=== PATIENT | male | born 1940 | race Caucasian/White ===

== ENCOUNTER → 2016-07-05 | Outpatient (CLI) | payer OTHER ==
[~2016-07-05] MED LIST: ACET500T57 PO; MULT-506 PO; PRD/1 PO; ZNTT/150 PO
--- NOTE | 2016-07-05 12:57 | DIAGNOSTIC IMAGING REPORT ---
RIGHT LOWER EXTREMITY VENOUS DOPPLER HISTORY: Right calf pain and swelling. COMPARISON STUDY: None. FINDINGS: There is normal compressibility, flow, and augmentation within the right lower extremity deep venous system. There is a 3.1 x 2.3 x 1.8 cm popliteal cyst. IMPRESSION: No DVT within the right lower extremity. Popliteal cyst. Electronically signed by: Ab Morrison M.D. 07/05/2016 12:55 PM Dictated Date/Time: 07/05/2016 12:55 PM
== END | disposition home or self-care (01) ==
LOC: C.ULTRBC 12:13
PROVIDERS: ATTEND Orthopaedic Surgery
DX: M79.661 Pain in right lower leg (principal); R22.41 Localized swelling, mass and lump, right lower limb

== ENCOUNTER → 2016-08-04 | Outpatient (CLI) | payer OTHER ==
--- NOTE | 2016-08-04 11:43 | DIAGNOSTIC IMAGING REPORT ---
ULTRASOUND RIGHT LOWER EXTREMITY VENOUS CLINICAL HISTORY: Right leg pain and swelling. COMPARISON STUDY: Right lower extremity venous ultrasound dated 07/05/2016. TECHNIQUE: Real-time, grayscale, and color Doppler sonography of the deep veins of the right lower extremity was performed from the inguinal crease to the calf. Compression and augmentation were utilized. FINDINGS: There is no sonographic evidence of deep venous thrombosis identified in the right lower extremity. The common femoral, superficial femoral, and popliteal veins are patent and normally compressible. The greater saphenous vein and the profunda femoris vein at the junction with the common femoral vein are clear. The visualized calf veins are patent. A small popliteal cyst 3.8 x 1.2 x 2.9 cm. Soft tissue edema is present in the right leg. IMPRESSION: 1. There is no sonographic evidence of deep venous thrombosis identified in the right lower extremity. 2. Small popliteal cyst. Electronically signed by: Chepe Acevedo M.D. 08/04/2016 11:41 AM Dictated Date/Time: 08/04/2016 11:40 AM
== END | disposition home or self-care (01) ==
LOC: C.ULTRBC 11:11
PROVIDERS: ATTEND Nurse Practitioner Adult Health
DX: R60.0 Localized edema (principal); M71.21 Synovial cyst of popliteal space [Baker], right knee

== ENCOUNTER → 2016-10-07 | Outpatient (CLI) | payer OTHER ==
[2016-10-07 16:54] LABS: SYNOVIAL FLUID APPEARANCE CLOUDY; SYNOVIAL FLUID COLOR AMBER; SYNOVIAL FLUID MONONUC RELAT 68.6 %; SYNOVIAL FLUID POLYNUC RELAT 31.4 %
[2016-10-11 04:37] LABS: LYME DNA PCR CSF OR SYNOVIAL Not detected (Not Detected); LYME DNA SOURCE Synovial Fluid
== END | disposition home or self-care (01) ==
LOC: C.LABBC 14:24
PROVIDERS: ATTEND Orthopaedic Surgery
DX: M25.461 Effusion, right knee (principal)

== ENCOUNTER → 2016-10-31 | Outpatient (CLI) | payer OTHER ==
[2016-10-31 11:43] LABS: BASO % 0.2 %; BASO ABS # 0.01 K/uL (0-0.2); COMPLETE YES; EOS % 4.7 %; HEMATOCRIT 37.2 % (42-52); IG% 0.7 %; LYMPH % 15.2 %; LYMPH ABS # 0.65 K/uL (1.2-3.4); MEAN CELL VOLUME 87.9 fL (80-100); MEAN CORPUSCULAR HEMOGLOBIN 29.6 pg (25-34); MEAN CORPUSCULAR HGB CONC 33.6 g/dl (32-36); MEAN PLATELET VOLUME 9.4 fL (7.4-10.4); MONO % 8.2 %; PLATELET COUNT 185 K/uL (130-400); RED BLOOD COUNT 4.23 M/uL (4.7-6.1); WHITE BLOOD COUNT 4.27 K/uL (4.8-10.8)
[2016-10-31 12:10] LABS: BLOOD UREA NITROGEN 23 mg/dl (7-18); BUN/CREATININE RATIO 23.5 (10-20); C-REACTIVE PROTEIN < 0.29 mg/dl (0-0.29); CARBON DIOXIDE 29 mmol/L (21-32); CHLORIDE 106 mmol/L (98-107); CREATININE 0.96 mg/dl (0.60-1.40); GLUCOSE 93 mg/dl (70-99); SODIUM 141 mmol/L (136-145)
[2016-10-31 12:11] LABS: PHOSPHORUS 3.4 mg/dl (2.5-4.9)
[2016-10-31 13:19] LABS: CALCIUM 9.4 mg/dl (8.5-10.1)
== END | disposition home or self-care (01) ==
LOC: C.LAB 11:01
PROVIDERS: ATTEND Nurse Practitioner Family
DX: M06.9 Rheumatoid arthritis, unspecified (principal); M25.561 Pain in right knee

== ENCOUNTER → 2017-04-10 | Outpatient (CLI) | payer OTHER ==
[2017-04-10 10:17] LABS: BLOOD UREA NITROGEN 23 mg/dl (7-18); BUN/CREATININE RATIO 21.8 (10-20); CALCIUM 8.9 mg/dl (8.5-10.1); CARBON DIOXIDE 29 mmol/L (21-32); CHLORIDE 106 mmol/L (98-107); CHOLESTEROL 176 mg/dl (0-200); CREATININE 1.05 mg/dl (0.60-1.40); GLUCOSE 90 mg/dl (70-99); POTASSIUM 4.6 mmol/L (3.5-5.1); SODIUM 139 mmol/L (136-145)
[2017-04-10 10:21] LABS: CHOLESTEROL/HDL RATIO 4.1; HDL CHOLESTEROL 43 mg/dl; LDL CHOLESTEROL CALCULATED 120 mg/dl; TRIGLYCERIDES 65 mg/dl (0-150); VERY LOW DENSITY LIPOPROT CALC 13 mg/dl
== END | disposition home or self-care (01) ==
LOC: C.LAB 09:00
PROVIDERS: ATTEND Nurse Practitioner Family
DX: Z13.220 Encounter for screening for lipoid disorders (principal)

== ENCOUNTER → 2018-01-15 | Outpatient (CLI) | payer OTHER ==
[~2018-01-15] MED LIST changes: -ACET500T57 PO; +ACET500T58 PO; +RANI150T85 PO; -ZNTT/150 PO
[2018-01-15 11:28] LABS: BLOOD UREA NITROGEN 29 mg/dl (7-18); CALCIUM 8.9 mg/dl (8.5-10.1); CARBON DIOXIDE 28 mmol/L (21-32); CREATININE 0.92 mg/dl (0.60-1.40); GLUCOSE 87 mg/dl (70-99); POTASSIUM 4.4 mmol/L (3.5-5.1); SODIUM 141 mmol/L (136-145)
== END | disposition home or self-care (01) ==
LOC: C.LABBC 09:02
PROVIDERS: ATTEND Family Medicine Adult Medicine
DX: M06.9 Rheumatoid arthritis, unspecified (principal)

== ENCOUNTER 2018-07-20 10:12 | Inpatient (IN) ==
--- NOTE | 2018-06-20 10:41 | PAT Medication Instructions ---
Medication Instructions Date of Service June 20, 2018 Home Medications amoxicillin-pot clavulanate 1 tab PO Q12H ibuprofen 600 mg PO TID PRN omeprazole magnesium [Prilosec OTC] 20 mg PO QAM Continue as directed amoxicillin-pot clavulanate 1 tab PO Q12H ASK your surgeon for instructions ibuprofen 600 mg PO TID PRN Take morning of surgery With a small sip of water, OTHERWISE NOTHING TO EAT OR DRINK AFTER MIDNIGHT: omeprazole magnesium [Prilosec OTC] 20 mg PO QAM Other Notes If you have any questions please call us at [phone] or [phone] or [phone] or [phone]
--- NOTE | 2018-06-20 11:02 | Anesthesiology Consultation ---
Date of Service June 20, 2018 Assessment & Plan (1) Encounter for pre-operative examination: Chart Review Chart Review: Acceptable Risk for Surgery and Patient seen in Pre Admission Testing Teaching & Discussion Instructed NPO after midnight before surgery, except medications with 15 cc of water. Medication instructions provided according to the PAT guidelines. History Surgery Operation Date: 07/20/18 07:00 Proposed Procedures p Left Total Knee Arthroplasty - Hai Landeros, Height/Weight Height: 5 ft 7 in Weight: 68.8 kg Allergies Allergy/AdvReac Type Severity Reaction Status Date / Time No Known Allergies Allergy Verified 06/15/18 10:53 Medications Home Medications Medication Instructions Recorded Confirmed Last Taken amoxicillin-pot clavulanate 1 tab PO Q12H 06/15/18 06/15/18 Unknown ibuprofen 600 mg PO TID PRN 06/15/18 06/15/18 Unknown omeprazole magnesium [Prilosec OTC] 20 mg PO QAM 06/15/18 06/15/18 Unknown Past Medical History Medical History GERD (gastroesophageal reflux disease) Lyme disease 3-4 YRS AGO TREATED AT [facility]-RESIDUAL JOINT DISCOMFORT PER PT Osteoarthritis Salivary gland adenitis currently being treated for with Augmentin Past Family History Family History Father Family hx of colon cancer Past Surgical History Surgical History History of appendectomy History of colonoscopy History of esophagogastroduodenoscopy (EGD) History of herniorrhaphy Past Anesthesia History No Hx of Anesthesia Complications and No Family Hx of Anesthesia Complications History of PONV No Motion Sickness Screening History of Motion Sickness: No Social History Smoking Status: Never smoker Do You Dip or Chew Tobacco: No Alcohol type: beer alcohol intake frequency: a few times a week Hx Substance Use: No Exercise / Class Metabolic Activity II 4-5 Yardwork/Stairs/Walk up hill (limited by knee pain but does stairs daily without SOB or CP) Review of Systems Pt denies any recent chest pain, shortness of breath, palpitations, fever or URI. Recent cough, mild, no fever. Physical Exam Vital Signs BP: 163/79 (pt and family recently discussed this with PCP, no meds advised at this time) P: 68 bpm SPO2: 98% RA T: 97.8 F R: 18 ENMT Mouth: + dentures (lower partial); no chipped teeth and no loose teeth Thyromental Distance: < 3.5 Finger Breadths (3) Mallampati Class: II Neck normal visual inspection; neck extension not limited Respiratory normal respiratory effort Auscultation: + diminished lung sounds (in bases); no crackles, no rhonchi and no wheezes Cardiovascular Rate/Rhythm: regular rate and regular rhythm Heart Sounds: no murmur Vessels: no carotid bruit Extremities: no edema Testing Electrocardiogram Date: 06/20/18 Findings: + NSR @ (70) Chest X-Ray Date: 06/20/18 Findings: + NAD Cardiomegaly and emphysema. Laboratory Results 06/20/18 Unknown 06/20/18 11:20 Blood Type A Positive 06/20/18 Unknown Antibody Screen NEGATIVE 06/20/18 Unknown PT 10.7 Seconds (9.0-12.0) 06/20/18 Unknown INR 1.1 (0.9-1.1) 06/20/18 Unknown APTT 30.0 Seconds (21.0-31.0) 06/20/18 Unknown
--- NOTE | 2018-06-20 11:49 | XRay Report ---
TWO VIEW CHEST CLINICAL HISTORY: Preoperative examination. FINDINGS: PA and lateral chest radiographs are compared to study dated 02/19/2010. The heart is enlarge d and there is atherosclerotic calcification of the thoracic aorta. The pulmonary vasculature is nonc ongested. Emphysema and chronic interstitial thickening are similar to previous. No airspace consolid ation or pleural effusion is identified. There is mild bibasilar scarring/atelectasis. There is no pn eumothorax. The skeletal structures are osteopenic. The bony thorax appears intact. Degenerative duffy ge is seen throughout the thoracic spine. IMPRESSION: Cardiomegaly and emphysema with no active disease in the chest. Electronically signed by: Chepe Acevedo M.D. 06/20/2018 11:48 AM
[2018-06-20 13:17] LABS: Basophils # (auto) 0.01 K/uL (0-0.2); Basophils % (auto) 0.2 %; Eosinophils % (auto) 4.5 %; Hematocrit (blood only) 35.7 % (42-52); Immature Granulocytes % (auto) 2.3 %; Lymphocytes # (auto) 0.53 K/uL (1.2-3.4); Mean Corpuscular Hgb Conc 33.6 g/dL (32-36); Mean Corpuscular Volume 88.6 fL (80-100); Mean Platelet Volume 10.2 fL (7.4-10.4); Monocytes % (auto) 11.4 %; Neutrophils # (auto) 3.06 K/uL (1.4-6.5); Neutrophils % (auto) 69.6 %; Platelet Count 189 K/uL (130-400); RDW Coefficient of Variation 14.3 % (11.5-14.5); RDW Standard Deviation 46.8 fL (36.4-46.3); Red Blood Count 4.03 M/uL (4.7-6.1)
[2018-06-20 13:29] LABS: INR 1.1 (0.9-1.1); Partial Thromboplastin Ratio 1.2; Prothrombin Time 10.7 Seconds (9.0-12.0)
[2018-06-20 13:37] LABS: BUN Creatinine Ratio 29.6 (10-20); Calcium 8.7 mg/dl (8.5-10.1); Creatinine Clr Calc Pharmacy 61.5 ml/min; Est GFR (African American) 92.6; Est GFR (Non-African American) 79.9; Potassium 4.3 mmol/L (3.5-5.1)
--- NOTE | 2018-07-19 06:32 | History & Physical Report ---
Date of Service July 19, 2018 Assessment & Plan (1) Osteoarthritis of left knee: We will proceed with a left total knee arthroplasty. Postoperatively he will be placed on aspirin for DVT prophylaxis. He will be kept overnight in the hospital for postoperative medical management. He plans to use energy physical therapy upon discharge. Present on Admission?: Yes History of Present Illness Chief Complaint: Primary osteoarthritis of the left knee Primary Care Provider: Maria D Jimenez MD Tremaine is a pleasant 77-year-old male who is been having a long history of chronic bilateral knee pain. X-rays and clinical examination have been diagnostic for primary osteoarthritis of both knees. His left knee is hurting him more than his right. After failing extensive conservative treatment including years of cortisone injections, he has elected to proceed with a left total knee arthroplasty. Allergies Allergy/AdvReac Type Severity Reaction Status Date / Time No Known Allergies Allergy Verified 06/15/18 10:53 Home Medications Home Medications Medication Instructions Recorded Confirmed Type amoxicillin-pot clavulanate 1 tab PO Q12H 06/15/18 06/15/18 History ibuprofen 600 mg PO TID PRN 06/15/18 06/15/18 History omeprazole magnesium [Prilosec OTC] 20 mg PO QAM 06/15/18 06/15/18 History Past Med/Surg History Medical History GERD (gastroesophageal reflux disease) Lyme disease 3-4 YRS AGO TREATED AT [facility]-RESIDUAL JOINT DISCOMFORT PER PT Osteoarthritis Salivary gland adenitis currently being treated for with Augmentin Surgical History History of appendectomy History of colonoscopy History of esophagogastroduodenoscopy (EGD) History of herniorrhaphy Family History Father Family hx of colon cancer Social History Current Living Situation: Spouse Other Information That Helps Us Care for You: No Feels Safe at Home: Yes Safety Concerns: Feels Safe At This Time Smoking Status: Never smoker Do You Dip or Chew Tobacco: No Hx Substance Use: No Beliefs That Will Affect Care: None Preferred Language: Azeri Communication Ability: Effective Log Driver Required: No
[~2018-07-20 10:12] MED LIST changes: -ACET500T58 PO; +ACETAMINOPHEN 500 MG TAB PO SCH; +BUPIVACAINE 0.5 % 5 MG/1 ML PF 10ML VIAL ONE; +CEFAZOLIN 2000MG 2,000 MG/15 ML SYR IV SCH; +FAMOTIDINE 20 MG TAB PO SCH; +GABAPENTIN 300 MG PO SCH; +LR 15ML/HR IV SCH; +LR 60ML/HR IV SCH; -MULT-506 PO; -PRD/1 PO; -RANI150T85 PO; +ROPIVACAINE 0.5% 5 MG/ML 30 ML VIAL ONE; +ROPIVACAINE 0.5% HCL/PF 150 MG, BUPIVACAINE 0.5% MPF 30 ML, EPINEPHrine 30MG/30ML (OR U... INFIL SCH; +TRANEXAMIC ACID 1,000 MG **IV Intra-op IV SCH; +TRANEXAMIC ACID 1,000 MG **IV Pre-op IV SCH
--- NOTE | 2018-07-20 10:20 | History & Physical Bridge Note ---
Date of Service July 20, 2018 History & Physical Bridge Note I have examined the patient, reviewed the History & Physical and in the interval since the performance of the History & Physical I have noted the following changes of clinical significance: no changes noted
[2018-07-20] MEDS: LR 500ML BOLUS, THEN 15ML/HR IV SCH ×6 (10:39→19:13)
[2018-07-20] MEDS ORDERED: ORTHO JOINT ANESTHETIC ONE (10:40)
[2018-07-20] MEDS ORDERED: POVIDONE-IODINE OP SOLN 30 ML BTL ONE (10:40)
[2018-07-20] MEDS ORDERED: BACITRACIN INJ 50,000 UNIT VIAL ONE (10:40)
[2018-07-20] MEDS ORDERED: PROPOFOL IV EMULSION 10 MG/ML 20 ML VIAL IV ONE (10:42)
[2018-07-20] MEDS ORDERED: LIDOCAINE HCL 2% 2 ML VIAL/AMP(20MG/ML) INFIL ONE (10:42)
[2018-07-20] MEDS ORDERED: fentaNYL citrate 100 MCG/2 ML VIAL ONE (10:42)
[2018-07-20] MEDS ORDERED: ONDANSETRON INJ 2 MG/ML 2 ML VIAL ONE (10:43)
[2018-07-20] MEDS ORDERED: DEXAMETHASONE SOD INJ 4 MG/ML VIAL ONE (10:43)
[2018-07-20] MEDS ORDERED: ATROPINE SULFATE 0.1 MG/ML 10ML SYR IV PRN (11:19)
[2018-07-20] MEDS ORDERED: ePHEDrine sulfate 50 MG/ML AMP IV PRN (11:19)
[2018-07-20] MEDS ORDERED: MIDAZOLAM HCL 1 MG/ML 2ML VIAL ONE (11:24)
--- NOTE | 2018-07-20 13:25 | Operative Report ---
Post Operative Report Pre & Post Diagnosis Operation Date: 07/20/18 12:30 Pre-Op Diagnosis: Left Knee Degenerative Joint Disease Post-Op Diagnosis: Left Knee Degenerative Joint Disease Procedure Operation Date: 07/20/18 12:30 Actual Procedures p Left Total Knee Arthroplasty(Left) - Hai Landeros DO Surgeon Hai Landeros DO Valuation Consultant Hai Cervantes PAC Estimated Blood Loss 50 Findings Consistent with Post-Op Diagnosis Specimens Left femoral and tibial bone Complications none Disposition Disposition: Recovery Room Indications Tremaine is a pleasant 77-year-old male who presented my office with chronic increasing left knee pain. X-rays and clinical examination were diagnostic for primary osteoarthritis of the left knee. After failing extensive conservative treatment, he elected to proceed with a left total knee arthroplasty. Description of Procedure Implants used: I used a [employer]omet Vanguard total knee arthroplasty system with a size 75 femur, 75 tibia, 34 patella, and a size 10 PS polyethylene bearing. All components were cemented in place with Palacos G cement. The patient arrived [facility] for the above procedure. There were seen in the preoperative holding area and the operative extremity was identified and signed. There were given a preoperative antibiotic, a spinal anesthetic and an adductor nerve block. There were taken back to the operating room and laid on the table in supine position. There were given basic sedation. The operative knee was then prepped and draped in sterile fashion. A timeout was done, and the patient and the operative extremity was properly identified. A midline incision was made directly over the patella. Dissection was taken down to the extensor mechanism. A subvastus arthrotomy was used. The medial retinaculum was released and the fat pad was mostly left intact. The knee was flexed and the ACL, PCL, and meniscus were removed. A drill was sent down the center of the femoral canal followed by an intramedullary junie. Off that junie a distal femoral cutting block was placed. 9 mm was resected off the distal femur at 5� of valgus. A posterior referencing AP sizing guide was then placed on the distal femur. The femur measured to be a size 75. 2 drill holes were placed in 3� of external rotation. A 4-in-1 cutting block was then impacted into place. Anterior posterior and chamfer cuts were then made. The posterior stabilizing box guide was then impacted into place and the box was resected for the posterior stabilizing component. The proximal tibia was then exposed. A drill was sent down the center of the tibial canal followed by an intramedullary junie. Off that junie a proximal tibial resection guide was placed. The proximal tibia was then resected. The tibia measured to be a size 75. The tibial plate was then placed in the appropriate rotation and the tibia was punched. The posterior aspect of the knee was then opened up and any additional meniscus fragments and osteophytes were removed. Trial components were then placed. I used a size 10 PS polyethylene insert. The knee was brought through a full range of motion and felt to be stable. The patella was then everted and 8 mm was resected off the posterior aspect of the patella. The patella measured to be a size 34. 3 peg holes were then drilled. A trial patella was placed. The knee was once again brought through a full range of motion and felt to be stable. Trial components were then removed. The surrounding soft tissues were injected with 100 cc of an orthopedic pain control cocktail. All components were then cemented into place with Palacos G cement. The final polyethylene insert was then snapped into place and the anterior bar was locked. Once cement was dry the tourniquet was deflated. Hemostasis was obtained. A dilute betadyne lavage was then done for 3 minutes. The joint was then irrigated with normal saline solution. The subvastus arthrotomy was then closed with #1 Vicryl suture. The skin was closed with 2-0 Vicryl, 3-0V lock suture, and noemí. A soft compressive dressing was placed. The patient was then transferred to a hospital bed and taken to the postanesthesia care unit in stable condition. They tolerated the procedure well. I attest to the content of the Intraoperative Record and any orders documented therein. Any exceptions are noted below.
--- NOTE | 2018-07-20 14:19 | XRay Report ---
XR knee LT 2V routine CLINICAL HISTORY: Surgical Post Op COMPARISON: 09/14/2012 DISCUSSION: There are postsurgical changes of a total left knee arthroplasty and patellar resurfacing . The femoral and tibial components appear well seated. Overlying skin noemí are evident. There is air within the soft tissues consistent with recent surgery. IMPRESSION: Postsurgical changes of a total left knee arthroplasty. Electronically signed by: Ean Alvarez M.D. 07/20/2018 2:18 PM
--- NOTE | 2018-07-20 14:57 | Anesthesiology Progress Note ---
Date of Service July 20, 2018 Anesthesia Post Procedure Vital Signs Vital Signs: Temp Pulse Pulse Resp BP Pulse Ox 07/20/18 14:35 63 14 147/79 H 100 07/20/18 14:25 63 18 149/76 H 100 07/20/18 14:15 67 15 145/83 H 100 07/20/18 14:05 62 15 153/88 H 100 07/20/18 13:57 36.4 C L 69 21 143/79 H 100 07/20/18 10:47 36.5 C 75 20 157/83 H 99 Pain Intensity Left Knee: Pain Intensity: 8 Notes Mental Status: alert / awake / arousable and participated in evaluation Patient Amnestic to Procedure: Yes Nausea / Vomiting: adequately controlled Pain: adequately controlled Airway Patency, RR, SpO2: stable & adequate BP & HR: stable & adequate Hydration State: stable & adequate Neuraxial Anesthesia: was administered and sensory block is resolving Anesthetic Complications: no major complications apparent
[2018-07-20] MEDS ORDERED: MAGNESIUM HYDROXIDE SUSP 30 ML UDC PO PRN (15:23)
[2018-07-20] MEDS ORDERED: HYDROmorphone INJ 0.5 MG/0.5 ML SYR IV PRN (15:23)
[2018-07-20] MEDS ORDERED: NALOXONE HCL 0.4 MG/1 ML VIAL/CARP IV PRN (15:23)
[2018-07-20] MEDS ORDERED: BISACODYL 10 MG SUPP PR PRN (15:23)
[2018-07-20] MEDS ORDERED: ONDANSETRON INJ 2 MG/ML 2 ML VIAL IV PRN (15:23)
[2018-07-20] MEDS ORDERED: OXYCODONE HCL IR 5 MG TAB (IMMEDIATE RELEASE) PO PRN (15:23)
[2018-07-20] MEDS ORDERED: METOCLOPRAMIDE HCL INJ 5 MG/ML 2 ML VIAL IV PRN (15:23)
[2018-07-20] MEDS ORDERED: PNEUMOCOCCAL ADMINISTRATION CHARGE ONE (16:15)
[2018-07-20] MEDS ORDERED: PNEUMOCOCCAL POLYSACCHARIDES 25 MCG/0.5 ML VIAL/SYR IM ONE (16:15)
[2018-07-20] MEDS: SODIUM CHLORIDE 0.9% 1000ML 1,000 ML IV SCH (17:43)
[2018-07-20] MEDS: KETOROLAC TROMETHAMINE 15 MG/ML VIAL IV SCH ×2 (17:47→22:00)
[2018-07-20] MEDS: CEFAZOLIN 1000MG 1,000 MG/7.5 ML SYR IV SCH (20:30)
[2018-07-20] MEDS: DOCUSATE SODIUM 100 MG CAP PO SCH (20:30)
[2018-07-20] MEDS: ASPIRIN 81 MG ECTAB PO SCH (20:30)
[2018-07-20] MEDS ORDERED: SENNA 8.6 MG TAB PO SCH (21:00)
[2018-07-20] MEDS: ACETAMINOPHEN 500 MG TAB PO SCH (22:00)
[2018-07-21] MEDS: CEFAZOLIN 1000MG 1,000 MG/7.5 ML SYR IV SCH (04:04)
[2018-07-21] MEDS: SODIUM CHLORIDE 0.9% 1000ML 1,000 ML IV SCH (04:40)
[2018-07-21 05:55] LABS: Hematocrit (blood only) 29.1 % (42-52); Hemoglobin 9.8 g/dL (14.0-18.0); Mean Corpuscular Hgb Conc 33.7 g/dL (32-36); Mean Corpuscular Volume 86.6 fL (80-100); Mean Platelet Volume 9.7 fL (7.4-10.4); Platelet Count 125 K/uL (130-400); RDW Coefficient of Variation 14.3 % (11.5-14.5); RDW Standard Deviation 45.7 fL (36.4-46.3); Red Blood Count 3.36 M/uL (4.7-6.1); White Blood Count 6.83 K/uL (4.8-10.8)
[2018-07-21] MEDS: ACETAMINOPHEN 500 MG TAB PO SCH (06:07)
[2018-07-21] MEDS: KETOROLAC TROMETHAMINE 15 MG/ML VIAL IV SCH ×2 (06:07→09:16)
[2018-07-21 06:22] LABS: BUN Creatinine Ratio 29.1 (10-20); Creatinine Clr Calc Pharmacy 62.2 ml/min; Est GFR (African American) 93.8; Est GFR (Non-African American) 80.9
--- NOTE | 2018-07-21 07:07 | Orthopedic Progress Note ---
Date of Service July 21, 2018 Assessment & Plan (1) Osteoarthritis of left knee: Overall he is doing very well. Is not having much pain in the left knee. I think the block is still working a little bit. He will be seen by physical therapy today for ambulation. If he does well today then he can be discharged home with home physical therapy. He is on aspirin for DVT prophylaxis and oxycodone for pain control. He will follow-up with orthopedics in 2 weeks. Present on Admission?: Yes Subjective Bob was seen and examined at bedside this morning. Overall is doing very well. Is not having much pain in the left knee. He is been up and ambulating to the bathroom. He has no complaints. Physical Exam 2 Vital Signs (Past 24 Hours): Last Vital Signs Temp 36.4 C L 07/21/18 03:12 Pulse 75 07/21/18 03:12 Resp 16 07/21/18 03:12 BP 165/83 H 07/21/18 03:12 Pulse Ox 99 07/21/18 03:12 Musculoskeletal: Physical examination of the left knee, the dressing is clean and dry. His legs in full extension. He still some numbness of his lower extremity. He is unable to do dorsiflexion of his ankle at this point but appears the block is still working. Results & Data Laboratory Results H & H 06/20/18 07/21/18 Range/Units Unknown 05:32 Hgb 12.0 L 9.8 L (14.0-18.0) g/dL Hct 35.7 L 29.1 L (42-52) % Coagulation 06/20/18 Range/Units Unknown INR 1.1 (0.9-1.1) Diagnostic Findings Postoperative x-rays of the left knee show the prosthesis to be in anatomic alignment without any evidence of fracture, dislocation, or loosening.
--- NOTE | 2018-07-21 07:09 | Discharge Summary ---
Date of Service July 21, 2018 Admission HPI Per Admitting Provider Tremaine is a pleasant 77-year-old male who is been having a long history of chronic bilateral knee pain. X-rays and clinical examination have been diagnostic for primary osteoarthritis of both knees. His left knee is hurting him more than his right. After failing extensive conservative treatment including years of cortisone injections, he has elected to proceed with a left total knee arthroplasty. Specialty Data Orthopedic H & H 06/20/18 07/21/18 Range/Units Unknown 05:32 Hgb 12.0 L 9.8 L (14.0-18.0) g/dL Hct 35.7 L 29.1 L (42-52) % Coagulation 06/20/18 Range/Units Unknown INR 1.1 (0.9-1.1) Discharge Data Consultations 07/20/18 15:23 Consult Case Management - Discharge Planning Routine Procedures Performed Operation Date: 07/20/18 12:30 Actual Procedures p Left Total Knee Arthroplasty(Left) - Hai Landeros DO Hospital Course (1) Osteoarthritis of left knee: On July 20, 2018 Bob arrived at [facility] and underwent a left total knee arthroplasty without complication. He had a spinal anesthetic and a left adductor nerve block. Postoperatively he was started on aspirin for DVT prophylaxis and discharged to general orthopedic floors. His hospital course was uneventful. On postop day #1 his H&H was stable and his pain was well controlled. He was able to ambulate well with physical therapy. He was discharged to home with home physical therapy. He will follow-up with orthopedics in 2 weeks. Discharge Instructions Home Medications Medication Instructions Recorded Confirmed amoxicillin-pot clavulanate 1 tab PO Q12H 06/15/18 07/20/18 ibuprofen 600 mg PO TID PRN 06/15/18 07/20/18 omeprazole magnesium [Prilosec OTC] 20 mg PO QAM 06/15/18 07/20/18 Previous Rx's Medication Instructions Recorded aspirin [Ecotrin Low Strength] 81 mg PO BID #84 tab 07/21/18 oxycodone 5 - 10 mg PO Q4H PRN #40 tab 07/21/18
[2018-07-21] MEDS ORDERED: PANTOprazole 40 MG TAB PO SCH (09:00)
[2018-07-21] MEDS ORDERED: MULTIVITAMIN TAB PO SCH (09:00)
[2018-07-21] MEDS: DOCUSATE SODIUM 100 MG CAP PO SCH (09:08)
[2018-07-21] MEDS: ASPIRIN 81 MG ECTAB PO SCH (09:09)
== END 2018-07-21 11:50 | disposition home or self-care (01) | DRG 470 ==
LOC: ASU 10:12 → 3E 13:28

== ENCOUNTER 2019-09-25 15:42 | Inpatient (IN) ==
[2019-09-25] MEDS ORDERED: ASPIRIN CHEW 324 MG PO STA (15:50)
[2019-09-25 16:24] LABS: Eosinophils # (auto) 0.14 K/uL (0-0.5); Eosinophils % (auto) 3.7 %; Hematocrit (blood only) 31.4 % (42-52); Hemoglobin 10.6 g/dL (14.0-18.0); Immature Granulocytes # (auto) 0.02 K/uL (0.00-0.02); Immature Granulocytes % (auto) 0.5 %; Lymphocytes # (auto) 0.77 K/uL (1.2-3.4); Lymphocytes % (auto) 20.4 %; Mean Corpuscular Hemoglobin 29.5 pg (25-34); Mean Corpuscular Hgb Conc 33.8 g/dL (32-36); Mean Corpuscular Volume 87.5 fL (80-100); Mean Platelet Volume 10.4 fL (7.4-10.4); Monocytes # (auto) 0.42 K/uL (0.11-0.59); Monocytes % (auto) 11.1 %; Neutrophils # (auto) 2.42 K/uL (1.4-6.5); Neutrophils % (auto) 64.3 %; Platelet Count 167 K/uL (130-400); RDW Coefficient of Variation 15.3 % (11.5-14.5); RDW Standard Deviation 49.6 fL (36.4-46.3); Red Blood Count 3.59 M/uL (4.7-6.1); White Blood Count 3.77 K/uL (4.8-10.8)
--- NOTE | 2019-09-25 16:29 | XRay Report ---
SINGLE VIEW CHEST CLINICAL HISTORY: Atypical chest pain. Dyspnea. FINDINGS: An AP, portable, upright chest radiograph is compared to study dated 06/20/2018. The examinat ion is degraded by portable technique and patient rotation. The heart is mildly enlarged noting athe rosclerotic calcification of the thoracic aorta. The pulmonary vasculature is noncongested. Chronic i nterstitial thickening is similar to previous. There is mild bibasilar scarring/atelectasis. No airsp maria teresa consolidation or large pleural effusion is identified. No pneumothorax is seen. The skeletal stru ctures are osteopenic. The bony thorax is grossly intact. Degenerative change is noted in the shoulde rs. IMPRESSION: Cardiomegaly with no active disease in the chest. ACT 112: Negative or not required by law. Electronically signed by: Chepe Acevedo M.D. 09/25/2019 4:27 PM
[2019-09-25 16:31] LABS: Albumin Level 3.3 gm/dl (3.4-5.0); BUN Creatinine Ratio 24.4 (10-20); Calcium 8.7 mg/dl (8.5-10.1); Creatinine Clr Calc Pharmacy 50.6 ml/min; Est GFR (African American) 75.1; Est GFR (Non-African American) 64.8
[2019-09-25 16:42] LABS: Partial Thromboplastin Ratio 1.1; Partial Thromboplastin Time 29.9 Seconds (21.0-31.0); Prothrombin Time 10.8 Seconds (9.0-12.0)
[2019-09-25 16:46] LABS: Albumin Globulin Ratio 0.8 (0.9-2); Bilirubin,Total 0.2 mg/dl (0.2-1); Globulin 4.1 gm/dl (2.5-4.0); Total Protein 7.4 gm/dl (6.4-8.2); Troponin I 0.629 ng/ml (0-0.045)
[2019-09-25] MEDS ORDERED: HEPARIN SOD (PORCINE) 1000 UNIT/ML 10 ML VIAL ONE (16:57)
[2019-09-25] MEDS ORDERED: HEPARIN SODIUM/DEXTROSE 25,000 UNITS/500 ML BAG IV SCH (17:00)
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
[2019-09-25] MEDS ORDERED: MoRPHine SULFATE 2 MG/ML CARP IV PRN (19:28)
[2019-09-25] MEDS ORDERED: ONDANSETRON INJ 2 MG/ML 2 ML VIAL IV PRN (19:28)
[2019-09-25] MEDS ORDERED: ACETAMINOPHEN 325 MG TAB PO PRN (19:28)
[2019-09-25] MEDS: METOPROLOL TARTRATE 25 MG TAB PO SCH (21:27)
[2019-09-25 23:18] LABS: Partial Thromboplastin Ratio > 5.0
[2019-09-25 23:43] LABS: Partial Thromboplastin Time > 139.0 Seconds (21.0-31.0)
[2019-09-26 01:50] LABS: Partial Thromboplastin Ratio 3.6
[2019-09-26 02:07] LABS: Partial Thromboplastin Time 101.1 Seconds (21.0-31.0)
[2019-09-26 02:58] LABS: Hematocrit (blood only) 31.2 % (42-52); Hemoglobin 10.6 g/dL (14.0-18.0); Mean Corpuscular Hemoglobin 29.8 pg (25-34); Mean Corpuscular Volume 87.6 fL (80-100); Mean Platelet Volume 10.2 fL (7.4-10.4); Platelet Count 156 K/uL (130-400); RDW Coefficient of Variation 15.3 % (11.5-14.5); RDW Standard Deviation 49.2 fL (36.4-46.3); Red Blood Count 3.56 M/uL (4.7-6.1)
[2019-09-26 03:18] LABS: Partial Thromboplastin Ratio 3.9
[2019-09-26 03:19] LABS: Albumin Level 3.2 gm/dl (3.4-5.0); BUN Creatinine Ratio 23.3 (10-20); Calcium 8.6 mg/dl (8.5-10.1); Creatinine Clr Calc Pharmacy 55.3 ml/min; Est GFR (African American) 83.5; Magnesium 1.9 mg/dl (1.8-2.4); Potassium 3.8 mmol/L (3.5-5.1)
[2019-09-26 03:21] LABS: Partial Thromboplastin Time 107.6 Seconds (21.0-31.0)
[2019-09-26 03:22] LABS: Albumin Globulin Ratio 0.9 (0.9-2); Bilirubin,Total 0.3 mg/dl (0.2-1); Ferritin 102.3 ng/ml (8-388); Globulin 3.6 gm/dl (2.5-4.0); Total Protein 6.8 gm/dl (6.4-8.2); Troponin I 1.08 ng/ml (0-0.045)
[2019-09-26 04:23] LABS: Partial Thromboplastin Ratio 3.5
[2019-09-26 04:32] LABS: Partial Thromboplastin Time 96.4 Seconds (21.0-31.0)
[2019-09-26 05:44] LABS: Estimated Average Glucose 120 mg/dl; Hemoglobin A1C 5.8 % (4.5-5.6)
[2019-09-26] MEDS: lisinopriL 10 MG TAB PO SCH (08:21)
[2019-09-26] MEDS: ASPIRIN 81 MG ECTAB PO SCH (08:21)
[2019-09-26] MEDS: ATORVASTATIN 40 MG TAB PO SCH (08:21)
[2019-09-26] MEDS: METOPROLOL TARTRATE 25 MG TAB PO SCH ×2 (08:21→21:11)
[2019-09-26] MEDS: PANTOprazole 40 MG TAB PO SCH (08:22)
[2019-09-26] MEDS: CYANOCOBALAMIN 1000 MCG/ML VIAL IM SCH (08:22)
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
[2019-09-26] MEDS ORDERED: SODIUM CHLORIDE 0.9% 1000ML 1,000 ML IV SCH ×2 (09:30→12:15)
[2019-09-26] MEDS ORDERED: HEPARIN (PORCINE) 1000 UNIT/ML 10 ML (CATH LAB USE ONLY) ONE (10:01)
[2019-09-26] MEDS ORDERED: NiCARDipine HCL INJ 2.5 MG/ML 10 ML AMP ONE (10:01)
[2019-09-26] MEDS ORDERED: fentaNYL citrate 100 MCG/2 ML VIAL ONE (10:01)
[2019-09-26] MEDS ORDERED: NITROGLYCERIN/D5W 100MCG/ML 20ML SYR ONE (10:02)
[2019-09-26] MEDS ORDERED: MIDAZOLAM HCL 1 MG/ML 2ML VIAL ONE ×2 (10:02→11:07)
--- NOTE | 2019-09-26 10:19 | XCELERA ---
[id number] [id number]
[2019-09-26] MEDS ORDERED: ATROPINE SULFATE 0.1 MG/ML 10ML SYR IV ONE (10:43)
--- NOTE | 2019-09-26 10:50 | Electrocardiogram Report ---
Test Reason : Blood Pressure : / mmHG Vent. Rate : 086 BPM Atrial Rate : 086 BPM P-R Int : 158 ms QRS Dur : 088 ms QT Int : 374 ms P-R-T Axes : 057 -23 058 degrees QTc Int : 447 ms Normal sinus rhythm Normal ECG When compared with ECG of 20-JUN-2018 11:15, No significant change was found Confirmed by Kevin Arzola ([id number]) on 09/26/2019 10:49:50 AM Referred By: Confirmed By:Kevin Arzola
[2019-09-26] MEDS ORDERED: CLOPIDOGREL BISULFATE 300 MG TAB ONE (11:37)
[2019-09-26] MEDS ORDERED: TICAGRELOR 90 MG TAB PO ONE (11:40)
--- NOTE | 2019-09-26 11:58 | Post Anesthesia Assessment ---
Date of Service September 26, 2019 Post Sedation Assessment Vital Signs Temp Pulse Pulse Resp BP BP Pulse Ox 09/26/19 08:02 61 09/26/19 07:13 97.9 F 72 17 144/81 H 97 09/26/19 04:22 98.1 F 63 18 154/74 H 99 09/25/19 23:24 98.1 F 61 18 128/76 97 09/25/19 21:06 67 09/25/19 20:35 97.9 F 16 164/83 H 97 09/25/19 18:30 69 16 148/87 H 97 09/25/19 18:00 67 17 153/77 H 98 09/25/19 17:30 66 16 140/78 97 09/25/19 17:00 69 16 139/76 97 09/25/19 16:30 70 18 135/78 97 09/25/19 16:04 81 20 144/79 H 97 09/25/19 15:44 98.1 F 91 H 18 155/79 H 96 Recovery Score Activity: Moves 4 extremities Respiration: Deep Breath/Cough Circulation: +/-20% PreAnes Value Consciousness: Fully Awake Oxygen Saturation: O2 needed for >90% Discharge Sedation Level of Care: Fast Track Phase II Post Sedation Plan On clinical assessment, the patient appears to have tolerated the sedation without complications. Patient is recovering as anticipated. Patient will continue to be monitored by nursing and may be discharged when sedation discharge criteria are met per below protocol. Upon Completions of procedure up to 15 minutes continue every 5 minute vital signs and the P.A.R. score; then discharge to a Phase I or Fast Track to Phase II per the following guidelines: * Discharge Patient to appropriate Phase II area if PAR is 8 or greater or return to pre- procedure baseline. The post - procedure orders will be as directed. * If PAR score is less than 8 or not return to pre-procedure baseline then patient will follow Phase I monitoring till PAR is reached for Phase II. The Phase I may be done in procedure room or may call to secure a Phase I area. * If naloxone or flumazenil are used for reversal, hold in Phase I for continued monitoring from when last reversal dose was given for a minimum of 60 minutes or longer pending the nurse and/or physician discretion of patient condition before discharge to Phase II. Please call the Sedation Physician to re-evaluate and complete post-note for discharge to Phase II area. Do NOT discharge from procedure sedation or Phase 1 until post- sedation evaluation note is complete by procedure /sedation MD Sedation Discharge Instructions to be given to the patient at discharge to home.
--- NOTE | 2019-09-26 11:58 | Pre Anesthesia Assessment ---
Date of Service September 26, 2019 Pre Sedation Assessment Vital Signs Temp Pulse Pulse Resp BP BP Pulse Ox 09/26/19 08:02 61 09/26/19 07:13 97.9 F 72 17 144/81 H 97 09/26/19 04:22 98.1 F 63 18 154/74 H 99 09/25/19 23:24 98.1 F 61 18 128/76 97 09/25/19 21:06 67 09/25/19 20:35 97.9 F 16 164/83 H 97 09/25/19 18:30 69 16 148/87 H 97 09/25/19 18:00 67 17 153/77 H 98 09/25/19 17:30 66 16 140/78 97 09/25/19 17:00 69 16 139/76 97 09/25/19 16:30 70 18 135/78 97 09/25/19 16:04 81 20 144/79 H 97 09/25/19 15:44 98.1 F 91 H 18 155/79 H 96 Cardiovascular RRR, no murmur, no edema Respiratory normal respiratory effort, lungs clear to auscultation Pre-Sedation Airway Assessment Smoking Status: Never smoker Hx Sleep Apnea: No Hx Difficult Intubation: No Short, Thick Neck: No Thyromental Distance: > or= 3.5 Finger Breadths Oral Cavity: + WNL Mallampati Class: III ASA: ASA3 Procedure Planning Contraindications for Sedation: none Current Medications Reviewed: Yes Notes The planned sedation has been discussed with the patient. Informed Consent was obtained. I have identified the patient, determined the appropriateness of sedation and have assessed the patient immediately prior to the procedure. All medicine(s) and interventions are by my order.
[2019-09-26] MEDS ORDERED: ONDANSETRON INJ 2 MG/ML 2 ML VIAL IV PRN (12:01)
--- NOTE | 2019-09-26 12:01 | Post Operative Brief Note ---
Cardiology Brief Post Op Date of Surgery September 26, 2019 Pre & Post Diagnosis Operation Date: 09/26/19 10:30 <No data on this case meets the specified criteria> Procedure -- Armature Tester Santi Nguyen MD Devil Tender Román Estimated Blood Loss 15 Findings See Below Multivessel coronary artery disease - 95+% distal LAD (acute culprit). - 90% mid circumflex - Sequential 70-80% mid to distal LAD stenosis Successful PCI of distal RCA with single SUSANA (3.5 x 18 Karan). Successful PCI of mid circumflex with single SUSANA (2.75 x 18 [place], post-dilated with 3.0 NC) Plan for staged PCI of mid/distal LAD lesions likely tomorrow. Anesthesia Type RN Sedation Complications none Disposition Disposition: PCU
--- NOTE | 2019-09-26 12:12 | Hospitalist Progress Note ---
Date of Service September 26, 2019 Assessment & Plan (1) NSTEMI (non-ST elevated myocardial infarction): -patient presented with unstable angina and NSTEMI with positive troponin =0.629/1.01/1.08, EKG was reviewed without any ST or T wave changes/signs of ischemia -Was placed on heparin drip, aspirin, metoprolol, statin -Now status post cardiac catheterization on 09/25 with severe multivessel disease found: - 95+% acute distal RCA (likely culprit). 90+% mid circumflex 80 to 90% sequential lesions in mid and distal LAD Normal intracardiac filling pressure Successful PCI of distal RCA with single drug-eluting stent (3.5 x 18 mm Karan). Successful PCI of mid circumflex with single drug-eluting stent (2.75 x 18 mm Karan). -Loaded with ticagrelor 180 mg in cath -Continue dual-antiplatelet therapy for at least 1 year w/ ASA, Brilinta -Continue statin which was started here, and ASCVD risk factor modification-LDL 90, HDL 44 -Plan for staged PCI of mid, distal LAD during hospitalization, likely tomorrow pending stable renal function. -Echo with preserved EF, mild base to mid inferior, inferoseptal hypokinesis -Continue BP control with lisinopril -Started on metoprolol tartrate 25 BID -HgbA1C 5.8%-prediabetes -Appreciate Cardiology management -dc heparin gtt (2) Labile hypertension: -Continue lisinopril 10 mg daily, metoprolol 25 mg p.o. twice daily -Can likely titrate up on metoprolol dose tomorrow (3) B12 deficiency: -Patient has seen PCP about this in the past, and instructed to take supplementation however he has not started to do so yet. Likely contributing to anemia. B12 level very low -Started B12 1000 mcg IM daily x3 days while here -Check peripheral smear as also has leukopenia Iron studies within normal limits (4) Anemia: -Hemoglobin of 10.6 as above -Appears his baseline has been between 11 and 12 in the past year, likely worse as patient is not taking B12 supplementation, no signs of bleeding. This possibly adding to some demand ischemia and playing a role in ACS as above. (5) Sjogrens syndrome: -History of such (6) Rheumatoid arthritis: -Noted, stable, not on long-term steroids or immune modulating agents (7) Rosacea: -Noted, stable (8) DVT prophylaxis: -Heparin drip now off SCDs ASA/Brilinta CODE STATUS: Full Code Disposition: continued stay for 2 more days for repeat cath tomorrow Admission and Anticipated Discharge Date Admission Date: September 25, 2019 Anticipated date of discharge: 09/28/19 Subjective Patient just returned from cardiac catheterization when I saw him today. He reported feeling well. No further chest pain. No further shortness of breath. He denied nausea or abdominal pain, no lightheadedness. Telemetry with normal sinus rhythm with rates in the 50s to 60s Review of Systems Review of Systems: All systems reviewed & are unremarkable except as noted in HPI & below Physical Exam Constitutional: WD/WN, vitals as above Eyes: PERRL, conjunctivae normal, anicteric sclerae ENMT: external ear and nose normal, oropharynx normal Neck: trachea midline, no thyromegaly Respiratory: normal respiratory effort, lungs clear to auscultation Cardiovascular: RRR, no murmur, no edema Right wrist with TR band in place, no hematoma Chest (Breasts): Chest: normal inspection of chest Gastrointestinal (Abdomen): normal bowel sounds, soft, nontender, no hepatosplenomegaly Musculoskeletal: Extremities: extremities normal to inspection; no cyanosis and no clubbing Skin: no rashes, warm and dry Neurologic: moves all extremities and awake; no focal motor deficits Psychiatric: A+Ox3, euthymic affect Lymphatic: no lymphedema Results & Data Results & Data ([facility]) Vital Signs (Past 12 Hours) Vital Signs Temp Pulse Pulse Resp BP Pulse Ox 09/26/19 08:02 61 09/26/19 07:13 36.6 C 72 17 144/81 H 97 09/26/19 04:22 36.7 C 63 18 154/74 H 99 Laboratory Results 09/26/19 09/26/19 09/26/19 Range/Units 11:07 03:48 02:29 WBC (4.8-10.8) K/uL RBC (4.7-6.1) M/uL Hgb (14.0-18.0) g/dL Hct (42-52) % MCV (80-100) fL MCH (25-34) pg MCHC (32-36) g/dL RDW Std Deviation (36.4-46.3) fL RDW Coeff of Mireya (11.5-14.5) % Plt Count (130-400) K/uL MPV (7.4-10.4) fL Absolute Nucleated RBC (0-0) K/uL Nucleated RBC % (auto) % Peripher Smr Path Cons APTT 96.4 H* 107.6 H* (21.0-31.0) Seconds PTT Ratio 3.5 3.9 Activ Coag Time Kaolin 268 H (94-140) SECONDS Sodium (136-145) mmol/L Potassium (3.5-5.1) mmol/L Chloride (98-107) mmol/L Carbon Dioxide (21-32) mmol/L Anion Gap (3-11) BUN (7-18) mg/dl Creatinine (0.6-1.4) mg/dl Est Cr Clr Drug Dosing ml/min Est GFR ( Amer) Est GFR (Non-Af Amer) BUN/Creatinine Ratio (10-20) Glucose (70-99) mg/dl Estimat Average Glucose mg/dl Hemoglobin A1c (4.5-5.6) % Calcium (8.5-10.1) mg/dl Magnesium (1.8-2.4) mg/dl Iron (35-175) mcg/dl TIBC (250-450) mcg/dl Transferrin (200-360) mg/dl Transferrin % Sat (20-50) % Ferritin (8-388) ng/ml Total Bilirubin (0.2-1) mg/dl AST (15-37) U/L ALT (12-78) U/L Alkaline Phosphatase (45-117) U/L Troponin I (0-0.045) ng/ml Total Protein (6.4-8.2) gm/dl Albumin (3.4-5.0) gm/dl Globulin (2.5-4.0) gm/dl Albumin/Globulin Ratio (0.9-2) Triglycerides (0-150) mg/dl Cholesterol (0-200) mg/dl LDL Cholesterol, Calc mg/dl VLDL Cholesterol, Calc mg/dl HDL Cholesterol mg/dl Cholesterol/HDL Ratio Folate (>5.38) ng/ml 09/26/19 09/26/19 09/26/19 Range/Units 02:29 02:29 02:29 WBC 3.00 L (4.8-10.8) K/uL RBC 3.56 L (4.7-6.1) M/uL Hgb 10.6 L (14.0-18.0) g/dL Hct 31.2 L (42-52) % MCV 87.6 (80-100) fL MCH 29.8 (25-34) pg MCHC 34.0 (32-36) g/dL RDW Std Deviation 49.2 H (36.4-46.3) fL RDW Coeff of Mireya 15.3 H (11.5-14.5) % Plt Count 156 (130-400) K/uL MPV 10.2 (7.4-10.4) fL Absolute Nucleated RBC 0.00 (0-0) K/uL Nucleated RBC % (auto) 0.0 % Peripher Smr Path Cons APTT (21.0-31.0) Seconds PTT Ratio Activ Coag Time Kaolin (94-140) SECONDS Sodium (136-145) mmol/L Potassium (3.5-5.1) mmol/L Chloride (98-107) mmol/L Carbon Dioxide (21-32) mmol/L Anion Gap (3-11) BUN (7-18) mg/dl Creatinine (0.6-1.4) mg/dl Est Cr Clr Drug Dosing ml/min Est GFR ( Amer) Est GFR (Non-Af Amer) BUN/Creatinine Ratio (10-20) Glucose (70-99) mg/dl Estimat Average Glucose 120 mg/dl Hemoglobin A1c 5.8 H (4.5-5.6) % Calcium (8.5-10.1) mg/dl Magnesium (1.8-2.4) mg/dl Iron (35-175) mcg/dl TIBC (250-450) mcg/dl Transferrin (200-360) mg/dl Transferrin % Sat (20-50) % Ferritin (8-388) ng/ml Total Bilirubin (0.2-1) mg/dl AST (15-37) U/L ALT (12-78) U/L Alkaline Phosphatase (45-117) U/L Troponin I (0-0.045) ng/ml Total Protein (6.4-8.2) gm/dl Albumin (3.4-5.0) gm/dl Globulin (2.5-4.0) gm/dl Albumin/Globulin Ratio (0.9-2) Triglycerides (0-150) mg/dl Cholesterol (0-200) mg/dl LDL Cholesterol, Calc mg/dl VLDL Cholesterol, Calc mg/dl HDL Cholesterol mg/dl Cholesterol/HDL Ratio Folate 14.48 (>5.38) ng/ml 09/26/19 09/26/19 09/25/19 Range/Units 02:29 01:20 22:47 WBC (4.8-10.8) K/uL RBC (4.7-6.1) M/uL Hgb (14.0-18.0) g/dL Hct (42-52) % MCV (80-100) fL MCH (25-34) pg MCHC (32-36) g/dL RDW Std Deviation (36.4-46.3) fL RDW Coeff of Mireya (11.5-14.5) % Plt Count (130-400) K/uL MPV (7.4-10.4) fL Absolute Nucleated RBC (0-0) K/uL Nucleated RBC % (auto) % Peripher Smr Path Cons APTT 101.1 H* > 139.0 H* (21.0-31.0) Seconds PTT Ratio 3.6 > 5.0 Activ Coag Time Kaolin (94-140) SECONDS Sodium 140 (136-145) mmol/L Potassium 3.8 (3.5-5.1) mmol/L Chloride 113 H (98-107) mmol/L Carbon Dioxide 23 (21-32) mmol/L Anion Gap 4.0 (3-11) BUN 23 H (7-18) mg/dl Creatinine 0.98 (0.6-1.4) mg/dl Est Cr Clr Drug Dosing 55.3 ml/min Est GFR ( Amer) 83.5 Est GFR (Non-Af Amer) 72.0 BUN/Creatinine Ratio 23.3 H (10-20) Glucose 93 (70-99) mg/dl Estimat Average Glucose mg/dl Hemoglobin A1c (4.5-5.6) % Calcium 8.6 (8.5-10.1) mg/dl Magnesium 1.9 (1.8-2.4) mg/dl Iron 58 (35-175) mcg/dl TIBC 236 L (250-450) mcg/dl Transferrin 185 L (200-360) mg/dl Transferrin % Sat 22 (20-50) % Ferritin 102.3 (8-388) ng/ml Total Bilirubin 0.3 (0.2-1) mg/dl AST 31 (15-37) U/L ALT 25 (12-78) U/L Alkaline Phosphatase 112 (45-117) U/L Troponin I 1.080 H* (0-0.045) ng/ml Total Protein 6.8 (6.4-8.2) gm/dl Albumin 3.2 L (3.4-5.0) gm/dl Globulin 3.6 (2.5-4.0) gm/dl Albumin/Globulin Ratio 0.9 (0.9-2) Triglycerides 50 (0-150) mg/dl Cholesterol 144 (0-200) mg/dl LDL Cholesterol, Calc 90 mg/dl VLDL Cholesterol, Calc 10 mg/dl HDL Cholesterol 44 mg/dl Cholesterol/HDL Ratio 3 Folate (>5.38) ng/ml 09/25/19 Range/Units 22:47 WBC (4.8-10.8) K/uL RBC (4.7-6.1) M/uL Hgb (14.0-18.0) g/dL Hct (42-52) % MCV (80-100) fL MCH (25-34) pg MCHC (32-36) g/dL RDW Std Deviation (36.4-46.3) fL RDW Coeff of Mireya (11.5-14.5) % Plt Count (130-400) K/uL MPV (7.4-10.4) fL Absolute Nucleated RBC (0-0) K/uL Nucleated RBC % (auto) % Peripher Smr Path Cons APTT (21.0-31.0) Seconds PTT Ratio Activ Coag Time Kaolin (94-140) SECONDS Sodium (136-145) mmol/L Potassium (3.5-5.1) mmol/L Chloride (98-107) mmol/L Carbon Dioxide (21-32) mmol/L Anion Gap (3-11) BUN (7-18) mg/dl Creatinine (0.6-1.4) mg/dl Est Cr Clr Drug Dosing ml/min Est GFR ( Amer) Est GFR (Non-Af Amer) BUN/Creatinine Ratio (10-20) Glucose (70-99) mg/dl Estimat Average Glucose mg/dl Hemoglobin A1c (4.5-5.6) % Calcium (8.5-10.1) mg/dl Magnesium (1.8-2.4) mg/dl Iron (35-175) mcg/dl TIBC (250-450) mcg/dl Transferrin (200-360) mg/dl Transferrin % Sat (20-50) % Ferritin (8-388) ng/ml Total Bilirubin (0.2-1) mg/dl AST (15-37) U/L ALT (12-78) U/L Alkaline Phosphatase (45-117) U/L Troponin I 1.010 H* (0-0.045) ng/ml Total Protein (6.4-8.2) gm/dl Albumin (3.4-5.0) gm/dl Globulin (2.5-4.0) gm/dl Albumin/Globulin Ratio (0.9-2) Triglycerides (0-150) mg/dl Cholesterol (0-200) mg/dl LDL Cholesterol, Calc mg/dl VLDL Cholesterol, Calc mg/dl HDL Cholesterol mg/dl Cholesterol/HDL Ratio Folate (>5.38) ng/ml PG Care Time/CCT Total # of Minutes Spent Total Time Spent with Patient: Total time spent is greater than 50% in coordination of care (as documented) at patient's floor/unit and/or counseling patient: Coding Level of Care Code 27796 Subseq Hosp Care Lvl 3 Diagnoses NSTEMI (non-ST elevated myocardial infarction) I21.4 Labile hypertension R09.89 B12 deficiency E53.8 Anemia D64.9 Sjogrens syndrome M35.00 Rheumatoid arthritis M06.9 Rosacea L71.9 DVT prophylaxis Z29.9
--- NOTE | 2019-09-26 15:20 | Cardiac Catheterization ---
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 Cardiac Status Clinical evaluation leading to the procedure CAD Presenation: Non STEMI Anginal Classification: CCS IV Heart Failure: No Cardiogenic Shock within 24 Hours: No Cardiac Arrest within 24 Hours: No Imaging Studies Past 6 Months: Yes Stress Studies Past 6 Months: No Diagnostic Physicians Name: Santi Nguyen MD Status: Elective Closure Device Percutaneous Entry Location: Radial Closure Device: Radial Band Recommendations: PCI without planned CABG PCI Indication: PCI for high risk Non-MAIKEL Lesion Segment Name: distal RCA Culprit Artery: Yes Stenosis Prior to Rx (%): 99 Chronic Total Occlusion: No IVUS: No Pre-Procedure LINA Flow: 3 Previously Treated Lesion: No Lesion Complexity: Non-High/Non-C Lesion Length (mm): 15 Thrombus Present: Yes Bifurcation Lesion: No Guidewire Across Lesion: Stenosis Post-Procedure (%): 0 Post-Procedure LINA Flow: 3 Devices(s) Deployed: Yes Yes Lesion #2 Segment Name: mid circumflex Culprit Artery: Yes Stenosis Prior to Rx (%): 90 Chronic Total Occlusion: No IVUS: No FFR: No Pre-Procedure LINA Flow: 3 Previously Treated Lesion: No Lesion Complexity: Non-High/Non-C Lesion Length (mm): 15 Thrombus Present: Yes Bifurcation Lesion: Yes Guidewire Across Lesion: Yes Stenosis Post-Procedure (%): 0 Post-Procedure LINA Flow: 3 Devices(s) Deployed: Yes Intraprocedure Events Significant Disection: No Perforation: No Cardiac Cath Procedure Full Procedure Date September 26, 2019 Pre-Procedure Diagnosis Pre-Procedure Diagnosis: Non STEMI AUC Score AUC Score: 8 Post-Procedure Diagnosis Post-Procedure Diagnosis: Severe CAD and Successful PCI Procedure(s) Performed Procedure(s) Performed: Coronary Angiography, Left Heart Cath and Drug Eluting Stent Observer Gravity Prospecting Santi Nguyen MD Canvas Baster(s) Jesus Estimated Blood Loss Estimated Blood Loss: 10 Medication(s) Medication(s): Heparin, Lidocaine 1%, Nicardipine, Nitroglycerin and Versed Medication(s): Ticagrelor Summary of Findings Indication: NSTEMI Access: 6 Fr slender right radial artery Catheters: [place], JR4 guide, EBU 3.5 guide Findings: LM -large caliber, 20% distal disease LAD -medium caliber vessel, proximal luminal irregularities, sequential mid segment lesions up to 80 to 90%, small distal LAD with 80% disease Circumflex -large caliber, proximal luminal irregularities, 90+% mid stenosis after takeoff of medium caliber OM 2. Distal circumflex/left PLB with luminal irregularities RCA -dominant, large caliber, proximal/mid luminal irregularities, 95+% acute distal LAD stenosis. Right PDA with luminal irregularities LVEDP -13 -- PCI of RCA-- Antithrombotic therapy: Heparin, ticagrelor Procedure: RCA cannulated with JR4 guide Manager Drug Safety 50 wire passed across lesion into distal vessel Distal RCA lesion predilated with 2.5 compliant balloon Dilated lesion stented with 3.5 x 18 mm will drug-eluting Stent post-dilated with 3.5 noncompliant balloon IC vasodilators administered for spasm Post procedure LINA 3 flow, stent well expanded with minimal residual stenosis and no apparent cardiac complications. PCI of mid circumflex Left main cannulated with EBU 3.5 guide Manager Drug Safety 50 wire passed across lesion into distal vessel Mid circumflex predilated with 2.5 compliant balloon Dilated mid circumflex stented with 2.75 x 18 mm Will drug-eluting stent Stent postdilated with 3.0 noncompliant balloon IC vasodilators administered for spasm Post procedure LINA 3 flow, stent well expanded with minimal residual stenosis and no apparent cardiac complications. Arterial Closure: TR band Summary: 1. Severe multivessel coronary artery disease - 95+% acute distal RCA (likely culprit). 90+% mid circumflex 80 to 90% sequential lesions in mid and distal LAD 2. Normal intracardiac filling pressure 3. Successful PCI of distal RCA with single drug-eluting stent (3.5 x 18 mm Will). 4. Successful PCI of mid circumflex with single drug-eluting stent (2.75 x 18 mm Will). Recommendations: To PCU for continued monitoring Loaded with ticagrelor 180 mg in cath Continue dual-antiplatelet therapy for at least 1 year Continue statin, and ASCVD risk factor modification Plan for staged PCI of mid, distal LAD during hospitalization, likely tomorrow pending stable renal function. Hemodynamics Rest Ao:: 121/63/88 Final Ao: 128/65/94 LV: 138/13 Recommendations Recommendations: PCI without planned CABG Specimens Specimens: None Radiation Exposure (mGy) 2672 Contrast (mls) 200 Fluids (cc crystalloids) Fluids (cc crystalloids): 200 Drains Drains: none Anesthesia moderate Procedural Complication(s) None Disposition PCU I attest to the content of the Intraoperative Record and any orders documented therein. Any exceptions are noted below. [facility] Card Cath Procedure Codes Cardiac Catheterization Procedure 1: Cardiovascular Cath Procedures: 97038 Coronaries and LHC (+/-LV) Moderate Sedation Procedure 1: Sedation/Anesthesia: 18443 Mod Sedation by the same physician;Init15 Min Child Age 5 & Up Procedure 2: Sedation/Anesthesia: 73789 Mod Sedation by the same physician; Ea [id number] Minutes Stenting Procedure 1: Cardiovascular Stent Procedures: 60382 Ea addl branch of a major coronary artery PG Care Time/CCT Total # of Minutes Spent Total Time Spent with Patient: Total time spent is greater than 50% in coordination of care (as documented) at patient's floor/unit and/or counseling patient:
[2019-09-26] MEDS: TICAGRELOR 90 MG TAB PO SCH (21:12)
[2019-09-27 06:59] LABS: Hematocrit (blood only) 30.4 % (42-52); Hemoglobin 10.3 g/dL (14.0-18.0); Mean Corpuscular Hemoglobin 30.1 pg (25-34); Mean Corpuscular Hgb Conc 33.9 g/dL (32-36); Mean Corpuscular Volume 88.9 fL (80-100); Platelet Count 152 K/uL (130-400); RDW Coefficient of Variation 15.4 % (11.5-14.5); Red Blood Count 3.42 M/uL (4.7-6.1); White Blood Count 4.79 K/uL (4.8-10.8)
[2019-09-27 07:39] LABS: BUN Creatinine Ratio 18.7 (10-20); Calcium 8.5 mg/dl (8.5-10.1); Creatinine Clr Calc Pharmacy 53.5 ml/min; Est GFR (African American) 80.5; Est GFR (Non-African American) 69.4; Magnesium 1.9 mg/dl (1.8-2.4); Potassium 3.8 mmol/L (3.5-5.1)
[2019-09-27] MEDS: lisinopriL 10 MG TAB PO SCH (08:21)
[2019-09-27] MEDS: PANTOprazole 40 MG TAB PO SCH (08:21)
[2019-09-27] MEDS: ASPIRIN 81 MG ECTAB PO SCH (08:21)
[2019-09-27] MEDS: METOPROLOL TARTRATE 25 MG TAB PO SCH (08:22)
[2019-09-27] MEDS: TICAGRELOR 90 MG TAB PO SCH ×2 (08:22→20:17)
[2019-09-27] MEDS: ATORVASTATIN 40 MG TAB PO SCH (08:22)
[2019-09-27] MEDS: CYANOCOBALAMIN 1000 MCG/ML VIAL IM SCH (08:22)
[2019-09-27] MEDS ORDERED: METOPROLOL TARTRATE 25 MG TAB PO STA (10:17)
--- NOTE | 2019-09-27 10:18 | Hospitalist Progress Note ---
Date of Service September 27, 2019 Assessment & Plan (1) NSTEMI (non-ST elevated myocardial infarction): -patient presented with unstable angina and NSTEMI with positive troponin =0.629/1.01/1.08, EKG was reviewed without any ST or T wave changes/signs of ischemia -Was placed on heparin drip, aspirin, metoprolol, statin -Now status post cardiac catheterization on 09/25 with severe multivessel disease found: - 95+% acute distal RCA (likely culprit). 90+% mid circumflex 80 to 90% sequential lesions in mid and distal LAD Normal intracardiac filling pressure Successful PCI of distal RCA with single drug-eluting stent (3.5 x 18 mm Merna). Successful PCI of mid circumflex with single drug-eluting stent (2.75 x 18 mm Karan). -Loaded with ticagrelor 180 mg in cath -Continue dual-antiplatelet therapy for at least 1 year w/ ASA, Brilinta -Continue statin which was started here, and ASCVD risk factor modification-LDL 90, HDL 44 -Plan for staged PCI of mid, distal LAD during hospitalization, later today -Echo with preserved EF, mild base to mid inferior, inferoseptal hypokinesis -Continue BP control with lisinopril -Started on metoprolol tartrate 25 BID -HgbA1C 5.8%-prediabetes-see below -Appreciate Cardiology management (2) CAD (coronary artery disease), [place] coronary artery: severe, multivessel -titrate up metoprolol to 50mg po bid today -started statin -continue lisinopril -for repeat cath with LAD stent planned today (3) Labile hypertension: BPs remain elevated -Continue lisinopril 10 mg daily -increase metoprolol to 50 mg p.o. twice daily -follow (4) B12 deficiency: -Patient has seen PCP about this in the past, and instructed to take supplementation however he has not started to do so yet. Likely contributing to anemia. B12 level very low -Started B12 1000 mcg IM daily x3 days while here -Check peripheral smear as also has leukopenia-suggestive of multiple possibilities including nutritional deficiency vs "normal" for patient vs MDS but also Fe-def features Iron studies within normal limits or more of a chronic disease picture -follow as outpt keep hgb>10 while actively having NSTEMI (5) Anemia: -Hemoglobin of 10.3 as above -Appears his baseline has been between 11 and 12 in the past year, likely worse as patient is not taking B12 supplementation, no signs of bleeding. This p ossibly adding to some demand ischemia and playing a role in ACS as above. -see above for workup (6) Sjogrens syndrome: -History of such (7) Rheumatoid arthritis: -Noted, stable, not on long-term steroids or immune modulating agents (8) Rosacea: -Noted, stable (9) Prediabetes: HgbA1C 5.8% -needs diet control (10) DVT prophylaxis: -Heparin drip now off SCDs ASA/Brilinta CODE STATUS: Full Code Disposition: continued stay for after cath Admission and Anticipated Discharge Date Admission Date: September 25, 2019 Anticipated date of discharge: 09/28/19 Subjective Pt seen prior to repeat cardiac cath today and reports he had one episode over night of chest pain lasting 5 min while lying down that went away when he sat up. Denies SOB, no headache or lightheadedness, no abd pain, no other concerns. Tele with NSR, rates 60-80s Review of Systems Review of Systems: All systems reviewed & are unremarkable except as noted in HPI & below Physical Exam Constitutional: WD/WN, vitals as above Eyes: + anicteric sclerae Neck: trachea midline, no thyromegaly Respiratory: normal respiratory effort, lungs clear to auscultation Cardiovascular: RRR, no murmur, no edema Chest (Breasts): Chest: normal inspection of chest Gastrointestinal (Abdomen): normal bowel sounds, soft, nontender, no hepatosplenomegaly Musculoskeletal: Extremities: extremities normal to inspection; no cyanosis and no clubbing Skin: no rashes, warm and dry Neurologic: moves all extremities and awake; no focal motor deficits Psychiatric: A+Ox3, euthymic affect Lymphatic: no lymphedema Results & Data Results & Data ([facility]) Vital Signs (Past 12 Hours) Vital Signs Temp Pulse Pulse Resp BP Pulse Ox 09/27/19 08:16 37.0 C 82 20 149/77 H 96 09/27/19 07:44 72 09/27/19 04:03 37.1 C 86 20 129/76 96 09/26/19 23:34 36.7 C 72 18 129/70 97 Laboratory Results labs reviewed PG Care Time/CCT Total # of Minutes Spent Total Time Spent with Patient: Total time spent is greater than 50% in coordination of care (as documented) at patient's floor/unit and/or counseling patient: Coding Level of Care Code 76109 Subseq Hosp Care Lvl 3 Diagnoses NSTEMI (non-ST elevated myocardial infarction) I21.4 CAD (coronary artery disease), [place] coronary artery I25.10 Labile hypertension R09.89 B12 deficiency E53.8 Anemia D64.9 Sjogrens syndrome M35.00 Rheumatoid arthritis M06.9 Rosacea L71.9 Prediabetes R73.03 DVT prophylaxis Z29.9
[2019-09-27] MEDS ORDERED: MIDAZOLAM HCL 1 MG/ML 2ML VIAL ONE (11:39)
[2019-09-27] MEDS ORDERED: HEPARIN (PORCINE) 1000 UNIT/ML 10 ML (CATH LAB USE ONLY) ONE (11:39)
[2019-09-27] MEDS ORDERED: fentaNYL citrate 100 MCG/2 ML VIAL ONE (11:39)
[2019-09-27] MEDS ORDERED: NiCARDipine HCL INJ 2.5 MG/ML 10 ML AMP ONE (11:39)
[2019-09-27] MEDS ORDERED: NITROGLYCERIN/D5W 100MCG/ML 20ML SYR ONE (11:40)
--- NOTE | 2019-09-27 12:13 | Pre Anesthesia Assessment ---
Date of Service September 27, 2019 Pre Sedation Assessment Vital Signs Temp Pulse Pulse Resp BP Pulse Ox 09/27/19 08:16 98.6 F 82 20 149/77 H 96 09/27/19 07:44 72 09/27/19 04:03 98.8 F 86 20 129/76 96 09/26/19 23:34 98.1 F 72 18 129/70 97 09/26/19 19:16 97.7 F 75 19 155/70 H 98 09/26/19 16:47 97.9 F 62 20 119/67 98 09/26/19 15:46 97.9 F 61 20 139/66 98 09/26/19 15:19 59 L 09/26/19 13:47 97.9 F 58 L 16 130/69 98 09/26/19 13:17 97.5 F L 74 16 132/77 98 09/26/19 12:47 97.9 F 73 18 133/83 97 09/26/19 12:32 97.9 F 68 16 149/86 H 96 09/26/19 12:17 97.5 F L 70 16 133/77 97 Cardiovascular RRR, no murmur, no edema Respiratory normal respiratory effort, lungs clear to auscultation Pre-Sedation Airway Assessment Smoking Status: Never smoker Hx Sleep Apnea: No Hx Difficult Intubation: No Short, Thick Neck: No Thyromental Distance: > or= 3.5 Finger Breadths Oral Cavity: + WNL Mallampati Class: III ASA: ASA3 Procedure Planning Contraindications for Sedation: none Current Medications Reviewed: Yes Notes The planned sedation has been discussed with the patient. Informed Consent was obtained. I have identified the patient, determined the appropriateness of sedation and have assessed the patient immediately prior to the procedure. All medicine(s) and interventions are by my order.
[2019-09-27] MEDS ORDERED: SODIUM CHLORIDE 0.9% 1000ML 1,000 ML IV SCH (13:15)
--- NOTE | 2019-09-27 13:21 | Post Anesthesia Assessment ---
Date of Service September 27, 2019 Post Sedation Assessment Vital Signs Temp Pulse Pulse Resp BP Pulse Ox 09/27/19 08:16 98.6 F 82 20 149/77 H 96 09/27/19 07:44 72 09/27/19 04:03 98.8 F 86 20 129/76 96 09/26/19 23:34 98.1 F 72 18 129/70 97 09/26/19 19:16 97.7 F 75 19 155/70 H 98 09/26/19 16:47 97.9 F 62 20 119/67 98 09/26/19 15:46 97.9 F 61 20 139/66 98 09/26/19 15:19 59 L 09/26/19 13:47 97.9 F 58 L 16 130/69 98 Recovery Score Activity: Moves 4 extremities Respiration: Deep Breath/Cough Circulation: +/-20% PreAnes Value Consciousness: Fully Awake Oxygen Saturation: O2 needed for >90% Discharge Sedation Level of Care: Fast Track Phase II Post Sedation Plan On clinical assessment, the patient appears to have tolerated the sedation without complications. Patient is recovering as anticipated. Patient will continue to be monitored by nursing and may be discharged when sedation discharge criteria are met per below protocol. Upon Completions of procedure up to 15 minutes continue every 5 minute vital signs and the P.A.R. score; then discharge to a Phase I or Fast Track to Phase II per the following guidelines: * Discharge Patient to appropriate Phase II area if PAR is 8 or greater or return to pre- procedure baseline. The post - procedure orders will be as directed. * If PAR score is less than 8 or not return to pre-procedure baseline then patient will follow Phase I monitoring till PAR is reached for Phase II. The Phase I may be done in procedure room or may call to secure a Phase I area. * If naloxone or flumazenil are used for reversal, hold in Phase I for continued monitoring from when last reversal dose was given for a minimum of 60 minutes or longer pending the nurse and/or physician discretion of patient condition before discharge to Phase II. Please call the Sedation Physician to re-evaluate and complete post-note for discharge to Phase II area. Do NOT discharge from procedure sedation or Phase 1 until post- sedation evaluation note is complete by procedure /sedation MD Sedation Discharge Instructions to be given to the patient at discharge to home.
--- NOTE | 2019-09-27 15:41 | Electrocardiogram Report ---
Test Reason : Blood Pressure : / mmHG Vent. Rate : 071 BPM Atrial Rate : 071 BPM P-R Int : 168 ms QRS Dur : 092 ms QT Int : 390 ms P-R-T Axes : 060 -24 047 degrees QTc Int : 423 ms Sinus rhythm with Premature atrial complexes in a pattern of bigeminy Otherwise normal ECG When compared with ECG of 27-SEP-2019 00:11, (unconfirmed) Premature atrial complexes are now Present Confirmed by Kevin Arzola ([id number]) on 09/27/2019 3:41:04 PM Referred By: REFERRED SELF Confirmed By:Kevin Arzola
--- NOTE | 2019-09-27 15:55 | Electrocardiogram Report ---
Test Reason : Blood Pressure : / mmHG Vent. Rate : 066 BPM Atrial Rate : 066 BPM P-R Int : 172 ms QRS Dur : 090 ms QT Int : 422 ms P-R-T Axes : 050 -34 017 degrees QTc Int : 442 ms Normal sinus rhythm Left axis deviation Abnormal ECG When compared with ECG of 27-SEP-2019 00:11, (unconfirmed) Premature atrial complexes are no longer Present Nonspecific T wave abnormality no longer evident in Lateral leads Confirmed by Kevin Arzola ([id number]) on 09/27/2019 3:54:52 PM Referred By: REFERRED SELF Confirmed By:Kevin Arzola
--- NOTE | 2019-09-27 16:02 | Cardiac Catheterization ---
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 Clinical evaluation leading to the procedure CAD Presenation: Non STEMI Anginal Classification: CCS IV Heart Failure: No Cardiogenic Shock within 24 Hours: No Cardiac Arrest within 24 Hours: No Imaging Studies Past 6 Months: Yes Stress Studies Past 6 Months: No Diagnostic Physicians Name: Santi Nguyen MD Status: Elective Closure Device Percutaneous Entry Location: Radial Closure Device: Radial Band Recommendations: PCI without planned CABG PCI Indication: Staged PCI Lesion Segment Name: mid LAD Culprit Artery: No Stenosis Prior to Rx (%): 80 Chronic Total Occlusion: No IVUS: No FFR: No Pre-Procedure LINA Flow: 3 Previously Treated Lesion: No Lesion Complexity: Non-High/Non-C Lesion Length (mm): 25 Thrombus Present: No Bifurcation Lesion: Yes Guidewire Across Lesion: Stenosis Post-Procedure (%): 0 Post-Procedure LINA Flow: 3 Devices(s) Deployed: Yes Yes Lesion #2 Segment Name: distal LAD Culprit Artery: No Stenosis Prior to Rx (%): 90 Chronic Total Occlusion: No IVUS: No FFR: No Pre-Procedure LINA Flow: 3 Previously Treated Lesion: No Lesion Complexity: Non-High/Non-C Lesion Length (mm): 20 Thrombus Present: No Bifurcation Lesion: No Guidewire Across Lesion: Yes Stenosis Post-Procedure (%): 30-40 Post-Procedure LINA Flow: 3 Devices(s) Deployed: No Intraprocedure Events Significant Disection: No Perforation: No Cardiac Cath Procedure Full Procedure Date September 27, 2019 Pre-Procedure Diagnosis Pre-Procedure Diagnosis: Non STEMI AUC Score AUC Score: 8 Post-Procedure Diagnosis Post-Procedure Diagnosis: Severe CAD and Successful PCI Procedure(s) Performed Procedure(s) Performed: Coronary Angiography and Drug Eluting Stent Permit Specialist Santi Nguyen MD Cardiovascular Lab Director(s) Camilo Estimated Blood Loss Estimated Blood Loss: 15 Medication(s) Medication(s): Heparin, Lidocaine 1%, Nicardipine, Nitroglycerin and Versed Medication(s): Ticagrelor Summary of Findings Indication: Staged PCI of mid LAD Access: 6Fr slender right radial artery Catheters: EBU 3.5 guide, Telescope Findings: For full details of patients coronary angiography please see cath report from 09/26/2019. Briefly patient found to have multivessel disease and is post PCI with SUSANA to distal RCA and mid circumflex. Returned today for staged PCI of mid and severe sequestional LAD lesions. -- PCI -- Antithrombotic therapy: Heparin, Ticagrelor Procedure: Left main cannulated with EBU 3.5 guide Speech And Language Specialist 50 wire passed across lesion into distal vessel Mid LAD lesion predilated with 2.0 compliant balloon Dilated lesion stented with 2.5 x 30 mm [place] SUSANA Stent post-dilated with 2.5 NC balloon. IC vasodilators administered for spasm Residual severe disease in distal segment Distal LAD residual lesion dilated with 2.0 balloon with <50% residual stenosis Post procedure LINA 3 flow, stent well expanded and no apparent cardiac complications. Arterial Closure: TR Band Summary: 1. Successful PCI of mid LAD with single drug-eluting stent (2.5 x 30 mm Karan). - Successful angioplasty of small distal LAD with 2.0 balloon. Recommendations: To PCU for continued monitoring Continue dual-antiplatelet therapy for at least 1 year, consider extended DAPT in the setting of multivessel disease. Continue statin, and ASCVD risk factor modification Cardiac Rehab Hemodynamics Rest Ao:: 124/58/90 Final Ao: 140/63/96 LV: -- Recommendations Recommendations: PCI without planned CABG Specimens Specimens: None Radiation Exposure (mGy) 1461 Contrast (mls) 130 Fluids (cc crystalloids) Fluids (cc crystalloids): 100 Drains Drains: none Anesthesia moderate Procedural Complication(s) None Disposition PCU I attest to the content of the Intraoperative Record and any orders documented therein. Any exceptions are noted below. [facility] Card Cath Procedure Codes Moderate Sedation Procedure 1: Sedation/Anesthesia: 78958 Mod Sedation by the same physician;Init15 Min Child Age 5 & Up Procedure 2: Sedation/Anesthesia: 53586 Mod Sedation by the same physician; Ea [id number] Minutes Stenting Procedure 1: Cardiovascular Stent Procedures: 68548 Perc transcatheter placement of intracoronary stent(s), with ang PG Care Time/CCT Total # of Minutes Spent Total Time Spent with Patient: Total time spent is greater than 50% in coordination of care (as documented) at patient's floor/unit and/or counseling patient:
[2019-09-27] MEDS: METOPROLOL TARTRATE 50 MG TAB PO SCH (20:18)
[2019-09-28 07:01] LABS: Hematocrit (blood only) 30.8 % (42-52); Hemoglobin 10.5 g/dL (14.0-18.0); Mean Corpuscular Hemoglobin 30.3 pg (25-34); Mean Corpuscular Hgb Conc 34.1 g/dL (32-36); Mean Corpuscular Volume 88.8 fL (80-100); Mean Platelet Volume 9.9 fL (7.4-10.4); Platelet Count 152 K/uL (130-400); RDW Coefficient of Variation 15.2 % (11.5-14.5); RDW Standard Deviation 49.4 fL (36.4-46.3); Red Blood Count 3.47 M/uL (4.7-6.1); White Blood Count 4.46 K/uL (4.8-10.8)
[2019-09-28 07:26] LABS: BUN Creatinine Ratio 22.3 (10-20); Calcium 8.9 mg/dl (8.5-10.1); Creatinine Clr Calc Pharmacy 53.5 ml/min; Est GFR (African American) 80.5; Est GFR (Non-African American) 69.4; Magnesium 1.9 mg/dl (1.8-2.4); Potassium 3.8 mmol/L (3.5-5.1)
[2019-09-28] MEDS: METOPROLOL TARTRATE 50 MG TAB PO SCH (08:08)
[2019-09-28] MEDS: TICAGRELOR 90 MG TAB PO SCH (08:08)
[2019-09-28] MEDS: ATORVASTATIN 40 MG TAB PO SCH (08:09)
[2019-09-28] MEDS: lisinopriL 10 MG TAB PO SCH (08:09)
[2019-09-28] MEDS: PANTOprazole 40 MG TAB PO SCH (08:09)
[2019-09-28] MEDS: ASPIRIN 81 MG ECTAB PO SCH (08:09)
[2019-09-28] MEDS: CYANOCOBALAMIN 1000 MCG/ML VIAL IM SCH (08:10)
--- NOTE | 2019-09-28 11:07 | Discharge Summary ---
Date of Service September 28, 2019 Admission HPI Per Admitting Provider This is an 79-year-old male with past medical history of HTN, Sjogren's syndrome, B12 deficiency, anemia, RA, rosacea, history of Lyme disease last summer and GERD, who presents with intermittent chest pain which began 3 days ago. Patient reports that he developed substernal and left-sided chest pain with exertion while walking up a hill on a hike in [place] this past weekend. He rated his pain a 6/10 at maximum. Pain radiates to both shoulders, does not radiate into the back or up into the jaw. Denies subsequent lightheadedness or dizziness. He admits to shortness of breath during each episode of chest pain. 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 He admits to similar pain in the middle of the night the past 2 nights, each time pain starts after he has has gotten up to urinate in the middle the night, taken some Tylenol which aids in the resolvent of his pain, and was able to fall back to sleep. He has used Tylenol for pain during other events which have occurred in the middle of the day and it has alleviated the majority of his pain. During my exam at bedside he is currently pain-free. He has never had any cardiac events in his past, and reports his blood pressure has been well controlled sitting around 135 and 140 systolically with using lisinopril 10 mg daily. He admits to occasionally not remembering to take his medication. The patient lives at home with his who brought him to the ER today. Troponin was found to be elevated at 0.629, EKG was reviewed without any ST wave inversions or signs of ischemia. He was started on a heparin drip. Principal Diagnosis NSTEMI, Severe CAD Discharge Exam Constitutional WD/WN, vitals as above Eyes + anicteric sclerae ENMT external ear and nose normal, oropharynx normal Neck trachea midline, no thyromegaly Respiratory normal respiratory effort, lungs clear to auscultation Cardiovascular RRR, no murmur, no edema Chest (Breasts) Chest: normal inspection of chest Gastrointestinal (Abdomen) normal bowel sounds, soft, nontender, no hepatosplenomegaly Musculoskeletal Extremities: extremities normal to inspection; no cyanosis and no clubbing Skin no rashes, warm and dry Neurologic moves all extremities and awake; no focal motor deficits Psychiatric A+Ox3, euthymic affect Lymphatic no lymphedema Discharge Data Allergies Allergy/AdvReac Type Severity Reaction Status Date / Time doxycycline Allergy Severe Rash Verified 09/25/19 17:03 Consultations 09/25/19 17:28 ED Decision to Admit Stat 09/25/19 19:28 Consult Cardiology Routine Consult Case Management - Discharge Planning Routine Procedures Performed Operation Date: 09/26/19 10:30 Actual Procedures s Cineradiography w/Routine Exam - Guy Nguyen MD p Drug Eluting Stent SGl Vessel - Guy Nguyen MD s Drug Eluting Stent each ADDTL Vessel - Guy Nguyen MD p Cath, Left with Cors and Vent - Guy Nguyen MD Operation Date: 09/27/19 12:00 Actual Procedures s Drug Eluting Stent SGl Vessel - Guy Nguyen MD p Cath, Left with Cors and Vent - Guy Nguyen MD s Cineradiography w/Routine Exam - Guy Nguyen MD Ordered Studies 09/26/19 09:59 CL Cath Imgs for PACS use only Routine 09/27/19 11:52 CL Cath Imgs for PACS use only Stat CXR ECHO Hospital Course (1) NSTEMI (non-ST elevated myocardial infarction): -patient presented with unstable angina and NSTEMI with positive troponin =0.629/1.01/1.08, EKG was reviewed without any ST or T wave changes/signs of ischemia -Was placed on heparin drip, aspirin, metoprolol, statin -Now status post cardiac catheterization on 09/25 with severe multivessel disease found: - 95+% acute distal RCA (likely culprit). 90+% mid circumflex 80 to 90% sequential lesions in mid and distal LAD Normal intracardiac filling pressure Successful PCI of distal RCA with single drug-eluting stent (3.5 x 18 mm [place]). Successful PCI of mid circumflex with single drug-eluting stent (2.75 x 18 mm [place]). Went back to denture laboratory technician and had another SUSANA placed in mid LAD with balloon angioplasty of lesion in distal LAD the next day -Continue dual-antiplatelet therapy for at least 1 year w/ ASA, Brilinta -Continue atorvastatin 40mg daily which was started here, and ASCVD risk factor modification-LDL 90, HDL 44 -Echo with preserved EF, mild base to mid inferior, inferoseptal hypokinesis -Continue BP control with lisinopril -Started on metoprolol tartrate 50mg po BID -HgbA1C 5.8%-prediabetes-see below -Appreciate Cardiology management-f/u as outpt after discharge (2) CAD (coronary artery disease), [place] coronary artery: severe, multivessel -started metoprolol 50mg po bid -started statin, ASA, Brilinta -continue lisinopril -now s/p 3 stents as above (3) Labile hypertension: BPs remain elevated but improved with increasing metoprolol dose here -Continue lisinopril 10 mg daily and can increase further as outpt as needed (4) B12 deficiency: -Patient has seen PCP about this in the past, and instructed to take supplementation however he has not started to do so yet. Likely contributing to anemia. B12 level very low -gave B12 1000 mcg IM daily x3 days while here -Checked peripheral smear as also has leukopenia-suggestive of multiple possibilities including nutritional deficiency vs "normal" for patient vs MDS but also Fe-def features Iron studies within normal limits or more of a chronic disease picture -follow as outpt -continue B12 1000mcg po once daily after dc (5) Anemia: -Hemoglobin of 10.3 as above -Appears his baseline has been between 11 and 12 in the past year, likely worse as patient is not taking B12 supplementation, no signs of bleeding. -see above for workup (6) Sjogrens syndrome: -History of such (7) Rheumatoid arthritis: -Noted, stable, not on long-term steroids or immune modulating agents (8) Rosacea: -Noted, stable (9) Prediabetes: HgbA1C 5.8% -needs diet control and outpt f/u (10) DVT prophylaxis: -Heparin drip now off SCDs ASA/Brilinta CODE STATUS: Full Code Disposition: stable for dc to home Will need cardiac rehab eventually Total Time Total Time Spent Total Time Spent (In Minutes): 40 min Total Time Includes: Examination of the Patient, Discharge Planning, Medication Reconciliation and Communication With Other Providers (Cardiology) Discharge Plan Discharge Items Patient Disposition: Home - Self-Care Reason For Visit: CHEST PAIN Discharge Diagnosis: NSTEMI Severe CAD Condition on Discharge: Good Activity: As commented below Driving/Machine Use: Resume 3 days after discharge Non-emergency contact: Primary Care Provider and Automotive Paint Technician Call non-emergency contact if: you have any medication questions, your symptoms worsen, your pain is not controlled, your pain is worsening, your pain is unusual for you, your pain is concerning for you, you have a fever, your temperature is above 101, your wound has increased redness, your wound has i ncreased drainage and your wound pain has increased Follow-up/Referrals: Guy Nguyen MD [Physician] - (Dr. Nguyen' office will contact you to arrange a follow up visit. ) Maria D Jimenez MD [Primary Care Provider] - (Please call for a follow up appointment within 2 weeks.) Diet: Heart Healthy Addtl Attending Provider Instructions: You were admitted for a heart attack and had 3 stents placed in your heart to open up blockages in the blood vessels. You were started on some very important medications to help keep your heart healthy. Please follow the medication list and take the medications exactly as prescribed. Addtl Plant Anatomist Provider Instructions: ACTIVITY RECOMMENDATIONS: Excess manipulation of the wrist should be avoided for the next 24-48 hours. * No lifting over 2 pounds (approximately a 1/2 gallon of milk) with the utilized arm for 24 hours. * No strenuous activity such as bowling or tennis for 3 days. * Keep the site of the procedure covered with a bandage for 24 hours. *You may shower the day after the procedure. Do not take a tub bath or submerge the puncture site in water for the next 3 days. *Do not operate any motorized equipment for 3 days. SPECIAL CARE INSTRUCTIONS: The site may be slightly bruised and sore following your procedure. Should any of the following occur, contact the Dr. who performed your procedure. 1. Redness/inflammation, swelling, chills, or fever, or colored drainage at procedure site within 3-7 days after your procedure. 2. Coldness, discoloration, ongoing numbness, severe pain, or swelling. Expect mild tingling of hand and tenderness at the puncture site for up to three days. If this persists beyond three days, or other symptoms develop, notify the DrGayle who performed your procedure. BLEEDING: If the procedure site on your wrist begins to bleed, do not panic 1. Place 1 or 2 fingers firmly just slightly above the insertion site to stop the bleeding. You may be able to feel your pulse as you hold pressure. 2. Lift your finger after 5 minutes to see if the bleeding has stopped. 3. Once the bleeding has stopped, gently wipe the wrist area clean with a bandage. * If the bleeding from your wrist does not stop after 10 minutes, or if there is a large amount of bleeding or spurting, call 911 (do not drive yourself to the hospital). SKIN IRRITATION: * You may experience some redness and/or swelling in the area where radiation was administered. If any skin irritation occurs, please contact your family physician. FOLLOW UP VISIT: Keep any scheduled doctor appointments. Home Care: * Take your medications exactly as directed. Don't skip doses. * Remember that recovery after a heart attack takes time. Plan to rest for at lease 4-8 weeks while you recover. Then return to normal activity when your doctor says it's okay. * Ask your doctor about joining a heart rehabilitation program. * Tell your doctor if you are feeling depressed. Feelings of sadness are common after a heart attack, but it is important that you speak to someone if you are feeling overwhelmed by these feelings. * If you are having chest pain, call 911 for an ambulance. Do NOT drive yourself to the hospital. * Ask your family members to learn CPR. * Learn to take your own blood pressure and pulse. Keep a record of your results. Ask your doctor when you should seek emergency medical attention. He or she will tell you which blood pressure reading is dangerous. Lifestyle Changes: * Maintain a healthy weight. Get help to lose any extra pounds. * Cut back on salt. * Limit canned, dried, packaged, and fast foods. * Don't add salt to your food. * Season foods with herbs instead of salt when you cook. * Break the smoking habit. Enroll in a stop-smoking program to improve your chances of success. * Limit fatty foods. * Ask your doctor about having your lipid levels checked regularly. * Build up your activity according to your doctor's recommendation. * Ask your doctor when it's okay to resume sexual activity. * Tell your doctor about any erectile dysfunction (ED) medication you are taking. Some ED medications are not safe if you take certain heart medications. * Try to manage stress. Follow Up: It is important for you to keep your follow up appointments with your medical provider. Pending Studies at Discharge: No Stand-Alone Forms: My [facility] Medications and DC Order Prescriptions: New atorvastatin 40 mg Tablet 40 mg PO QAM Qty: 30 RF: 0 aspirin 81 mg Tablet,Delayed Release (Dr/Ec) 81 mg PO QAM Qty: 30 RF: 0 metoprolol tartrate 50 mg Tablet 50 mg PO BID Qty: 60 RF: 0 Brilinta 90 mg Tablet 90 mg PO BID Qty: 60 RF: 0 cyanocobalamin (vitamin B-12) 1,000 mcg capsule 1,000 mcg PO DAILY Qty: 30 RF: 0 Continued Prilosec OTC 20 mg tablet,delayed release (DR/EC) 20 mg PO QAM Qty: 90 RF: 3 lisinopril 10 mg tablet 10 mg PO DAILY Qty: 90 RF: 3 acetaminophen [Tylenol Extra Strength] 500 mg tablet 1,000 mg PO Q6H PRN (Reason: Pain) RF: 0 Discharge Orders: Discharge Order (Routine); Ordered 09/28/19 Ordered By: Caryn Matamoros Admission Data Admit Date/Time: 09/25/19 18:14 Attending Provider: Caryn Matamoros Admit Provider: Caryn Matamoros Primary Care Provider: Maria D Jimenez Other Providers: Abimael Rao Christophe W. Other Interventions: Discharge Summary Assessment (RN) Last Done: 09/28/19 11:32 DC Date/Time DO NOT enter until pt leaves facility: 09/28/19 13:48 Coding Level of Care Code D/C Day Management >30 mins Diagnoses NSTEMI (non-ST elevated myocardial infarction) I21.4 CAD (coronary artery disease), [place] coronary artery I25.10 Labile hypertension R09.89 B12 deficiency E53.8 Anemia D64.9 Sjogrens syndrome M35.00 Rheumatoid arthritis M06.9 Rosacea L71.9 Prediabetes R73.03 DVT prophylaxis Z29.9
--- NOTE | 2019-09-28 12:31 | Cardiology Progress Note ---
Date of Service September 28, 2019 Assessment & Plan (1) S/P drug eluting coronary stent placement: As per Dr. Nguyen, continual dual antiplatelet therapy for at least 1 year, possibly longer (considering multivessel disease). Continue statin. Enroll in cardiac rehab. Follow-up with Dr. Nguyen, he will have office staff contact patient with mode of follow-up (office visit versus telehealth versus virtual phone check-in). Patient appears well and is appropriate for discharge home. (2) NSTEMI (non-ST elevated myocardial infarction): See above. (3) CAD (coronary artery disease), [place] coronary artery: For full details of coronary anatomy, see cath report of 09/26/2019. (4) Labile hypertension: Continue lisinopril and metoprolol, further adjustment in vasoactive regimen as outpatient. Admission and Anticipated Discharge Date Admission Date: September 25, 2019 Anticipated date of discharge: 09/28/19 Subjective Patient feeling well. No chest pain, dyspnea, palpitations, or other complaints. Uneventful night. Hemodynamics favorable and telemetry monitoring unremarkable. Physical Exam Physical Exam: No distress. Skin: no ecchymoses or generalized lesions. HEENT: unremarkable. Neck: no JVD or carotid bruits. Lungs clear. Cardiac: regular rhythm and no murmur or gallop. Abdomen benign. Extremities: no edema, pulses brisk. Neurologic: normal affect, nonfocal. Results & Data ([facility]) Vital Signs (Past 12 Hours) Vital Signs Temp Pulse Pulse Resp BP Pulse Ox 09/28/19 11:32 97.9 F 83 18 146/79 H 93 09/28/19 11:17 97.5 F L 71 18 108/65 95 09/28/19 08:09 97.9 F 83 18 146/79 H 93 09/28/19 07:30 77 09/28/19 03:58 98.2 F 78 18 149/81 H 97 09/28/19 01:05 98.1 F 66 17 117/60 98 Laboratory Results 09/28/19 09/28/19 06:35 06:35 Hgb 10.5 L BUN 23 H Creatinine 1.01 PG Care Time/CCT Total # of Minutes Spent Total Time Spent with Patient: Total time spent is greater than 50% in coordination of care (as documented) at patient's floor/unit and/or counseling patient: Coding Level of Care Code 38468 Subseq Hosp Care Lvl 2 Diagnoses S/P drug eluting coronary stent placement Z95.5 NSTEMI (non-ST elevated myocardial infarction) I21.4 CAD (coronary artery disease), [place] coronary artery I25.10 Labile hypertension R09.89
== END 2019-09-28 13:48 | disposition home or self-care (01) | DRG 247 ==
LOC: ED 15:42 → 2S 18:14

== ENCOUNTER 2023-04-21 10:08 | Observation (INO) ==
--- NOTE | 2023-03-27 14:18 | PAT Medication Instructions ---
Medication Instructions Date of Service March 27, 2023 Home Medications Medication Instructions Recorded atorvastatin 40 mg tablet See Rx Instructions .Route 09/19/22 .COMPLEX #90 tabs omeprazole magnesium 20 mg 20 mg PO QAM #90 tabs 09/19/22 tablet,delayed release (Prilosec OTC) acetaminophen 500 mg tablet (Tylenol Extra Strength) 1,000 mg PO Q6H PRN Pain ferrous sulfate 325 mg (65 mg iron) tablet 325 mg PO QAM cyanocobalamin (vitamin B-12) 1,000 mcg capsule 1,000 mcg PO QAM atorvastatin 40 mg tablet See Rx Instructions .Route omeprazole magnesium 20 mg tablet,delayed release (Prilosec OTC) 20 mg PO QAM cholecalciferol (vitamin D3) 10 mcg (400 unit) tablet (Vitamin D3) 10 mcg PO QAM clopidogrel 75 mg tablet 75 mg PO QAM ezetimibe 10 mg tablet (Zetia) 10 mg PO QAM metoprolol succinate 25 mg tablet,extended release 24 hr 25 mg PO QAM prednisone 5 mg tablet 5 mg PO QAM ASK your prescriber and surgeon clopidogrel 75 mg tablet 75 mg PO QAM (will need to hold Plavix/clopidogrel for at least 7 days prior to surgery in order to get spinal anesthesia) DO NOT take the morning of surgery ferrous sulfate 325 mg (65 mg iron) tablet 325 mg PO QAM cyanocobalamin (vitamin B-12) 1,000 mcg capsule 1,000 mcg PO QAM cholecalciferol (vitamin D3) 10 mcg (400 unit) tablet (Vitamin D3) 10 mcg PO QAM Take morning of surgery With a small sip of water, OTHERWISE NOTHING TO EAT OR DRINK AFTER MIDNIGHT: acetaminophen 500 mg tablet (Tylenol Extra Strength) 1,000 mg PO Q6H PRN Pain (if needed) atorvastatin 40 mg tablet See Rx Instructions .Route omeprazole magnesium 20 mg tablet,delayed release (Prilosec OTC) 20 mg PO QAM ezetimibe 10 mg tablet (Zetia) 10 mg PO QAM metoprolol succinate 25 mg tablet,extended release 24 hr 25 mg PO QAM prednisone 5 mg tablet 5 mg PO QAM Take evening before surgery acetaminophen 500 mg tablet (Tylenol Extra Strength) 1,000 mg PO Q6H PRN Pain (if needed) Other Notes If you have any questions please call us at [phone] or [phone] or [phone] or [phone]
--- NOTE | 2023-04-04 08:48 | Anesthesiology Consultation ---
Date of Service April 04, 2023 Assessment & Plan (1) Encounter for pre-operative examination: - Infectious disease screening: Per assessment on 04/04/23: No known infectious disease contacts or current infectious disease symptoms. No noted Covid positive test result in past 90 days. - Outpatient joint assessment: Pt currently scheduled for inpatient pathway. If surgeon requests review for outpatient joint pathway, patient is not recommended candidate for outpatient joint program from anesthesia standpoint. - S/P Left TKA (07/21/18): SAB at L4-5 (x1 attempt) + PNB at [facility] - Clopidogrel instructions: patient made aware that in order for spinal anesthesia, Clopidogrel needs to be held 7 days prior to surgery. Patient voiced understanding/will check if okay with prescriber. - PCP visit (03/29/23): "Blood pressure acceptable today on multiple readings using target BP < 130/80. Recommended obtaining a new cuff with ongoing home mon itoring. We'll continue to monitor at routine office visits. Patient is to call back sooner with any concerns.. Reviewed DEXA scan results with patient. Recommended target Calcium 1200mg/day and Vitamin D 800U/day. Plan for repeat DEXA scan in 02/2025. Patient is to reach out with any concerns. Continue to f/u with PCP for ongoing routine health maintenance." - Cardiology visit (03/29/23): "82-year-old man with a history of hypertension and multivessel coronary artery disease post multivessel PCI who presents for preoperative cardiovascular evaluation prior to right total knee replacement on 04/21/[address] Landeros. He is currently stable and asymptomatic from a cardiovascular standpoint with no anginal symptoms occurring at >4 METS of activity. He has no evidence of CHF or significant valvular abnormality. BP is well controlled in the office today. ECG today shows normal sinus rhythm with no acute abnormality. Given this information, patient is at an acceptable risk to proceed with upcoming surgery without any additional cardiovascular testing or intervention. He can hold Plavix for 7 days prior to surgery but should take an 81 mg aspirin daily while he is holding the Plavix. He should remain on beta nasra therapy throughout the perioperative period." Chart Review Chart Review: Acceptable Risk for Surgery and Patient seen in Pre Admission Testing Teaching & Discussion Pre-Anesthesia Teaching/Discussion Notes: Instructed NPO after midnight before surgery,except medications with 15 cc of water. Medication instructions provided according to the PAT guidelines. History Surgery Operation Date: 04/21/23 11:10 Proposed Procedures p Right Total Knee Arthroplasty - aHi Landeros, Height/Weight Height: 5 ft 5 in Weight: 64.8 kg Allergies Allergy/AdvReac Type Severity Reaction Status Date / Time doxycycline Allergy Mild Rash Verified 03/29/23 13:52 Medications Home Medications Medication Instructions Recorded Confirmed Last Taken acetaminophen 500 mg tablet 1,000 mg PO Q6H PRN Pain 04/19/19 03/29/23 12/03/20 19:00 (Tylenol Extra Strength) ferrous sulfate 325 mg (65 mg 325 mg PO QAM 03/09/20 03/29/23 12/03/20 08:00 iron) tablet cyanocobalamin (vitamin B-12) 1,000 mcg PO QAM 12/06/21 03/29/23 Unknown 1,000 mcg capsule atorvastatin 40 mg tablet See Rx Instructions .Route 09/19/22 03/29/23 Unknown .COMPLEX #90 tabs cholecalciferol (vitamin D3) 10 10 mcg PO QAM 03/27/23 03/29/23 Unknown mcg (400 unit) tablet (Vitamin D3) clopidogrel 75 mg tablet 75 mg PO QAM 03/27/23 03/29/23 Unknown ezetimibe 10 mg tablet (Zetia) 10 mg PO QAM 03/27/23 03/29/23 Unknown metoprolol succinate 25 mg 25 mg PO QAM 03/27/23 03/29/23 Unknown tablet,extended release 24 hr prednisone 5 mg tablet 5 mg PO QAM 03/27/23 03/29/23 Unknown omeprazole magnesium 20 mg 20 mg PO QAM #90 tabs 03/30/23 Unknown tablet,delayed release (Prilosec OTC) Past Medical History Medical History (Updated 04/04/23 @ 10:50 by Luz Marina Ramires) Anemia Chronic BPH loc w urin obs/LUTS CAD (coronary artery disease), [place] coronary artery stents x2 09/26/19, stent x1 09/27/19 Central retinal vein occlusion of right eye Right eye blind Disc degeneration, lumbar Hiatal hernia with GERD Hx of Lyme disease Approximately 2014 Hyperlipidemia Hypertension Myocardial Infarction NSTEMI 09/2019 Osteoarthritis Osteopenia DEXA 02/2023 Poor historian Prediabetes Rheumatoid arthritis Prednisone 5mg daily (chronic) Rosacea Schatzki's ring Sjogrens syndrome Exercise / Class Metabolic Activity II 4-5 Yardwork/Stairs/Walk up hill Past Family History Family History Father Prostate cancer Family hx of colon cancer Colorectal cancer Mother Depression Other No family history of adverse response to anesthesia Denies family history of Ovarian cancer Diabetes Myocardial infarction Breast cancer Lung cancer Stroke Past Surgical History Surgical History History of appendectomy History of colonoscopy History of esophagogastroduodenoscopy (EGD) History of herniorrhaphy Inguinal History of tonsillectomy History of tooth extraction Hx of total knee arthroplasty Left TKA (07/21/18): SAB at L4-5 (x1 attempt) + PNB at [facility] Hx of vasectomy S/P drug eluting coronary stent placement SUSANA X 3 (mid LAD, distal RCA, mid Cx)+ angioplasty distal LAD (without stenting) Past Anesthesia History No Hx of Anesthesia Complications and No Family Hx of Anesthesia Complications History of PONV No Hx of PONV and No Hx of Motion Sickness Social History Smoking Status: Never smoker Do You Dip or Chew Tobacco: No Hx Alcohol Use: Yes Alcohol type: beer alcohol intake frequency: holidays/special occasions only Hx Substance Use: No substance use type: does not use Review of Systems Patient denies chest pain, shortness of breath, dyspnea on exertion, fever, chills, cough, wheezing, palpitations. Physical Exam Vital Signs VITALS BP 162/86 P 68 TEMP 97.9 SP02 97%RA RESP 16 PHYSICAL Full cervical extension range of motion. Full TMJ range of motion. TMD 2.5 finger breaths Mallampati Score 1 Dentition: lower partial Lungs: clear throughout to auscultation Cardiac: regular rate and rhythm, no murmurs noted Spine: normal Carotid arteries: negative bruit Extremities: no LE edema Lab Results Anesthesia Preop Results Results Anesthesia Widget: WBC 4.93 K/ul (4.8-10.8) 04/04/23 Hgb 11.8 g/dl (14.0-18.0) L 04/04/23 Hct 35.0 % (42.0-52.0) L 04/04/23 Plt 160 K/uL (130-400) 04/04/23 Na 140 mmol/L (136-145) 04/04/23 K 4.2 mmol/L (3.5-5.1) 04/04/23 Cl 109 mmol/L (98-107) H 04/04/23 CO2 28 mmol/L (21-32) 04/04/23 BUN 29 mg/dl (6-23) H 04/04/23 Creat 0.94 mg/dl (0.6-1.4) 04/04/23 Glucose Level 88 mg/dl (70-99(Fasting)) 04/04/23 PT 11.1 Seconds (9.0-12.0) 04/04/23 PTT 27.9 Seconds (21.0-31.0) 04/04/23 INR 1.0 (0.9-1.1) 04/04/23 HA1c 6.1 % (4.5-5.6) H 02/07/23 Testing Electrocardiogram Date: 03/29/23 Findings: + NSR @ (72) Chest X-Ray Date: 04/04/23 FINDINGS: Coronary arterial stents. Cardiac mediastinal and hilar silhouettes are within normal limits. Mild hyperinflation with diaphragmatic flattening. No pneumothorax, pleural effusion or airspace consolidation. Degenerative changes of the shoulders and spine. IMPRESSION: No acute process. Echocardiogram Date: 09/26/19 EF: 55-60% Normal LV size, mild concentric LVH. Mid base to mid inferior, inferoseptal hypokinesis. Normal RV size and function. Grade 1 diastolic dysfunction. Mild mitral regurgitation. Aortic valve sclerosis. Mild aortic regurgitation. Borderline pulmonary hypertension with PASP 35-40 mmHg. Cardiac Catheterization Date: 09/27/19 Successful PCI of mid LAD with single drug-eluting stent (2.5 x 30 mm Karan)- Successful angioplasty of small distal LAD with 2.0 balloon. Other Testing Carotid doppler Date: 11/02/18 Atherosclerosis without hemodynamically significant stenosis in the carotid arteries.
--- NOTE | 2023-04-20 15:10 | History & Physical Report ---
Date of Service April 20, 2023 Assessment & Plan (1) Osteoarthritis of right knee: We will proceed with a right total knee arthroplasty. Postoperatively he will be started on aspirin and Plavix for DVT prophylaxis and kept overnight in the hospital for postop medical management. He plans to [facility] upon discharge. History of Present Illness Chief Complaint: Osteoarthritis of the right knee. Primary Care Provider: Hai France DO Tremaine is a pleasant 82-year-old male who I did a left knee replacement in 2019. He has done very well with that. Unfortunately, he is dealing with pain and effusions of his right knee. He recently saw my PA and had an aspiration of his right knee. That did not last long. He is still struggling with some right knee pain. After failing conservative treatment, he has elected proceed with a right total knee arthroplasty. Allergies Allergy/AdvReac Type Severity Reaction Status Date / Time doxycycline Allergy Mild Rash Verified 03/29/23 13:52 Home Medications Medication Instructions Recorded Confirmed Type acetaminophen 500 mg tablet 1,000 mg PO Q6H PRN Pain 04/19/19 03/29/23 History (Tylenol Extra Strength) ferrous sulfate 325 mg (65 mg 325 mg PO QAM 03/09/20 03/29/23 History iron) tablet cyanocobalamin (vitamin B-12) 1,000 mcg PO QAM 12/06/21 03/29/23 History 1,000 mcg capsule atorvastatin 40 mg tablet See Rx Instructions .Route 09/19/22 03/29/23 Rx .COMPLEX #90 tabs cholecalciferol (vitamin D3) 10 10 mcg PO QAM 03/27/23 03/29/23 History mcg (400 unit) tablet (Vitamin D3) clopidogrel 75 mg tablet 75 mg PO QAM 03/27/23 03/29/23 History ezetimibe 10 mg tablet (Zetia) 10 mg PO QAM 03/27/23 03/29/23 History metoprolol succinate 25 mg 25 mg PO QAM 03/27/23 03/29/23 History tablet,extended release 24 hr prednisone 5 mg tablet 5 mg PO QAM 03/27/23 03/29/23 History omeprazole magnesium 20 mg 20 mg PO QAM #90 tabs 03/30/23 Rx tablet,delayed release (Prilosec OTC) Past Med/Surg History Medical History Poor historian Osteopenia DEXA 02/2023 Myocardial Infarction NSTEMI 09/2019 Hypertension Hyperlipidemia Hx of Lyme disease Approximately 2014 BPH loc w urin obs/LUTS Prediabetes CAD (coronary artery disease), [place] coronary artery stents x2 09/26/19, stent x1 09/27/19 Anemia Chronic Hiatal hernia with GERD Central retinal vein occlusion of right eye Right eye blind Disc degeneration, lumbar Schatzki's ring Rheumatoid arthritis Prednisone 5mg daily (chronic) Rosacea Sjogrens syndrome Osteoarthritis Surgical History Hx of vasectomy History of tooth extraction History of tonsillectomy S/P drug eluting coronary stent placement SUSANA X 3 (mid LAD, distal RCA, mid Cx)+ angioplasty distal LAD (without stenting) Hx of total knee arthroplasty Left TKA (07/21/18): SAB at L4-5 (x1 attempt) + PNB at [facility] History of appendectomy History of herniorrhaphy Inguinal History of colonoscopy History of esophagogastroduodenoscopy (EGD) Family History Father Prostate cancer Family hx of colon cancer Colorectal cancer Mother Depression Other No family history of adverse response to anesthesia Denies family history of Ovarian cancer Diabetes Myocardial infarction Breast cancer Lung cancer Stroke Social History Smoking Status: Never smoker Second Hand Exposure: No; Do You Dip or Chew Tobacco: No; Tobacco Cessation Education Requested by Patient: No Hx Alcohol Use: Yes Alcohol type: beer Alcohol Intake Frequency: 2-3 x/Week Alcohol Intake Frequency Comment: with dinner Hx Substance Use: No Preferred Language: Ivorian Communication Ability: Effective Visual Impairment: Limited Hearing Ability: Normal Denial Management Representative Required: No Beliefs That Will Affect Care: None marital status: Current Living Situation: Spouse current occupational status: retired 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 Physical Exam On physical examination of the right knee, he has a varus deformity. His range of motion from 10 to 110 degrees. Pain of the distal medial femoral condyle and over the medial joint line.. Constitutional WD/WN, vitals as above Eyes PERRL, conjunctivae normal, anicteric sclerae ENMT external ear and nose normal, oropharynx normal Neck trachea midline, no thyromegaly Respiratory normal respiratory effort Cardiovascular RRR, no murmur, no edema Gastrointestinal (Abdomen) normal bowel sounds, soft, nontender, no hepatosplenomegaly Psychiatric A+Ox3, euthymic affect Results & Data Results & Data Laboratory Results . Diagnostic Findings X-rays of the right knee show advanced osteoarthritis with joint space narrowing, osteophyte formation, and teab-[id number] articulation. PG Care Time/CCT Total # of Minutes Spent Total Time Spent with Patient: Total time spent is greater than 50% in coordination of care (as documented) at patient's floor/unit and/or counseling patient: Coding Level of Care Code None Diagnoses Osteoarthritis of right knee M17.11
[~2023-04-21 10:08] MED LIST changes: +BUPIVACAINE 0.25% PF 30 ML VIAL ONE; -CEFAZOLIN 2000MG 2,000 MG/15 ML SYR IV SCH; +DEXAMETHASONE SOD INJ 4 MG/ML VIAL ONE; +EPINEPHrine INJ 1 MG/ML AMP ONE; +GABAPENTIN 300 MG CAP PO SCH; -GABAPENTIN 300 MG PO SCH; -LR 15ML/HR IV SCH; +LR 500ML BOLUS, THEN 15ML/HR IV SCH; +ORTHO JOINT MIX INFIL SCH; -ROPIVACAINE 0.5% 5 MG/ML 30 ML VIAL ONE; -ROPIVACAINE 0.5% HCL/PF 150 MG, BUPIVACAINE 0.5% MPF 30 ML, EPINEPHrine 30MG/30ML (OR U... INFIL SCH; +ceFAZolin 2000MG 2,000 MG/15 ML SYR IV SCH; +dexAMETHasone 4 MG TAB PO SCH
[2023-04-21] MEDS ORDERED: MIDAZOLAM HCL 1 MG/ML 2ML VIAL ONE (10:55)
[2023-04-21] MEDS ORDERED: fentaNYL citrate PF 100 MCG/2 ML VIAL ONE ×2 (10:55→13:14)
--- NOTE | 2023-04-21 11:27 | History & Physical Bridge Note ---
Date of Service April 21, 2023 History & Physical Bridge Note I have examined the patient, reviewed the History & Physical and in the interval since the performance of the History & Physical I have noted the following changes of clinical significance: no changes noted
[2023-04-21] MEDS ORDERED: ONDANSETRON INJ 2 MG/ML 2 ML VIAL IV PRN ×2 (11:48→15:50)
[2023-04-21] MEDS ORDERED: ePHEDrine sulfate 50 MG/ML AMP IV PRN (11:48)
[2023-04-21] MEDS ORDERED: ATROPINE SULFATE 0.1 MG/ML 10ML SYR IV PRN (11:48)
[2023-04-21] MEDS ORDERED: fentaNYL citrate PF 100 MCG/2 ML VIAL IV PRN (11:48)
[2023-04-21] MEDS ORDERED: LIDOCAINE 2% 2 ML VIAL/AMP(20MG/ML) INFIL ONE (11:57)
[2023-04-21] MEDS ORDERED: PROPOFOL IV EMULSION 10 MG/ML 20 ML VIAL IV ONE (11:57)
[2023-04-21] MEDS ORDERED: DEXAMETHASONE SOD INJ 4 MG/ML VIAL ONE (11:57)
[2023-04-21] MEDS ORDERED: ONDANSETRON INJ 2 MG/ML 2 ML VIAL ONE (11:57)
[2023-04-21] MEDS ORDERED: ORTHO JOINT ANESTHETIC ONE (12:35)
--- NOTE | 2023-04-21 14:57 | XRay Report ---
RIGHT KNEE 2 VIEWS History: Right total knee arthroplasty. Degenerative arthritis. Postop. FINDINGS: The patient is status post a right total knee arthroplasty. The hardware is intact. No frac ture or dislocation. Skin noemí are in place. IMPRESSION: Right total knee arthroplasty. No evidence for hardware complication. ACT 112: Negative or not required by law. Electronically signed by: Ab Morrison M.D. 04/21/2023 2:55 PM
--- NOTE | 2023-04-21 15:12 | Anesthesiology Progress Note ---
Date of Service April 21, 2023 Anesthesia Post Procedure Vital Signs Vital Signs: Temp Pulse Pulse Resp BP Pulse Ox O2 Del Method 04/21/23 15:00 90 17 148/79 H 100 Oxymask 04/21/23 14:50 86 14 162/83 H 99 Oxymask 04/21/23 14:40 90 13 158/79 H 100 Oxymask 04/21/23 14:30 90 12 136/69 97 Oxymask 04/21/23 14:24 36.8 C 88 16 131/74 99 Oxymask 04/21/23 11:20 74 18 166/94 H 04/21/23 10:53 36.8 C 76 18 195/96 H 98 Room Air O2 Flow Rate 04/21/23 15:00 2 04/21/23 14:50 3 04/21/23 14:40 5 04/21/23 14:30 5 04/21/23 14:24 5 04/21/23 11:20 04/21/23 10:53 Transfer of Care Handoff Completed per policy Notes Mental Status: alert / awake / arousable Patient Amnestic to Procedure: Yes Nausea / Vomiting: adequately controlled Pain: adequately controlled Airway Patency, RR, SpO2: stable & adequate BP & HR: stable & adequate Hydration State: stable & adequate Anesthetic Complications: no major complications apparent
[2023-04-21] MEDS ORDERED: oxyCODONE HCL IR 5 MG TAB (IMMEDIATE RELEASE) PO PRN (15:50)
[2023-04-21] MEDS ORDERED: bisacodyL 10 MG SUPP PR PRN (15:50)
[2023-04-21] MEDS ORDERED: MAGNESIUM HYDROXIDE SUSP 30 ML UDC PO PRN (15:50)
[2023-04-21] MEDS ORDERED: HYDROmorphone INJ 0.5 MG/0.5 ML SYR IV PRN (15:50)
[2023-04-21] MEDS ORDERED: METOCLOPRAMIDE HCL INJ 5 MG/ML 2 ML VIAL IV PRN (15:50)
[2023-04-21] MEDS ORDERED: NALOXONE HCL 0.4 MG/1 ML VIAL/CARP IV PRN (15:50)
[2023-04-21] MEDS: SODIUM CHLORIDE 0.9% 1,000 ML IV SCH (17:33)
[2023-04-21] MEDS ORDERED: SENNA 8.6 MG TAB PO SCH (21:00)
[2023-04-21] MEDS: DOCUSATE SODIUM 100 MG CAP PO SCH (21:45)
[2023-04-21] MEDS: ACETAMINOPHEN 500 MG TAB PO SCH (21:45)
[2023-04-21] MEDS: ASPIRIN 81 MG ECTAB PO SCH (21:46)
[2023-04-21] MEDS: ceFAZolin 2000MG 2,000 MG/15 ML SYR IV SCH (21:46)
[2023-04-22] MEDS: ceFAZolin 2000MG 2,000 MG/15 ML SYR IV SCH (03:23)
[2023-04-22] MEDS: SODIUM CHLORIDE 0.9% 1,000 ML IV SCH (03:23)
[2023-04-22] MEDS: ACETAMINOPHEN 500 MG TAB PO SCH (05:16)
--- NOTE | 2023-04-22 07:38 | Orthopedic Progress Note ---
Date of Service April 22, 2023 Assessment & Plan (1) Status post right knee replacement: Overall he is doing very well. Is not having much pain in the right knee. He will be seen by physical therapy today for ambulation and range of motion exercises. He is on aspirin and Plavix for DVT prophylaxis. The nursing staff can change his dressing later today. He can be discharged home today. He will follow-up with orthopedics in 2 weeks. Demetri Penaloza was seen and examined at bedside this morning. Overall is doing very well. He is not having much pain in the right knee. He has not been out of bed yet. He has no complaints.. Review of Systems All systems reviewed & are unremarkable except as noted in HPI & below. Physical Exam On physical examination of the right knee, the dressing is clean and dry. His leg is out full extension. He has active dorsiflexion plantarflexion of his right ankle.. Results & Data Results & Data Laboratory Results . Diagnostic Findings Postoperative x-rays of the right knee show the prosthesis to be in anatomic alignment without any evidence of fracture, dislocation, or loosening.. PG Care Time/CCT Total # of Minutes Spent Total Time Spent with Patient: Total time spent is greater than 50% in coordination of care (as documented) at patient's floor/unit and/or counseling patient: Coding Level of Care Code 62469 Post Operative Follow-Up Diagnoses Status post right knee replacement Z96.651
--- NOTE | 2023-04-22 07:43 | Discharge Summary ---
Date of Service April 22, 2023 Admission HPI (Per Admitting) Tremaine is a pleasant 82-year-old male who I did a left knee replacement in 2019. He has done very well with that. Unfortunately, he is dealing with pain and effusions of his right knee. He recently saw my PA and had an aspiration of his right knee. That did not last long. He is still struggling with some right knee pain. After failing conservative treatment, he has elected proceed with a right total knee arthroplasty. Admission Exam (Per Admitting) On physical examination of the right knee, he has a varus deformity. His range of motion from 10 to 110 degrees. Pain of the distal medial femoral condyle and over the medial joint line.. Principal Diagnosis Same as "Discharge Diagnosis" noted below under Discharge Instructions. Discharge Exam On physical examination of the right knee, the dressing is clean and dry. His leg is out full extension. He has active dorsiflexion plantarflexion of his right ankle.. Discharge Data Procedures Performed Operation Date: 04/21/23 11:40 Actual Procedures p Right Total Knee Arthroplasty(Right) - Hai Landeros DO Ordered Studies 04/21/23 05:00 US - OR guided needle placemen Routine Hospital Course (1) Status post right knee replacement: On April 21, 2023 Bob arrived at [facility] and underwent a knee replacement without complication. Postoperatively he was started on aspirin and Plavix for DVT prophylaxis and transferred to the general orthopedic floors. His hospital course was uneventful. On postop day #1, his vital signs were stable and his pain was well controlled. He was able to participate well with physical therapy doing ambulation and range of motion exercises. He was then discharged home. He will follow-up with orthopedics in 2 weeks. PG Care Time/CCT Total # of Minutes Spent Total Time Spent with Patient: Total time spent is greater than 50% in coordination of care (as documented) at patient's floor/unit and/or counseling patient: Discharge Plan Discharge Items Patient Disposition: Home - Home Health Services Reason For Visit: POST OP Discharge Diagnosis: Right knee replacement Activity: Per Instructions section Non-emergency contact: Surgeon Call non-emergency contact if: your wound has increased redness and your wound has increased drainage Follow-up/Referrals: Hai France DO [Primary Care Provider] - Diet: Regular Addtl Attending Provider Instructions: Activity and Therapy Recommendations: * If you are using [facility] then therapy will be provided at your home until they feel you have accomplished all of your goals. * If you are using [facility] then Physical Therapy will be provided until they feel you are ready to start Outpatient Physical Therapy. * If you are not using home therapy then Outpatient Physical Therapy should start about 3-5 days from your day of surgery. Therapy will last about 6-10 weeks * It is important not to put a pillow under your knee when you are relaxing or sleeping. It is just as important to make sure you are getting your knee perfectly straight as it is to regain your knee bend. * You were shown a series of exercises in the hospital. Do these exercises three times each day including the exercises you were shown in physical therapy. * Get up and walk several times each day. For the first four weeks, try not to stand or walk for more than one hour at a time. If you do stand or walk for more than one hour, you will not hurt anything, but your leg will likely swell. * As you feel comfortable, you may change from the walker or crutches to a cane and then to independent walking. Medications: * Narcotic You will likely be sent home from the hospital with a prescription for the narcotic pain medication that worked best throughout your stay. * Continue your aspirin and Plavix as prescribed. * Cefadroxil -take the antibiotic twice a day for 10 days to help prevent infections. * Other medications may be prescribed for specific circumstances. If you have any questions, please call the office at . * Resume previous home medications unless otherwise instructed TEDs/Elastic Stockings: The white elastic stockings help limit swelling and prevent blood clots from forming in your legs.~ The more you wear them, the more they work. Wear them for six weeks. Dressing Care: The dressing can be changed after physical therapy on postop day #1. Daily dry dressing changes for a few days, especially if the incision is still draining some. If the incision is not draining then you may leave the noemí open to air. If there is a little bit of drainage or if the noemí are getting stuck on your clothing then cover the incision with a dry dressing. The noemí will be removed at your 2 week follow-up appointment. Showering: You may shower 5 days from the day of surgery as long as the incision is no longer draining. You may shower with the noemí exposed. Let soapy water run over the noemí and pat them dry. Do not scrub or soak the incision. Things To Watch For: * Drainage from the incision site that occurs more than one week after your surgery. * Increased redness at the incision site. * Fever above 102 degrees Fahrenheit. * Unusual chest pain or shortness of breath. * Call [facility] at with any of the above problems Follow-Up Visit: Follow-up with Dr. Landeros's PA (Hai Cervantes) 2-3 weeks after your day of surgery. He will remove your noemí and answer any questions. If you have any additional questions or concerns, Dr Landeros is usually in the office at the same time and will be available An appointment was probably scheduled when you signed-up for surgery in the office. If you have any questions call Office Instructions: More detailed instructions as well as Frequently Asked Questions were provided in a folder by our office when you signed-up for surgery. Please review these instructions when you get home. If you have any further questions or concerns, please feel free to call the office at [phone] Pending Studies at Discharge: No Stand-Alone Forms: My [facility] Medications and DC Order Prescriptions: New oxycodone 5 mg Tablet 5 mg PO Q4H PRN (Reason: pain) Qty: 30 0RF cefadroxil 500 mg capsule 500 mg PO BID 10 Days Qty: 20 0RF aspirin 81 mg Tablet,Delayed Release (Dr/Ec) 81 mg PO DAILY Qty: 0 0RF Continued atorvastatin 40 mg tablet See Rx Instructions .ROUTE .COMPLEX Qty: 90 3RF Dose Instruction: TAKE 1 TABLET BY MOUTH IN THE MORNING FOR HYPERLIPEDEMIA Rx Instructions: TAKE 1 TABLET BY MOUTH IN THE MORNING FOR HYPERLIPEDEMIA omeprazole magnesium [Prilosec OTC] 20 mg tablet,delayed release (DR/EC) 20 mg PO QAM Qty: 90 1RF acetaminophen [Tylenol Extra Strength] 500 mg tablet 1,000 mg PO Q6H PRN (Reason: Pain) cyanocobalamin (vitamin B-12) 1,000 mcg capsule 1,000 mcg PO QAM Patient Comments: QAM Rx Instructions: OTC ferrous sulfate 325 mg (65 mg iron) tablet 325 mg PO QAM cholecalciferol (vitamin D3) [Vitamin D3] 10 mcg (400 unit) Tablet 10 mcg PO QAM prednisone 5 mg tablet 5 mg PO QAM clopidogrel 75 mg tablet 75 mg PO QAM metoprolol succinate 25 mg tablet extended release 24 hr 25 mg PO QAM ezetimibe [Zetia] 10 mg tablet 10 mg PO QAM Admission Data Admit Date/Time: 04/21/23 14:29 Attending Provider: Hai Landeros Admit Provider: Hai Landeros Primary Care Provider: Hai France
[2023-04-22] MEDS ORDERED: dexAMETHasone 4 MG TAB PO SCH (08:00)
[2023-04-22] MEDS: ASPIRIN 81 MG ECTAB PO SCH (08:34)
[2023-04-22] MEDS: DOCUSATE SODIUM 100 MG CAP PO SCH (08:35)
[2023-04-22] MEDS ORDERED: ATORVASTATIN 40 MG TAB PO SCH (09:00)
[2023-04-22] MEDS ORDERED: MULTIVITAMIN TAB PO SCH (09:00)
[2023-04-22] MEDS ORDERED: METOPROLOL SUCC 25MG EXT REL TAB PO SCH (09:00)
[2023-04-22] MEDS ORDERED: PANTOprazole 40 MG TAB PO SCH (09:00)
[2023-04-22] MEDS ORDERED: CLOPIDOGREL BISULFATE 75 MG TAB PO SCH (09:00)
[2023-04-22] MEDS ORDERED: EZETIMIBE 10 MG TAB PO SCH (09:00)
[2023-04-22] MEDS ORDERED: predniSONE 5 MG TAB PO SCH (09:00)
--- OUTSIDE RECORDS SUMMARY | 2023-04-27 20:36 | External Medical Summary | Summary of Care ---
Author Name Unknown Organization [facility] Address [address] [facility] [place] [address] Phone [phone] Care Team Providers Care Substation Designer Name Role Phone Maria D Jimenez MD Primary Care Provider [phone] Reason for Visit * Reason Comments Follow Up 6 month f/u; pt has no new complaints since MAIR[facility] Encounter Details Date Type Department Care Team Description 11/29/2022 Office Visit Ophthalmology, [facility] [address] [place] [address] Santi Campos, [address] [place] [address] Central retinal artery occlusion of right eye*; Central retinal vein occlusion of right eye, unspecified complication status Allergies Active Allergy Reactions Severity Noted Date Comments Doxycycline Rash 01/23/2019 documented as of this encounter (statuses as of 11/29/2022) Medications Medication Sig Dispensed Refills Start Date End Date Status DAILY MULTIVITAMIN PO TABS Take 1 Tab by mouth daily. 0 Active omeprazole (PRILOSEC) 20 MG CPDR Take 1 Capsule by mouth in the morning. 0 12/26/2018 Active Aspirin 81 MG Oral Tablet Delayed Release Take 1 Tablet by mouth in the morning. 0 Active lisinopril (PRINIVIL) 20 MG Tablet Take 1 Tablet by mouth in the morning. 0 11/20/2019 Active BRILINTA 90 MG Tablet Take 1 Tablet by mouth in the morning and 1 Tablet before bedtime. 0 12/02/2019 Active Atorvastatin Calcium 40 MG Oral Tablet (LIPITOR) Take 1 Tablet by mouth in the morning. 0 05/25/2020 Active predniSONE 5 MG Oral Tablet (Deltasone) Take 1 Tablet by mouth in the morning. 0 04/19/2022 Active Metoprolol Succinate ER 25 MG Oral Tablet Extended Release 24 Hour (toPROL XL) Take 1 Tablet by mouth in the morning. 0 11/22/2022 Active Ezetimibe 10 MG Oral Tablet (Zetia) Take 1 Tablet by mouth in the morning. 0 11/05/2022 Active Metoprolol Tartrate 25 MG Oral Tablet (Lopressor) Take 25 mg by mouth 2 times a day. 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 Osteoarthrosis, unspecified whether gene ralized or localized, lower leg 11/11/2014 Dermatitis 08/27/2002 Rosacea 01/22/2002 documented as of this encounter (statuses as of 11/29/2022) Resolved Problems Problem Noted Date Resolved Date Examination of participant in clinical trial 11/20/2008 Overview: Trial participant as of:02/10/2003 Project #: [id number] PI Name: Gentry [facility] Name: Tiffany Carcamo/Amanda [facility] Pager Number: Contact [phone] regarding any serious medical event, if new Rx given, or billing question documented as of this encounter (statuses as of 11/29/2022) Immunizations Name Administration Dates Next Due Seasonal Influenza, Quadriva lent, No Preserve, Adjuvanted, 65+ Yrs, IM 02/20/2020 Seasonal Influenza, Trivalent, Adjuvanted, 65+ y rs 04/10/2019 documented as of this encounter Social History Tobacco Use Types Packs/Day Years Used Date Smoking Tobacco: Never Smokeless Tobacco: Never Alcohol Use Standard Drinks/Week Comments Yes 0 (1 standard drink = 0.6 oz pur e alcohol) socially Sex Assigned at Date Recorded Not on file Job Start Date Occupation Industry Not on file Not on file Not on file documented as of this encounter Progress Notes * Santi Campos DO - 11/29/2022 8:15 AM EDT [facility] [place] HPI: Tremaine Johnson is an 82 year old male who presents for CRVO/CRAO OD. Base Eye Exam Visual Acuity (Snellen - Linear) Right Left Dist sc NLP 20/25 +2 Tonometry (Tonopen, 8:45 AM) Right Left Pressure 55 14 Pupils Dark Light Shape React APD Right 5 Round none None Left 4 3 Round Brisk None Visual Gallardo Right Left Full Restrictions Total superior temporal, inferior temporal, superior nasal, inferior nasal deficiencies Extraocular Movement Right Left Full, Ortho Full, Ortho Neuro/Psych Oriented x3: Yes Mood/Affect: Normal Dilation Both eyes: 0.5% Proparacaine @ 8:45 AM Dilation #2 Both eyes: 1.0% Mydriacyl, 2.5% Phenylephrine @ 8:44 AM Dilation #3 Both eyes: 1.0% Mydriacyl, 2.5% Phenylephrine @ 8:46 AM EXTERNAL: The ocular adnexae are unremarkable. SLE: Lids/Lashes: wnl OU Conjunctiva/Sclera: quiet OU Cornea: microcystic edema OD; clear OS Anterior Chamber: deep and old khaki rbcs OD; deep and quiet OS Iris: trace rubeosis OD; normal OS; no NVI OS Lens: 3+ NSC OD; 2+NSC OS GONIOSCOPY - 10/06/2020: OD: open to CB, +trace NVA nasally and mild inferiorly w/ rbcs inferiorly OS: n/a Dilated fundus exam OD: Vitreous: old VH optic nerve: poor view , prior exams before VH showed 0.3, +pale, resolved hollenhorst plaque appearance in 1st branch inferior artery; regressed NVD macula: hazy view w/ overlying old VH vessels: +sclerotic, venous dilation and tortuosity periphery: +PRP; no RT/RD Dilated fundus exam OS: vitreous: PVD optic nerve: 0.4, no edema/pallor/NVD macula: wnl vessels: wnl periphery: resolved BRVO superonasally, no RT/RD OCT Interpretation: OD: 07-11-19: improved CME - STABLE, prior STABLE, prior improved/dry OS: 01-23-19: wnl, no cme/srfluid, +PVD - stable Fundus Photo Interpretation - 01/23/2019: OD: +attenuated arteries, sclerotic veins, +heme x 4 quads OS: n/a Ultrasound Interpretation - 10/06/2020: OD: +VH, no RD OS: n/a A/P: 1. Combined CRVO/CRAO OD -onset: unknown but prior to 11/01/18 -s/p Avastin (01-23-19, 12/17/18, 11-01-18)--OCT improved/dry but VA unchanged on Snellen -s/p PRP (04-10-19, 02-20-19) -VA NPO -Vitreous hemorrhage OD -onset prior to 06/07 visit -rbcs in AC/rubeosis/NVA/OHT -pt asymptomatic -pt does not want any further intervention at this time; understands potential outcomes -cont. monitor 2. Hollenhorst plaque OD - had carotid duplex 11/02/18 at [facility]--+plaque but no sig stenosis; copy sent to PCP 3. H/o BRVO OS -extramacular -asymptomatic -monitor -Recommend polycarbonate lenses at all times potential for eye injury exists. F/u 6 months - dilate OU x 2, no OCT Santi Campos DO [address]: [place], [place] PCP: Maria D Jimenez MD documented in this encounter Nursing Notes * ARNALDO Morrow - 11/29/2022 8:37 AM EDT Tremaine Johnson is a 82 year old year old male who presents for Combined CRVO/CRAO OD. Last Office Visit: 05/19/2022 (in office), Visit date not found (telemedicine) Patient currently states no change in vision. Are you diabetic? No Do you drive? yes documented in this encounter Plan of Treatment Upcoming Encounters Date Type Specialty Care Team Description 06/05/2023 Office Visit Ophthalmology Santi Campos DO [address] [place] [address] Health Maintenance Due Date Last Done Comments COVID-19 Vaccine (#1) 01/28/1941 Depression Screening, Annual for Pts 12 and Over 1952 DTaP,Tdap,and Td Vaccines (1 - Tdap) 1957 Pneumococcal Vaccine: 65+ Years (1 - PCV) 2003 Zoster Vaccines (2 of 2) 06/22/2021 04/27/2021 Influenza Vaccine (FLU shot) (Season Ended) 2023 02/20/2020, 04/10/2019, 04/13/2018, Additional history exists GARDASIL-HPV IMMUNIZATION SERIES Aged Out No longer eligible based on patient's age to complete this topic Hepatitis B Aged Out No longer eligi ble based on patient's age to complete this topic MENINGOCOCCAL (MENACTRA/MENVEO) Aged Out No longer eligible based on patient's age to complete this topic documented as of this encounter Medical Devices Not on filedocumented as of this encounter Visit Diagnoses Diagnosis Central retinal artery occlusion of right eye- Primary Central artery occlusion of retina Central retinal vein occlusion of right eye, unspecified complication status documented in this encounter Care Teams Substation Designer Relationship Specialty Start Date End Date Maria D Jimenez MD [address] [place] [address] PCP - General Family Medicine 11/01/18 documented as of this encounter
--- NOTE | 2023-04-29 09:57 | Operative Report ---
PG Post Operative Report Pre & Post Diagnosis Operation Date: 04/21/23 11:40 Pre-Op Diagnosis: Degenerative Joint Disease Right Knee Post-Op Diagnosis: Degenerative Joint Disease Right Knee I identified the patient and participated in the time-out.: Yes Procedure Operation Date: 04/21/23 11:40 Actual Procedures p Right Total Knee Arthroplasty(Right) - Hai Landeros DO Surgeon Hai Landeros DO Industrial Maintenance Technician Hai Cervantes PA-C Estimated Blood Loss 100 Findings Consistent with Post-Op Diagnosis Specimens Right femoral and tibial bone Description of Procedure Implants used: I used a Kady Persona total knee arthroplasty system with a size 11 PS femur, G tibia, 37 oval patella, and a size 14 CPS polyethylene bearing. All components were cemented in place with Biomet cement. [facility]. He was seen in the preoperative holding area and the operative extremity was identified and signed. He was given a preoperative antibiotic, TXA, a spinal anesthetic and an adductor nerve block. He was taken back to the operating room and laid on the table in supine position. He was given basic sedation. The operative knee was then prepped and draped in sterile fashion. A timeout was done, and the patient and the operative extremity was properly identified. A midline incision was made directly over the patella. Dissection was taken down to the extensor mechanism. A midvastus arthrotomy was used. The medial retinaculum was released and the fat pad was mostly excised. The knee was flexed and the ACL, PCL, and meniscus were removed. A drill was sent down the center of the femoral canal followed by an intramedullary junie. Off that junie a distal femoral cutting block was placed. 9 mm was resected off the distal femur at 5 of valgus. A posterior referencing AP sizing guide was then placed on the distal femur. The femur measured to be a size 11. 2 drill holes were placed in 3 of external rotation. A 4-in-1 cutting block was then impacted into place. Anterior, posterior, and chamfer cuts were then made. The proximal tibia was then exposed. An external tibial alignment guide was placed. A tibial cut guide was then anchored in place and the proximal tibia was then resected. The posterior aspect of the knee was then opened up and any additional meniscus fragments and osteophytes were removed. The tibia measured to be a size G. The tibial plate was then placed in the appropriate rotation and the tibia was drilled and punched. Trial components were then placed. I used a size 14 CPS polyethylene insert. The knee was brought through a full range of motion and felt to be stable. The peg holes for the femoral component were then drilled. The patella was then everted and 9 mm was resected off the posterior aspect of the patella. The patella measured to be a size 37 oval. 3 peg holes were then drilled. A trial patella was placed. The knee was once again brought through a full range of motion and felt to be stable. Trial components were then removed. The surrounding soft tissues were injected with 100 cc of an orthopedic pain control cocktail. All components were then cemented into place with Biomet cement. The final polyethylene insert was then snapped into place. Once cement was dry the tourniquet was deflated. Hemostasis was obtained. A dilute betadyne lavage was then done for 3 minutes. The joint was then irrigated with normal saline solution. The midvastus arthrotomy was then closed with #1 Vicryl suture. The skin was closed with 2-0 Vicryl, 3-0V lock suture, and noemí. A soft compressive dressing was placed. He was then transferred to a hospital bed and taken to the postanesthesia care unit in stable condition. He tolerated the procedure well. Hai Cervantes PA-C, was present for the entire procedure. He was critical for patient positioning, prepping, draping, retraction exposure, wound closure and application of sterile dressing. I attest to the content of the Intraoperative Record and any orders documented therein. Any exceptions are noted below.
== END 2023-04-22 12:15 | disposition home or self-care (01) ==
LOC: 3E 10:08 → ASU 10:08

== ENCOUNTER 2023-06-08 09:41 | Inpatient (IN) ==
--- NOTE | 2023-06-07 09:05 | Anesthesiology Consultation ---
Date of Service June 07, 2023 Assessment & Plan (1) Encounter for pre-operative examination: Plan - check BSG, CBC with diff, BMP and coags STAT am DOS. - PCP office visit (03/29/23): "Blood pressure acceptable today on multiple readings using target BP < 130/80. Recommended obtaining a new cuff with ongoing home monitoring. We'll continue to monitor at routine office visits. Patient is to call back sooner with any concerns...Continue to f/u with PCP for ongoing routine health maintenance..." - Cardiology office visit (03/29/23): "...history of hypertension and multivessel coronary artery disease post multivessel PCI who presents for preoperative cardiovascular evaluation prior to right total knee replacement on 04/21/[address] Landeros. He is currently stable and asymptomatic from a cardiov ascular standpoint with no anginal symptoms occurring at >4 METS of activity. He has no evidence of CHF or significant valvular abnormality. BP is well controlled in the office today. ECG today shows normal sinus rhythm with no acute abnormality. Given this information, patient is at an acceptable risk to proceed with upcoming surgery without any additional cardiovascular testing or i ntervention. He can hold Plavix for 7 days prior to surgery but should take an 81 mg aspirin daily while he is holding the Plavix. He should remain on beta nasra therapy throughout the perioperative period..." - Per professor of nursing on 06/06/2023: No known infectious disease contacts, current infectious disease symptoms in past 10 days or COVID positive test result in the past 30 days. Chart Review Chart Review: Acceptable Risk for Surgery and Patient NOT seen in Pre Admission Testing History Surgery Operation Date: 06/08/23 11:30 Proposed Procedures p Right Knee Irrigation and Debridement, - Hai Landeros DO s Possible Polyethylene Exchange - Hai Landeros DO Height/Weight Height: 5 ft 5 in Weight: 65.771 kg Allergies Allergy/AdvReac Type Severity Reaction Status Date / Time doxycycline Allergy Mild Rash Verified 06/06/23 16:13 Medications Home Medications Medication Instructions Recorded Confirmed Last Taken acetaminophen 500 mg tablet 1,000 mg PO Q6H PRN Pain 04/19/19 06/06/23 04/21/23 07:00 (Tylenol Extra Strength) ferrous sulfate 325 mg (65 mg 325 mg PO QAM 03/09/20 06/06/23 04/17/23 iron) tablet cyanocobalamin (vitamin B-12) 1,000 mcg PO QAM 12/06/21 06/06/23 04/17/23 1,000 mcg capsule atorvastatin 40 mg tablet See Rx Instructions .Route 09/19/22 06/06/23 04/21/23 07:00 .COMPLEX #90 tabs cholecalciferol (vitamin D3) 10 10 mcg PO QAM 03/27/23 06/06/23 04/17/23 mcg (400 unit) tablet (Vitamin D3) ezetimibe 10 mg tablet (Zetia) 10 mg PO QAM 03/27/23 06/06/23 04/21/23 metoprolol succinate 25 mg 25 mg PO QAM 03/27/23 06/06/23 04/21/23 07:00 tablet,extended release 24 hr prednisone 5 mg tablet 5 mg PO QAM 03/27/23 06/06/23 04/21/23 07:00 omeprazole magnesium 20 mg 20 mg PO QAM #90 tabs 03/30/23 06/06/23 04/21/23 tablet,delayed release (Prilosec OTC) aspirin 81 mg tablet,delayed 81 mg PO DAILY #0 tabs 04/22/23 06/06/23 Unknown release clopidogrel 75 mg tablet 75 mg PO QAM #90 tabs 05/02/23 06/06/23 Unknown oxycodone 5 mg tablet 5 mg PO Q6H PRN pain #30 tabs 05/24/23 06/06/23 Unknown cefadroxil 500 mg capsule 500 mg PO BID 10 days #20 caps 06/06/23 06/06/23 Unknown Past Medical History Medical History (Updated 06/07/23 @ 08:56 by Neeta Henry PA-C) Poor historian Osteopenia DEXA 02/2023 Myocardial Infarction NSTEMI 09/2019 Hypertension Hyperlipidemia Hx of Lyme disease Approximately 2014 BPH loc w urin obs/LUTS Prediabetes CAD (coronary artery disease), [place] coronary artery stents x2 09/26/19, stent x1 09/27/19 Anemia Chronic Hiatal hernia with GERD Central retinal vein occlusion of right eye Right eye blind Disc degeneration, lumbar Schatzki's ring Rheumatoid arthritis Prednisone 5mg daily (chronic) Rosacea Sjogrens syndrome Past Family History Family History Father Prostate cancer Family hx of colon cancer Colorectal cancer Mother Depression Other No family history of adverse response to anesthesia Denies family history of Ovarian cancer Diabetes Myocardial infarction Breast cancer Lung cancer Stroke Past Surgical History Surgical History (Updated 06/07/23 @ 08:56 by Neeta Henry PA-C) History of total right knee replacement 04/21/23 LMA#4 igel + PNB. Hx of vasectomy History of tooth extraction History of tonsillectomy S/P drug eluting coronary stent placement SUSANA X 3 (mid LAD, distal RCA, mid Cx)+ angioplasty distal LAD (without stenting) Hx of total knee arthroplasty Left TKA (07/21/18): SAB at L4-5 (x1 attempt) + PNB at [facility] History of appendectomy History of herniorrhaphy Inguinal History of colonoscopy History of esophagogastroduodenoscopy (EGD) Social History Smoking Status: Never smoker Do You Dip or Chew Tobacco: No Hx Alcohol Use: Yes Alcohol type: beer alcohol intake frequency: holidays/special occasions only Hx Substance Use: No substance use type: does not use Testing Electrocardiogram Date: 03/29/23 NSR, rate 72 bpm Chest X-Ray Date: 04/04/23 Coronary arterial stents. Cardiac mediastinal and hilar silhouettes are within normal limits. Mild hyperinflation with diaphragmatic flattening. No pneumothorax, pleural effusion or airspace consolidation. Degenerative changes of the shoulders and spine. IMPRESSION: No acute process. Echocardiogram Date: 09/26/19 EF 55-60% Mild cLVH Mild base to mid inferior, inferoseptal hypokinesis Grade I diastolic dysfunction Mild mitral regurgitation Mild aortic regurgitation PASP 35-40mmHg Other Testing Carotid doppler 11/02/18 Atherosclerosis without hemodynamically significant stenosis in the carotid arteries.
[~2023-06-08 09:41] MED LIST changes: -ACETAMINOPHEN 500 MG TAB PO SCH; -BUPIVACAINE 0.25% PF 30 ML VIAL ONE; -BUPIVACAINE 0.5 % 5 MG/1 ML PF 10ML VIAL ONE; -DEXAMETHASONE SOD INJ 4 MG/ML VIAL ONE; -EPINEPHrine INJ 1 MG/ML AMP ONE; -FAMOTIDINE 20 MG TAB PO SCH; -GABAPENTIN 300 MG CAP PO SCH; -LR 500ML BOLUS, THEN 15ML/HR IV SCH; -ORTHO JOINT MIX INFIL SCH; +ROPIVACAINE 0.5% 5 MG/ML 30 ML VIAL ONE; -TRANEXAMIC ACID 1,000 MG **IV Intra-op IV SCH; -TRANEXAMIC ACID 1,000 MG **IV Pre-op IV SCH; -dexAMETHasone 4 MG TAB PO SCH
[2023-06-08 10:33] LABS: Basophils # (auto) 0.02 K/uL (0.00-0.20); Basophils % (auto) 0.2 %; Eosinophils # (auto) 0.04 K/uL (0.00-0.50); Eosinophils % (auto) 0.4 %; Hematocrit (blood only) 32.6 % (42.0-52.0); Hemoglobin 10.7 g/dl (14.0-18.0); Immature Granulocytes # (auto) 0.09 K/uL (0.01-0.20); Immature Granulocytes % (auto) 0.8 %; Lymphocytes # (auto) 0.48 K/uL (1.20-3.40); Lymphocytes % (auto) 4.5 %; Mean Corpuscular Hemoglobin 31.4 pg (25.0-34.0); Mean Corpuscular Hgb Conc 32.8 g/dL (32.0-36.0); Mean Corpuscular Volume 95.6 fL (80.0-100.0); Mean Platelet Volume 9.5 fL (9.4-12.4); Monocytes # (auto) 0.81 K/uL (0.11-0.59); Monocytes % (auto) 7.6 %; Neutrophils # (auto) 9.28 K/uL (1.40-6.50); Neutrophils % (auto) 86.5 %; Platelet Count 193 K/uL (130-400); RDW Coefficient of Variation 14.4 % (11.5-14.5); Red Blood Count 3.41 M/uL (4.70-6.10); White Blood Count 10.72 K/ul (4.8-10.8)
[2023-06-08 10:37] LABS: BUN Creatinine Ratio 31.9 (10-20); Calcium 8.8 mg/dl (8.6-10.3); Creatinine Clr Calc Pharmacy 50.9 ml/min; Est GFR (African American) 85.9 ml/min; Est GFR (Non-African American) 74.2 ml/min; Potassium 3.7 mmol/L (3.5-5.1)
--- NOTE | 2023-06-08 10:44 | History & Physical Bridge Note ---
Date of Service June 08, 2023 History & Physical Bridge Note I have examined the patient, reviewed the History & Physical and in the interval since the performance of the History & Physical I have noted the following changes of clinical significance: no changes noted
[2023-06-08 10:48] LABS: Partial Thromboplastin Ratio 1.2; Partial Thromboplastin Time 33 Seconds (21-31)
[2023-06-08] MEDS ORDERED: MIDAZOLAM HCL 1 MG/ML 2ML VIAL ONE (11:24)
[2023-06-08] MEDS ORDERED: fentaNYL citrate PF 100 MCG/2 ML VIAL ONE ×2 (11:24→13:00)
[2023-06-08] MEDS ORDERED: LIDOCAINE 2% 2 ML VIAL/AMP(20MG/ML) INFIL ONE (11:34)
[2023-06-08] MEDS ORDERED: PROPOFOL IV EMULSION 10 MG/ML 20 ML VIAL IV ONE (11:34)
[2023-06-08] MEDS ORDERED: ATROPINE SULFATE 0.1 MG/ML 10ML SYR IV PRN (11:45)
[2023-06-08] MEDS ORDERED: ePHEDrine sulfate 50 MG/ML AMP IV PRN (11:45)
[2023-06-08] MEDS ORDERED: ONDANSETRON INJ 2 MG/ML 2 ML VIAL IV PRN (11:45)
[2023-06-08] MEDS ORDERED: fentaNYL citrate PF 100 MCG/2 ML VIAL IV PRN (11:45)
[2023-06-08 11:47] LABS: C Reactive Protein 13.28 mg/dl (0-0.5)
[2023-06-08] MEDS ORDERED: ONDANSETRON INJ 2 MG/ML 2 ML VIAL ONE (12:54)
--- NOTE | 2023-06-08 13:15 | Operative Report ---
PG Post Operative Report Pre & Post Diagnosis Operation Date: 06/08/23 11:30 Pre-Op Diagnosis: Superficial wound infection RIght Total Knee Arthroplasty Post-Op Diagnosis: Superficial wound infection RIght Total Knee Arthroplasty I identified the patient and participated in the time-out.: Yes Procedure Operation Date: 06/08/23 11:30 Actual Procedures p Right Knee superficial wound irrigation and Debridement with manipulation under anesthesia of the right knee,(Right) - Hai Landeros DO Surgeon Hai Landeros DO Geometry Teacher Hai Cervantes PA-C Estimated Blood Loss 5 Findings Consistent with Post-Op Diagnosis Specimens Superficial knee cultures Indications Bob is a pleasant 82-year-old male who underwent a right knee replacement about 6 weeks ago. He did fine for the first few weeks. He was then overdoing it a little bit. He was crawling around crawl spaces in his house. He developed some anterior knee pain. That led to some opening of an anterior knee wound and some draining from the wound. I saw him in the office. I was concerned with an infection around that site. I did aspirate the knee joint in the office and the aspiration came back negative for infection. We decided to go to the operating room for an I&D of the superficial knee wound. Description of Procedure On June 08, 2023 Tremaine arrived at [facility] for the above procedure. He was seen in the preoperative holding area and the operative extremity identified and signed. He was taken back the operating room and laid on table supine position. He was put under general anesthesia. The right knee was prepped and draped sterile fashion. A timeout was done. The patient and the operative extremity was properly identified. The upper third of the previous knee incision was opened back up. There was a moderate amount of purulent discharge. Mostly seem to be superficial. This purulent discharge was cultured. The wound was then irrigated with a liter of normal saline solution with pulse lavage. The entire wound was then debrided with a rongeur. All necrotic appearing tissue was removed. I was able to feel around the extensor mechanism and the extensor mechanism was fully healed and I did not feel any openings to the joint. I then placed an 18-gauge needle into the joint from a lateral parapatellar position. I aspirated the joint and there was a very small amount of synovial fluid. I then injected 60 cc of normal saline into the knee joint and none of the fluid came out through the wound. The 60 cc of saline were then aspirated back out of the joint. On manipulation was then done under anesthesia. He started with about 95 degrees of flexion as able to flex him to about 130 degrees. The knee was brought through full range of motion and felt to be stable. The wound was then irrigated with an additional 3 L of normal saline solution by pulse lavage. Once I was happy the knee wound was completely debrided and irrigated the wound was then closed with 2-0 nylon suture in a mattress fashion and noemí. A Prevena VAC dressing was placed. He was then extubated and transferred to a hospital bed. He was taken to the postanesthesia care unit in stable condition. He tolerated the procedure well. Hai Cervantes PA-C, was present for the entire procedure. He was critical for patient positioning, prepping, draping, retraction exposure, wound closure and application of sterile dressing. I attest to the content of the Intraoperative Record and any orders documented therein. Any exceptions are noted below.
--- NOTE | 2023-06-08 13:25 | Anesthesiology Progress Note ---
Date of Service June 08, 2023 Anesthesia Post Procedure Vital Signs Vital Signs: Temp Pulse Resp BP Pulse Ox O2 Del Method O2 Flow Rate 06/08/23 13:10 36.5 C 72 20 151/74 H 100 Oxymask 6 06/08/23 10:11 36.6 C 90 20 149/83 H 98 Room Air Transfer of Care Handoff Completed per policy Notes Mental Status: alert / awake / arousable Patient Amnestic to Procedure: Yes Nausea / Vomiting: adequately controlled Pain: adequately controlled Airway Patency, RR, SpO2: stable & adequate BP & HR: stable & adequate Hydration State: stable & adequate Anesthetic Complications: no major complications apparent and Pt Satisfied with anesthetic care
[2023-06-08] MEDS ORDERED: VANCOMYCIN CONSULT ACTIVE PRN (15:02)
[2023-06-08] MEDS ORDERED: CEFEPIME 1,000 MG in SYRINGE 0 ML IV SCH (15:02)
[2023-06-08] MEDS ORDERED: oxyCODONE HCL IR 5 MG TAB (IMMEDIATE RELEASE) PO PRN (15:02)
[2023-06-08] MEDS ORDERED: VANCOMYCIN HCL 1,250 MG in SODIUM CHLORIDE 0.9% 250 ML IV ONE (15:30)
[2023-06-08] MEDS ORDERED: VANCOMYCIN HCL 1,250 MG in SODIUM CHLORIDE 0.9% 250 ML IV SCH (15:30)
[2023-06-08] MEDS: CEFEPIME 2,000 MG in SYRINGE 0 ML IV SCH (16:03)
[2023-06-08] MEDS ORDERED: ACETAMINOPHEN 500 MG TAB PO PRN (16:19)
--- NOTE | 2023-06-08 17:17 | Pharmacy Report ---
Pharmacy PK ABX Note - Date of Service June 08, 2023 - Assessment and Plan Assessment 82 year old M receiving empiric vancomycin and cefepime for treatment of possible knee infection. Pertinent microbiologic data includes: right knee culture (06/06) shows no growth. Renal function appears to be at/near baseline. Patient is s/p right TKA on 04/21/23, now POD #0 s/p irrigation/debridement of knee. Day # 1 of antimicrobial therapy. Plan Vancomycin * Loading dose: 1250 mg IV x 1 * Maintenance dose: 1000 mg IV every 18 hours * Regimen is predicted to achieve target AUC/YARIEL of 400-600 mg/L.hr * Will order vancomycin level if treatment extends beyond 48 hours Cefepime * 2 g IV q12h - appropriately dosed for indication/renal function Pharmacy will continue to follow and will adjust dose/frequency as necessary. Thank you. Pharmacy has transitioned to AUC monitoring for vancomycin. AUC/YARIEL is the preferred PK/PD target and is associated with decreased risk of nephrotoxicity compared to traditional trough targets.
[2023-06-08] MEDS: VANCOMYCIN HCL 1,000 MG in SODIUM CHLORIDE 0.9% 250 ML IV SCH (23:49)
[2023-06-09] MEDS: CEFEPIME 2,000 MG in SYRINGE 0 ML IV SCH ×3 (03:10→19:29)
[2023-06-09 06:59] LABS: Creatinine Clr Calc Pharmacy 62.1 ml/min; Est GFR (African American) 96.6 ml/min; Est GFR (Non-African American) 83.3 ml/min
[2023-06-09] MEDS ORDERED: VANCOMYCIN HCL 1,000 MG in SODIUM CHLORIDE 0.9% 500 ML IV SCH (08:00)
[2023-06-09] MEDS: CLOPIDOGREL BISULFATE 75 MG TAB PO SCH (08:16)
[2023-06-09] MEDS: METOPROLOL SUCC 25MG EXT REL TAB PO SCH (08:16)
[2023-06-09] MEDS: EZETIMIBE 10 MG TAB PO SCH (08:16)
[2023-06-09] MEDS: ASPIRIN 81 MG ECTAB PO SCH (08:16)
[2023-06-09] MEDS: PANTOprazole 40 MG TAB PO SCH (08:16)
[2023-06-09] MEDS: ATORVASTATIN 40 MG TAB PO SCH (08:16)
[2023-06-09] MEDS: predniSONE 5 MG TAB PO SCH (08:17)
--- NOTE | 2023-06-09 09:59 | Orthopedic Progress Note ---
Date of Service June 09, 2023 Assessment & Plan (1) Superficial postoperative wound infection: Overall he is doing quite well today with good pain control to the right knee. At this point he is on empiric antibiotics until final cultures and sensitivities are in. He is currently on vancomycin and cefepime for antibiotic coverage. He may be up and out of bed. He may work with physical therapy and Occupational Therapy today. He can be weightbearing as tolerated. Dr. Landeros would like to keep him for an extra night to allow for IV antibiotics as well as to get a preliminary report back of the organism from the operative site. Anticipated discharge is tomorrow morning. Will continue to follow. Subjective . Tremaine was seen and evaluated at bedside today resting comfortably in his chair in no apparent distress. He notes that his pain is well-controlled at this time. He has been up and ambulating to the bathroom with no issues. His wound VAC is operating properly. He denies any concerns. Review of Systems All systems reviewed & are unremarkable except as noted in HPI & below. Physical Exam . On physical examination of the right knee, dressings are clean, dry, and in place with wound VAC functional and maintain in negative pressure. Leg is out in full extension. Active plantarflexion dorsiflexion to the right ankle. +2 DP and PT pulses. Less than 2-second capillary refill. Normal sensation. Neurovascular intact. Results & Data Results & Data Laboratory Results . Abnormal lab results 06/08/23 Range/Units 10:01 RBC 3.41 L (4.70-6.10) M/uL Hgb 10.7 L (14.0-18.0) g/dl Hct 32.6 L (42.0-52.0) % RDW Std Deviation 50.0 H (36.4-46.3) fL Neut # (Auto) 9.28 H (1.40-6.50) K/uL Lymph # (Auto) 0.48 L (1.20-3.40) K/uL [place] # (Auto) 0.81 H (0.11-0.59) K/uL ESR 29 H (0-20) mm/hr APTT 33 H (21-31) Seconds BUN 30 H (6-23) mg/dl BUN/Creatinine Ratio 31.9 H (10-20) C-Reactive Protein 13.28 H (0-0.5) mg/dl Diagnostic Findings . PG Care Time/CCT Total # of Minutes Spent Total Time Spent with Patient: Total time spent is greater than 50% in coordination of care (as documented) at patient's floor/unit and/or counseling patient: Coding Level of Care Code 18057 Post Operative Follow-Up Diagnoses Superficial postoperative wound infection T81.49XA
[2023-06-09] MEDS: VANCOMYCIN HCL 1,000 MG in SODIUM CHLORIDE 0.9% 250 ML IV SCH (17:56)
[2023-06-10] MEDS: CEFEPIME 2,000 MG in SYRINGE 0 ML IV SCH (03:58)
--- NOTE | 2023-06-10 07:01 | Orthopedic Progress Note ---
Date of Service June 10, 2023 Assessment & Plan (1) Superficial postoperative wound infection: Pulmonary culture results have shown Enterococcus from the superficial wound incision. He is currently been on ceftriaxone and vancomycin. I feel comfortable sending him home today on an oral antibiotic regimen. He will continue to take the cefadroxil and I am going to add ampicillin 4 times a day as a combination therapy to help with the Enterococcus infection. I will follow-up with the sensitivities when they come back. He is currently on aspirin and Plavix which will help with DVT prophylaxis. Full orthopedic discharge instructions were placed. He can be discharged home later today. Demetri Penaloza was seen and examined at bedside this morning. Overall is doing well. Not having much pain in the right knee. He has been up and ambulating. He has been tolerating the antibiotics well. Has no complaints.. Review of Systems All systems reviewed & are unremarkable except as noted in HPI & below. Physical Exam Physical examination of the right knee, there is a little bit of redness and swelling but it is not bad. It feels much better than it did preoperatively. The VAC sponge is to suction.. Results & Data Results & Data Laboratory Results . Diagnostic Findings . PG Care Time/CCT Total # of Minutes Spent Total Time Spent with Patient: Total time spent is greater than 50% in coordination of care (as documented) at patient's floor/unit and/or counseling patient: Coding Level of Care Code 19581 Post Operative Follow-Up Diagnoses Superficial postoperative wound infection T81.49XA
--- NOTE | 2023-06-10 07:03 | Discharge Summary ---
Date of Service June 10, 2023 Principal Diagnosis Same as "Discharge Diagnosis" noted below under Discharge Instructions. Discharge Exam Physical examination of the right knee, there is a little bit of redness and swelling but it is not bad. It feels much better than it did preoperatively. The VAC sponge is to suction.. Discharge Data Procedures Performed Operation Date: 06/08/23 11:30 Actual Procedures p Right Knee Irrigation and Debridement,(Right) - Hai Ladneros DO Ordered Studies 06/08/23 05:00 US - OR guided needle placemen Routine Hospital Course (1) Superficial postoperative wound infection: On June 08, 2023 Tremaine arrived at [facility] and underwent a superficial I&D of his right knee. Cultures were obtained. Postoperatively he was started on ceftriaxone and vancomycin. His hospital course was uneventful. On postop day #1, his vital signs were stable and his pain was well-controlled. He was able to ambulate around the room. He was not having much pain. On postop day #2 he continued to do well. Pulmonary cultures did show an Enterococcus species. He was hoping to go home. I felt it was safe to discharge him to home on a combination of therapy of cefadroxil and ampicillin. He can remove the VAC sponge 7 days from the day of surgery. He will follow with orthopedics in 2 weeks. PG Care Time/CCT Total # of Minutes Spent Total Time Spent with Patient: Total time spent is greater than 50% in coordination of care (as documented) at patient's floor/unit and/or counseling patient: Discharge Plan Discharge Items Patient Disposition: Home - Self-Care Reason For Visit: Infection RIght Total Knee Arthroplasty Discharge Diagnosis: Superficial right knee infection Activity: As commented below Non-emergency contact: Surgeon Call non-emergency contact if: your wound has increased redness and your wound has increased drainage Follow-up/Referrals: Hai France DO [Primary Care Provider] - Diet: Regular Addtl Attending Provider Instructions: ORTHOPEDIC INSTRUCTIONS Activity Recommendations: May weight-bear as tolerated with the right knee. Medications: Continue taking her aspirin and Plavix for DVT prophylaxis Take the cefadroxil twice a day for 4 weeks. Take ampicillin 4 times a day for 4 weeks. The combination therapy of cefadroxil and ampicillin will work better against the Enterococcus infection. Dressing Care: Leave the VAC sponge on for 7 days from the day of surgery. After 7 days, you may remove the VAC sponge. If there is no drainage from the incision you may leave it dry and open to air. You may cover the incision if the noemí and sutures are getting caught on your pants. Showering: You may shower with the VAC sponge in place. Most patients just having the battery pack over the showerhead. Things To Watch For: 1. Drainage from the incision site that occurs more than one week after your surgery. 2. Increased redness at the incision site. 3. Fever above 102 degrees Fahrenheit. 4. Unusual chest pain or shortness of breath. 5. Call [facility] at with any of the above problems Follow-Up Visit: Follow-up with Dr. Landeros's PA (Hai Cervantes) 2-3 weeks after your day of surgery. He will remove your noemí and answer any questions. If you have any additional questions or concerns, Dr Landeros is usually in the office at the same time and will be available Please call the office to set up an appointment for a time that works for you. Pending Studies at Discharge: No Stand-Alone Forms: My [facility] pickrset, Smoking Cessation Medications and DC Order Prescriptions: New ampicillin 500 mg capsule 500 mg PO Q6H 28 Days Qty: 112 0RF Continued atorvastatin 40 mg tablet See Rx Instructions .ROUTE .COMPLEX Qty: 90 3RF Dose Instruction: TAKE 1 TABLET BY MOUTH IN THE MORNING FOR HYPERLIPEDEMIA Rx Instructions: TAKE 1 TABLET BY MOUTH IN THE MORNING FOR HYPERLIPEDEMIA omeprazole magnesium [Prilosec OTC] 20 mg tablet,delayed release (DR/EC) 20 mg PO QAM Qty: 90 1RF clopidogrel 75 mg tablet 75 mg PO QAM Qty: 90 3RF oxycodone 5 mg tablet 5 mg PO Q6H PRN (Reason: pain) Qty: 30 0RF acetaminophen [Tylenol Extra Strength] 500 mg tablet 1,000 mg PO Q6H PRN (Reason: Pain) cyanocobalamin (vitamin B-12) 1,000 mcg capsule 1,000 mcg PO QAM Patient Comments: QAM Rx Instructions: OTC ferrous sulfate 325 mg (65 mg iron) tablet 325 mg PO QAM cholecalciferol (vitamin D3) [Vitamin D3] 10 mcg (400 unit) Tablet 10 mcg PO QAM prednisone 5 mg tablet 5 mg PO QAM metoprolol succinate 25 mg tablet extended release 24 hr 25 mg PO QAM ezetimibe [Zetia] 10 mg tablet 10 mg PO QAM aspirin 81 mg Tablet,Delayed Release (Dr/Ec) 81 mg PO DAILY Qty: 0 0RF cefadroxil 500 mg capsule 500 mg PO BID 20 Days Qty: 40 0RF Rx Instructions: This will be enough for a total of 4 weeks of treatment from the day of surgery in combination of what you already have. Discharge Orders: Discharge Order (Routine); Ordered 06/10/23 Ordered By: Hai Landeros Admission Data Admit Date/Time: 06/08/23 13:27 Attending Provider: Hai Landeros Admit Provider: Hai Landeros Primary Care Provider: Hai France
[2023-06-10 07:34] VITALS: PULSE 78; RESP 16; TEMP 97.3; O2SAT 97
[2023-06-10 07:39] LABS: Creatinine Clr Calc Pharmacy 63.8 ml/min; Est GFR (African American) 97.6 ml/min; Est GFR (Non-African American) 84.2 ml/min
[2023-06-10] MEDS: EZETIMIBE 10 MG TAB PO SCH (07:44)
[2023-06-10] MEDS: CLOPIDOGREL BISULFATE 75 MG TAB PO SCH (07:44)
[2023-06-10] MEDS: ATORVASTATIN 40 MG TAB PO SCH (07:45)
[2023-06-10] MEDS: predniSONE 5 MG TAB PO SCH (07:45)
[2023-06-10] MEDS: PANTOprazole 40 MG TAB PO SCH (07:45)
[2023-06-10] MEDS: ASPIRIN 81 MG ECTAB PO SCH (07:45)
[2023-06-10] MEDS: METOPROLOL SUCC 25MG EXT REL TAB PO SCH (07:46)
[2023-06-10 09:52] VITALS: BP 172/81
--- NOTE | 2023-06-14 16:47 | Coding Query ---
DEBRIDEMENT DOCUMENTATION To promote full compliance with coding requirements relating to patient care, physician participation is requested in all cases of brick shader uncertainty. Please assist us with the question(s) below: Please place an X in the parenthesis (x). If other, please document the finding: Type of Debridement: ( X) Excisional Debridement- Cutting away necrotic, devitalized tissue or slough to the level of viable tissue using a sharp instrument (i.e. scalpel, scissors, etc.) ( ) Non Excisional Debridement- The removal of necrotic, devitalized tissue or slough by means of scraping, mechanical brushing, flushing, or washing (i.e. irrigation,whirlpool);minor removal of loose fragments. ( ) Other (please specify): Depth of debridement: ( ) Skin ( ) Skin and Subcutaneous Tissue (X ) Skin, Subcutaneous Tissue and Muscle ( ) Skin, Subcutaneous Tissue, Muscle and Bone ( ) Other (please specify): Depth of pulse lavage: ( ) Skin ( ) Skin and Subcutaneous Tissue ( ) Skin, Subcutaneous Tissue and Muscle ( ) Skin, Subcutaneous Tissue, Muscle and Bone ( ) Other (please specify): Thank you for your time, PAVEL Malave, [facility]
== END 2023-06-10 10:37 | disposition home or self-care (01) | DRG 857 ==
LOC: ASU 09:41 → 3E 13:27
DX: Z79.52 Long term (current) use of systemic steroids; M06.9 Rheumatoid arthritis, unspecified; T81.41XA Infection following a procedure, superficial incisional surgical site, initial encounter; B95.2 Enterococcus as the cause of diseases classified elsewhere; Z96.653 Presence of artificial knee joint, bilateral; I10 Essential (primary) hypertension; K21.9 Gastro-esophageal reflux disease without esophagitis; T81.31XA Disruption of external operation (surgical) wound, not elsewhere classified, initial encounter; Z88.1 Allergy status to other antibiotic agents; Y83.4 Other reconstructive surgery as the cause of abnormal reaction of the patient, or of later complication, without mention of misadventure at the time of the procedure; Z79.82 Long term (current) use of aspirin; Z79.891 Long term (current) use of opiate analgesic; Z79.899 Other long term (current) drug therapy; Z79.02 Long term (current) use of antithrombotics/antiplatelets; D64.9 Anemia, unspecified; E78.5 Hyperlipidemia, unspecified; Z95.5 Presence of coronary angioplasty implant and graft; I25.2 Old myocardial infarction; I25.10 Atherosclerotic heart disease of native coronary artery without angina pectoris

== ENCOUNTER 2024-02-01 10:23 | Observation (INO) ==
--- NOTE | 2024-02-01 10:54 | Emergency Department Note ---
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 He did not hit the ground. He was diaphoretic and he felt very lightheaded. He did not pass out. He denies any chest pain or shortness of breath preceding or following the incident. Does have a cardiac history in regards to 2 stents. 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 Patient did not fall and hit the ground when he passed out as he was called by friend to him he was sitting on barrel. ADDITIONAL HISTORY OBTAINED: Per HPI Chronic Medical/Social Conditions Affecting Care: Per HPI PAST MEDICAL HISTORY:See Below PAST SURGICAL HISTORY:See Below FAMILY HISTORY:See Below SOCIAL HISTORY:See Below HOME MEDICATIONS:See Below ALLERGIES:See Below VITALS:See Below PHYSICAL EXAMINATION: GENERAL: Sitting up in bed, alert, well appearing, well nourished, no distress, non-toxic EYE EXAM: normal conjunctiva. PERRL and EOM's intact. OROPHARYNX: no exudate, no erythema, lips, buccal mucosa, and tongue normal and mucous membranes are moist NECK: supple, no nuchal rigidity, no adenopathy, non-tender LUNGS: Clear to auscultation. Normal chest wall mechanics HEART: no murmurs, S1 normal and S2 normal ABDOMEN: abdomen soft, non-tender, normo-active bowel sounds, no masses, no rebound or guarding. UPPER EXTREMITIES: upper extremities are grossly normal. LOWER EXTREMITIES: No pitting edema. NEURO EXAM: Normal sensorium, cranial nerves II-XII intact, normal speech, no weakness of arms, no weakness of legs. No drift. Finger to nose intact. Gross sensation intact. MEDICAL DECISION MAKING: Patient is an 83-year-old who presents the ER with above-stated complaint. IV was established blood work is obtained. Labs show no significant leukocytosis. Mild anemia 10. BMP with a chloride of 108. LFTs bilirubin is unremarkable. Troponin was negative. Lipase normal. Patient was given IV fluids. Complete neurologically intact. Updated bedside discussed with the hospitalist for further evaluation management treatment. Will defer to the hospitalist in regards to CT of the chest. Consults/Care Managements Discussions: Per MDM Triage Nursing notes reviewed. Limited review of prior medical records performed Vital Signs: reviewed and remarkable for no significant abnormalities Differential diagnosis: Differential diagnosis includes etiologies such as vasovagal event, infection, hypoglycemia, electrolyte abnormalities, cardiac sources, intracerebral event, toxicologic, neurologic, as well as others were entertained. ER treatment provided: See below Diagnostics interpreted by me include EKG and cardiac monitoring as listed below: -Cardiac Monitoring: An order was placed for continuous cardiac monitoring. The monitor shows a rate of 60 with sinus rhythm. -ECG: Sinus rhythm rate of 60 Normal axis No PVCs QTc 444 -Laboratory studies:Interpreted by me as stated above in MDM and shown below. Imaging studies: Xrays: As interpreted by me: Portable AP upright 1 view of the chest shows left pulmonary mass CTs show: none Procedures:none Critical Care: None Past Med/Surg History Problem List (Updated 02/01/24 @ 15:10 by Ab Nicholas PA-C) Central retinal vein occlusion of right eye Right eye blind Orthostatic hypotension Depression Lyme disease Syncope Hypertension Superficial postoperative wound infection Status post right knee replacement (~04/2023) Elevated alkaline phosphatase level B12 deficiency Osteopenia DEXA 02/2023 CAD (coronary artery disease), yocha dehe coronary artery stents x2 09/26/19, stent x1 09/27/19 S/P drug eluting coronary stent placement SUSANA X 3 (mid LAD, distal RCA, mid Cx)+ angioplasty distal LAD (without stenting) Hyperlipidemia Sjogrens syndrome (Acute) Hiatal hernia with GERD Anemia Chronic Prediabetes BPH loc w urin obs/LUTS Medical History Poor historian Myocardial Infarction Hx of Lyme disease Central retinal vein occlusion of right eye Disc degeneration, lumbar Schatzki's ring Rosacea Surgical History History of total right knee replacement Hx of vasectomy History of tooth extraction History of tonsillectomy Hx of total knee arthroplasty History of appendectomy History of herniorrhaphy History of colonoscopy History of esophagogastroduodenoscopy (EGD) Family History Father Prostate cancer Family hx of colon cancer Colorectal cancer Mother Depression Other No family history of adverse response to anesthesia Denies family history of Ovarian cancer Diabetes Myocardial infarction Breast cancer Lung cancer Stroke Social History Smoking Status: Never smoker Second Hand Exposure: No; Do You Dip or Chew Tobacco: No; Hx Alcohol Use: Yes Alcohol type: beer Alcohol Intake Frequency: 2-3 x/Week Alcohol Intake Frequency Comment: with dinner Hx Substance Use: No Preferred Language: [place] Communication Ability: Effective Visual Impairment: Limited Hearing Ability: Normal Superintendent Gas Distribution Required: No Beliefs That Will Affect Care: None marital status: Current Living Situation: Spouse current occupational status: retired 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 How many Children do You have: 1 Feels Safe at Home: Yes Childhood Exposure to Second-Hand Smoke: No caffeine: Yes Dental Care, Regularly: Yes Physical Activity Frequency: 3-4 Times per Week Seatbelt Use: always Sunscreen Use: No Assistive Devices: Walker Allergies Allergies Allergy/AdvReac Type Severity Reaction Status Date / Time doxycycline Allergy Mild Rash Verified 01/16/24 16:25 Home Meds Home Medications Medication Instructions Recorded Confirmed acetaminophen 500 mg tablet 1,000 mg PO Q6H PRN Pain 04/19/19 02/01/24 (Tylenol Extra Strength) ferrous sulfate 325 mg (65 mg 325 mg PO QAM 03/09/20 02/01/24 iron) tablet cholecalciferol (vitamin D3) 10 10 mcg PO QAM 03/27/23 02/01/24 mcg (400 unit) tablet (Vitamin D3) ezetimibe 10 mg tablet (Zetia) 10 mg PO QAM 03/27/23 02/01/24 amlodipine 5 mg tablet 10 mg PO DAILY 02/01/24 02/01/24 atorvastatin 40 mg tablet 40 mg PO QAM 02/01/24 02/01/24 Previous Rx's Medication Instructions Recorded aspirin 81 mg tablet,delayed 81 mg PO DAILY #0 tabs 04/22/23 release clopidogrel 75 mg tablet 75 mg PO QAM #90 tabs 05/02/23 metoprolol succinate 25 mg 25 mg PO QAM #90 tabs 07/12/23 tablet,extended release 24 hr prednisone 5 mg tablet 5 mg PO QAM #90 tabs 09/06/23 omeprazole magnesium 20 mg 20 mg PO QAM #90 tabs 10/26/23 tablet,delayed release (Prilosec OTC) amoxicillin 500 mg tablet 500 mg PO TID 28 days #84 tabs 01/04/24 cyanocobalamin (vitamin B-12) 2,000 mcg (2 x 1,000 mcg) PO QAM 01/04/24 1,000 mcg capsule #60 caps triamcinolone acetonide 0.025 % 1 applic topical TID PRN rash #454 01/08/24 topical cream grams sertraline 50 mg tablet 50 mg PO DAILY #30 tabs 01/18/24 Results & Data (ED) Vital Signs Vital Signs - 24 hr 02/01/24 10:29 02/01/24 10:30 02/01/24 11:23 Temperature 36.5 C Temperature Source Oral Pulse Rate - Lying Pulse Rate - Sitting Pulse Rate - Standing Pulse Rate 64 59 L Pulse Rate [Apical] Respiratory Rate 16 Respiratory Effort / Characteristics Non-Labored Spontaneous Respiratory Depth Normal Respiratory Pattern Regular Blood Pressure - Lying Blood Pressure - Sitting Blood Pressure- Standing Blood Pressure 158/76 H Blood Pressure [Right Arm] Blood Pressure Mean 103 Blood Pressure Mean [Right Arm] Blood Pressure Position Sitting Pulse Oximetry 99 98 Oxygen Delivery Method Room Air Room Air Sepsis Recent Fever Within 48 Hours No Sepsis New/Unexplained Change in Mental Status N/A Sepsis Action Taken by Nursing No Action Required 02/01/24 11:23 02/01/24 11:23 02/01/24 14:12 Temperature Temperature Source Pulse Rate - Lying Pulse Rate - Sitting Pulse Rate - Standing Pulse Rate 59 L Pulse Rate [Apical] 59 L 56 L Respiratory Rate 16 18 19 Respiratory Effort / Characteristics Respiratory Depth Respiratory Pattern Blood Pressure - Lying Blood Pressure - Sitting Blood Pressure- Standing Blood Pressure Blood Pressure [Right Arm] 133/64 125/69 Blood Pressure Mean Blood Pressure Mean [Right Arm] 87 87 Blood Pressure Position Pulse Oximetry 97 98 98 Oxygen Delivery Method Room Air Room Air Room Air Sepsis Recent Fever Within 48 Hours Sepsis New/Unexplained Change in Mental Status Sepsis Action Taken by Nursing 02/01/24 14:13 02/01/24 15:02 Temperature Temperature Source Pulse Rate - Lying 55 L Pulse Rate - Sitting 57 L Pulse Rate - Standing 64 Pulse Rate 58 L Pulse Rate [Apical] Respiratory Rate Respiratory Effort / Characteristics Respiratory Depth Respiratory Pattern Blood Pressure - Lying 132/70 Blood Pressure - Sitting 146/73 H Blood Pressure- Standing 102/56 L Blood Pressure Blood Pressure [Right Arm] Blood Pressure Mean Blood Pressure Mean [Right Arm] Blood Pressure Position Pulse Oximetry Oxygen Delivery Method Sepsis Recent Fever Within 48 Hours Sepsis New/Unexplained Change in Mental Status Sepsis Action Taken by Nursing Laboratory Data 02/01/24 10:31 02/01/24 10:31 Lab Results 02/01/24 Range/Units 10:31 WBC 6.92 (4.8-10.8) K/ul RBC 3.23 L (4.70-6.10) M/uL Hgb 10.1 L (14.0-18.0) g/dl Hct 29.8 L (42.0-52.0) % MCV 92.3 (80.0-100.0) fL MCH 31.3 (25.0-34.0) pg MCHC 33.9 (32.0-36.0) g/dL RDW Std Deviation 48.7 H (36.4-46.3) fL RDW Coeff of Mireya 14.3 (11.5-14.5) % Plt Count 191 (130-400) K/uL MPV 9.4 (9.4-12.4) fL Immature Gran % (Auto) 1.3 % Neut % (Auto) 85.7 % Lymph % (Auto) 5.5 % [place] % (Auto) 6.9 % Eos % (Auto) 0.3 % Baso % (Auto) 0.3 % Neut # (Auto) 5.93 (1.40-6.50) K/uL Lymph # (Auto) 0.38 L (1.20-3.40) K/uL [place] # (Auto) 0.48 (0.11-0.59) K/uL Eos # (Auto) 0.02 (0.00-0.50) K/uL Baso # (Auto) 0.02 (0.00-0.20) K/uL Immature Gran # (Auto) 0.09 (0.01-0.20) K/uL Sodium 137 (136-145) mmol/L Potassium 4.0 (3.5-5.1) mmol/L Chloride 108 H (98-107) mmol/L Carbon Dioxide 23 (21-32) mmol/L Anion Gap 6 (3-11) BUN 31 H (6-23) mg/dl Creatinine 0.96 (0.6-1.4) mg/dl Est Cr Clr Drug Dosing 50.7 ml/min Est GFR ( Amer) 83.2 ml/min Est GFR (Non-Af Amer) 71.8 ml/min BUN/Creatinine Ratio 32.3 H (10-20) Glucose 97 (70-99(Fasting)) mg/dl Calcium 8.0 L (8.6-10.3) mg/dl Total Bilirubin 0.5 (0.2-1.0) mg/dl AST 21 (13-39) U/L ALT 20 (7-52) U/L Alkaline Phosphatase 136 H (34-104) U/L Troponin I High Sens 8.7 (0-20) pg/ml Total Protein 5.4 L (6.0-8.3) gm/dl Albumin 3.1 L (3.4-5.0) gm/dl Globulin 2.3 L (2.5-4.0) gm/dl Albumin/Globulin Ratio 1.3 (0.9-2) Lipase 69 (11-82) U/L Imaging Data Radiologist's Impression: Chest X-Ray 02/01/24 10:36 XR chest 1V portable HISTORY: Chest pain, nonspecific COMPARISON: Chest 04/04/2023. FINDINGS: No pneumothorax. No pleural effusions. The correct silhouette is mildly enlarged. There is a focal left perihilar airspace opacity which is new from the prior study and measures 5.5 cm. The right lung is clear. No acute fractures. Degenerative changes within the shoulders. IMPRESSION: There is a new 5.5 cm left perihilar airspace opacity. This may represent a pneumonia or pulmonary lesion. One-month chest ray follow-up recommended to ensure resolution. ACT 112: Positive. There are findings on this exam that require communication between the performing entity and the patient following Patient Test Result Information Act ([place] Act 112) guidelines. Electronically signed by: Ab Morrison M.D. 02/01/2024 11:15 AM Discharge Plan Visit Data Chief Complaint: Syncope Stated Complaint: SYNCOPE ED Provider: Preet Yu Discharge Problem: Syncope, Anemia, High serum chloride, Abnormal chest x-ray Forms Stand Alone Forms: My [facility] Prescriptions Prescriptions: No Action clopidogrel 75 mg tablet 75 mg PO QAM Qty: 90 3RF metoprolol succinate 25 mg tablet extended release 24 hr 25 mg PO QAM Qty: 90 3RF prednisone 5 mg tablet 5 mg PO QAM Qty: 90 3RF omeprazole magnesium [Prilosec OTC] 20 mg tablet,delayed release (DR/EC) 20 mg PO QAM Qty: 90 1RF cyanocobalamin (vitamin B-12) 1,000 mcg capsule 2,000 mcg PO QAM Qty: 60 0RF Rx Instructions: otc, not on list from pharmacy 01/31 amoxicillin 500 mg tablet 500 mg PO TID 28 Days Qty: 84 0RF sertraline 50 mg tablet 50 mg PO DAILY Qty: 30 2RF Rx Instructions: 02/01/24: should be taking 50 mg po daily 01/18/24:take 1/2 tab x 1 week and increase to 1 tab if tolerating acetaminophen [Tylenol Extra Strength] 500 mg tablet 1,000 mg PO Q6H PRN (Reason: Pain) Rx Instructions: otc, not on list from pharmacy 01/31 ferrous sulfate 325 mg (65 mg iron) tablet 325 mg PO QAM Rx Instructions: Not on list from pharmacy 01/31 triamcinolone acetonide 0.025 % cream 1 applic topical TID PRN (Reason: rash) Qty: 454 0RF Rx Instructions: filled 01/09/24 cholecalciferol (vitamin D3) [Vitamin D3] 10 mcg (400 unit) Tablet 10 mcg PO QAM Rx Instructions: otc, not on list from pharmacy 01/31 ezetimibe [Zetia] 10 mg tablet 10 mg PO QAM aspirin 81 mg Tablet,Delayed Release (Dr/Ec) 81 mg PO DAILY Qty: 0 0RF Rx Instructions: otc, not on list from pharmacy 01/31 atorvastatin 40 mg tablet 40 mg PO QAM Rx Instructions: TAKE 1 TABLET BY MOUTH IN THE MORNING FOR HYPERLIPEDEMIA amlodipine 5 mg tablet 10 mg PO DAILY Referrals Referrals: Hai France DO [Primary Care Provider] - Discharge Problem: Syncope Qualifiers: Syncope type: unspecified Qualified Code(s): R55 - Syncope and collapse Anemia Qualifiers: Anemia type: unspecified type Qualified Code(s): D64.9 - Anemia, unspecified
--- NOTE | 2024-02-01 11:16 | XRay Report ---
XR chest 1V portable HISTORY: Chest pain, nonspecific COMPARISON: Chest 04/04/2023. FINDINGS: No pneumothorax. No pleural effusions. The correct silhouette is mildly enlarged. There is a focal left perihilar airspace opacity which is new from the prior study and measures 5.5 cm. The ri ght lung is clear. No acute fractures. Degenerative changes within the shoulders. IMPRESSION: There is a new 5.5 cm left perihilar airspace opacity. This may represent a pneumonia or pulmonary [place]. One-month chest ray follow-up recommended to ensure resolution. ACT 112: Positive. There are findings on this exam that require communication between the performing entity and the patient following Patient Test Result Information Act ([place] Act 112) guidelines. Electronically signed by: Ab Morrison M.D. 02/01/2024 11:15 AM
[2024-02-01 11:30] LABS: Basophils # (auto) 0.02 K/uL (0.00-0.20); Basophils % (auto) 0.3 %; Eosinophils # (auto) 0.02 K/uL (0.00-0.50); Eosinophils % (auto) 0.3 %; Hematocrit (blood only) 29.8 % (42.0-52.0); Hemoglobin 10.1 g/dl (14.0-18.0); Immature Granulocytes # (auto) 0.09 K/uL (0.01-0.20); Immature Granulocytes % (auto) 1.3 %; Lymphocytes # (auto) 0.38 K/uL (1.20-3.40); Lymphocytes % (auto) 5.5 %; Mean Corpuscular Hemoglobin 31.3 pg (25.0-34.0); Mean Corpuscular Hgb Conc 33.9 g/dL (32.0-36.0); Mean Corpuscular Volume 92.3 fL (80.0-100.0); Mean Platelet Volume 9.4 fL (9.4-12.4); Monocytes # (auto) 0.48 K/uL (0.11-0.59); Monocytes % (auto) 6.9 %; Neutrophils # (auto) 5.93 K/uL (1.40-6.50); Neutrophils % (auto) 85.7 %; Platelet Count 191 K/uL (130-400); RDW Coefficient of Variation 14.3 % (11.5-14.5); RDW Standard Deviation 48.7 fL (36.4-46.3); Red Blood Count 3.23 M/uL (4.70-6.10); White Blood Count 6.92 K/ul (4.8-10.8)
[2024-02-01 12:02] LABS: Albumin Level 3.1 gm/dl (3.4-5.0); Bilirubin,Total 0.5 mg/dl (0.2-1.0)
[2024-02-01 12:08] LABS: Albumin Globulin Ratio 1.3 (0.9-2); BUN Creatinine Ratio 32.3 (10-20); Creatinine Clr Calc Pharmacy 50.7 ml/min; Est GFR (African American) 83.2 ml/min; Est GFR (Non-African American) 71.8 ml/min; Globulin 2.3 gm/dl (2.5-4.0); Total Protein 5.4 gm/dl (6.0-8.3); Troponin I High Sensitivity 8.7 pg/ml (0-20)
--- NOTE | 2024-02-01 13:46 | History & Physical Report ---
Date of Service February 01, 2024 Assessment & Plan (1) Syncope: Plan: Patient syncopized on the morning of 01/31 No falls; sat down when he began to feel dizzy/diaphoretic and passed out for about 1 minute Witnessed; no seizure-like activity or strokelike symptoms prior to syncope Hx of syncope secondary to dehydration Orthostatic vitals ordered, pending Last echocardiogram in 2019; repeat ordered, pending While dehydration + orthostatic hypotension may have contributed to syncope this morning, neurological Lyme disease may be a large contributing factor (see #2) Continuous telemetry monitoring PT/OT evaluations appreciated Fall precautions A.m. 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 Disease on 01/02 Per son, history of Lyme disease x 3 From history, it appears that patient's new onset depression, feeling off balance, and difficulty concentrating are all tied to timeline of recent Lyme diagnosis He has been on outpatient amoxicillin TID due to doxycycline allergy (which leads to rash) Hold amoxicillin for now Start on Rocephin 2000 g IV q24h Patient does not exhibit meningeal signs on admission; afebrile; no fever Will defer LP at this time Brain MRI with and without contrast ordered for the morning of 02/01 (3) CAD (coronary artery disease), [place] coronary artery: Plan: S/p SUSANA x 3 Patient reports he ran out of aspirin recently, but is unsure when Restart aspirin daily Continue Plavix daily (4) Depression: Plan: Worse within the past month Recently started on Zoloft 2 weeks ago May be secondary to #2 (5) Pulmonary lesion: Plan: CXR noted a 5.5 cm left lung lesion; new from prior Clinically, patient denies any respiratory symptoms / covered with Rocephin in the event of infectious process Will require follow-up CXR/CT if indicated (6) Anemia: Plan: Chronic; Hgb 10.1 on arrival No signs of active bleeding on clinical exam Iron panel on 01/02 okay Continue iron supplementation Trend a.m. CBCs (7) Central retinal vein occlusion of right eye: Plan: Approximately 3 years ago (8) Rheumatoid arthritis: Plan: Continue prednisone 5 mg daily (9) Labile hypertension: (10) Sjogrens syndrome: (11) Orthostatic hypotension: Plan Disposition: Admit to MedSurg telemetry Full code Heart healthy diet VTE PPx: Teds; ASA + Plavix History of Present Illness Chief Complaint: Syncope, Lyme disease Primary Care Provider: Hai France DO Tremaine is a an 83-year-old male with PMH of BPH, prediabetes, GERD, Sjogren syndrome, CAD s/p SUSANA, and labile hypertension. He presented via EMS following a syncopal episode at work on 01/31. Around 9:30 AM, patient was standing but reports he started feel dizzy and diaphoretic. He then sat down in his chair and syncopized to 1 side; this was witnessed and he was caught by a coworker. He did not fall or injure his head. He was out for approximately 1 to 2 minutes. Witnesses did not note any seizure-like activity such as tongue biting, loss of urinary continence, or jerking. Witness and patient deny any strokelike activity prior to syncope such as unilateral deficits, facial droop, or slurred speech. Patient denies history of stroke, but does note he had an "eye stroke" 3 years ago. He does have a past history of syncope; he reports he fainted in an airport in [place] 5 years ago; when he went to the hospital they assumed it was secondary to dehydration. Patient denies any recent falls or injuries to the head or neck. Patient reports he took all of his regular morning medications today. He was diagnosed with Lyme for the third time approximately 1 month ago and was placed on Augmentin (he does not do well on doxycycline due to rashes). Son at the bedside also reports that he has been feeling increasingly depressed recently. He was placed on Zoloft 2 weeks ago and reports he has been feeling off. Patient is on prednisone 5 mg daily for his arthritis and joint pain (which also might be secondary to Lyme). He reports he is supposed to be taking aspirin, but ran out; he is unsure when he ran out. Good compliance with Plavix. History of 2 heart stents. He ambulates with a cane as needed. Last BM was this morning. He does report feeling off balance, but denies dizziness like the room is spinning. He had an ear flush at his PCPs office a couple weeks ago, but does not believe this was contributing to his symptoms. Patient does endorse change in focus; difficulty concentrating; and some brain fog/cognitive deficits x 1 month. He reports that he has no energy. He denies smoking, tobacco use, or recent alcohol use. Patient manages his own medicine at home. Patient's vitals are stable at time of admission. ED course: ROS: Patient endorses feeling off balance (especially after standing), fatigue, difficulty concentrating / cognitive deficits x 1 month, dry mouth, syncope x 1, ringing in ears x 2 years, and diarrhea (patient attributes to Augmentin). Patient denies fever, chills, night-sweats, dizziness, lightheadedness, headaches, difficulty swallowing, changes in vision (loss of vision, blurry vision, or photophobia), neck stiffness, facial droop, slurred speech, chest pain, chest palpitations, SOB, pleuritic CP, abdominal pain, N/V/D, burning with urination, blood in the urine/stool, seizure-like activity (loss of continence, tongue biting, or jerking), or numbness/tingling in the arms or legs. Allergies Allergy/AdvReac Type Severity Reaction Status Date / Time doxycycline Allergy Mild Rash Verified 01/16/24 16:25 Home Medications Medication Instructions Recorded Confirmed Type acetaminophen 500 mg tablet 1,000 mg PO Q6H PRN Pain 04/19/19 02/01/24 History (Tylenol Extra Strength) ferrous sulfate 325 mg (65 mg 325 mg PO QAM 03/09/20 02/01/24 History iron) tablet cholecalciferol (vitamin D3) 10 10 mcg PO QAM 03/27/23 02/01/24 History mcg (400 unit) tablet (Vitamin D3) ezetimibe 10 mg tablet (Zetia) 10 mg PO QAM 03/27/23 02/01/24 History aspirin 81 mg tablet,delayed 81 mg PO DAILY #0 tabs 04/22/23 02/01/24 Rx release clopidogrel 75 mg tablet 75 mg PO QAM #90 tabs 05/02/23 02/01/24 Rx metoprolol succinate 25 mg 25 mg PO QAM #90 tabs 07/12/23 02/01/24 Rx tablet,extended release 24 hr prednisone 5 mg tablet 5 mg PO QAM #90 tabs 09/06/23 02/01/24 Rx omeprazole magnesium 20 mg 20 mg PO QAM #90 tabs 10/26/23 02/01/24 Rx tablet,delayed release (Prilosec OTC) amoxicillin 500 mg tablet 500 mg PO TID 28 days #84 tabs 01/04/24 02/01/24 Rx cyanocobalamin (vitamin B-12) 2,000 mcg (2 x 1,000 mcg) PO QAM 01/04/24 02/01/24 Rx 1,000 mcg capsule #60 caps triamcinolone acetonide 0.025 % 1 applic topical TID PRN rash #[id number] 01/08/24 02/01/24 Rx topical cream grams sertraline 50 mg tablet 50 mg PO DAILY #30 tabs 01/18/24 02/01/24 Rx amlodipine 5 mg tablet 10 mg PO DAILY 02/01/24 02/01/24 History atorvastatin 40 mg tablet 40 mg PO QAM 02/01/24 02/01/24 History Past Med/Surg History Problem List (Updated 02/01/24 @ 15:43 by Ab Nicholas PA-C) Pulmonary lesion Neurological Lyme disease Central retinal vein occlusion of right eye Right eye blind Orthostatic hypotension Depression Lyme disease Syncope Hypertension Superficial postoperative wound infection Status post right knee replacement (~04/2023) Elevated alkaline phosphatase level B12 deficiency Osteopenia DEXA 02/2023 CAD (coronary artery disease), [place] coronary artery stents x2 09/26/19, stent x1 09/27/19 S/P drug eluting coronary stent placement SUSANA X 3 (mid LAD, distal RCA, mid Cx)+ angioplasty distal LAD (without stenting) Hyperlipidemia Sjogrens syndrome (Acute) Hiatal hernia with GERD Anemia Chronic Prediabetes BPH loc w urin obs/LUTS Medical History Poor historian Myocardial Infarction Hx of Lyme disease Central retinal vein occlusion of right eye Disc degeneration, lumbar Schatzki's ring Rosacea Surgical History History of total right knee replacement Hx of vasectomy History of tooth extraction History of tonsillectomy Hx of total knee arthroplasty History of appendectomy History of herniorrhaphy History of colonoscopy History of esophagogastroduodenoscopy (EGD) Family History Father Prostate cancer Family hx of colon cancer Colorectal cancer Mother Depression Other No family history of adverse response to anesthesia Denies family history of Ovarian cancer Diabetes Myocardial infarction Breast cancer Lung cancer Stroke Social History Smoking Status: Never smoker Second Hand Exposure: No; Do You Dip or Chew Tobacco: No; Hx Alcohol Use: Yes Alcohol type: beer Alcohol Intake Frequency: 2-3 x/Week Alcohol Intake Frequency Comment: with dinner Hx Substance Use: No Preferred Language: Kiswahili Communication Ability: Effective Visual Impairment: Limited Hearing Ability: Normal Ged Instructor Required: No Beliefs That Will Affect Care: None marital status: Current Living Situation: Spouse current occupational status: retired 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 How many Children do You have: 1 Feels Safe at Home: Yes Childhood Exposure to Second-Hand Smoke: No caffeine: Yes Dental Care, Regularly: Yes Physical Activity Frequency: 3-4 Times per Week Seatbelt Use: always Sunscreen Use: No Assistive Devices: Denture - Upper Review of Systems Review of Systems: See HPI above Physical Exam Physical Exam: General: no acute distress; lethargic; fatigued; non-toxic appearing; frail appearing; cooperative; SpO2 98% on RA HEENT: normocephalic, atraumatic; erythematous right eye; PERRLA w/ EOMs intact; vision and hearing intact; patient demonstrates ability to protrude and wiggle tongue without unilateral deficits Neck: supple; no lymphadenopathy; trachea midline; patient demonstrates ability to shrug shoulders at against resistance and rotate neck gently left and right without deficits Skin: warm, dry without signs of tenting; no cyanosis; no rashes, bruising, lesions, or erythema noted CV: chest wall NTP; RRR; S1/S2 normal; no murmurs/rubs/gallops; pulses intact and symmetric at radial, DP, and PT Lungs: no acute respiratory distress; symmetrical chest wall expansion; clear breath sounds across all lung coe w/o adventitious sounds; no wheezing ABD: Soft, NTP; BS present; no rebound/guarding; no distention MSK: no tics or fasciculations; no edema noted in the LEs b/l, nonerythematous; 5/5 real estate agency principal strength bilaterally; strength is intact and symmetric in lower extremities bilaterally Neuro: A&Ox3; normal mood and affect; fluent speech, but slow to respond; no focal deficits; sensation grossly intact in the UEs/LEs b/l Results & Data Results & Data Vital Signs (Past 12 Hours) Vital Signs Temp Pulse Pulse Resp BP BP Pulse Ox 02/01/24 11:23 59 L 18 98 02/01/24 11:23 59 L 16 133/64 97 02/01/24 11:23 98 02/01/24 10:30 36.5 C 59 L 16 158/76 H 99 02/01/24 10:29 64 O2 Del Method 02/01/24 11:23 Room Air 02/01/24 11:23 Room Air 02/01/24 11:23 Room Air 02/01/24 10:30 Room Air 02/01/24 10:29 Laboratory Results Abnormal lab results 02/01/24 Range/Units 10:31 RBC 3.23 L (4.70-6.10) M/uL Hgb 10.1 L (14.0-18.0) g/dl Hct 29.8 L (42.0-52.0) % RDW Std Deviation 48.7 H (36.4-46.3) fL Lymph # (Auto) 0.38 L (1.20-3.40) K/uL Chloride 108 H (98-107) mmol/L BUN 31 H (6-23) mg/dl BUN/Creatinine Ratio 32.3 H (10-20) Calcium 8.0 L (8.6-10.3) mg/dl Alkaline Phosphatase 136 H (34-104) U/L Total Protein 5.4 L (6.0-8.3) gm/dl Albumin 3.1 L (3.4-5.0) gm/dl Globulin 2.3 L (2.5-4.0) gm/dl Diagnostic Findings Chest X-Ray 02/01/24 10:36 XR chest 1V portable HISTORY: Chest pain, nonspecific COMPARISON: Chest 04/04/2023. FINDINGS: No pneumothorax. No pleural effusions. The correct silhouette is mildly enlarged. There is a focal left perihilar airspace opacity which is new from the prior study and measures 5.5 cm. The right lung is clear. No acute fractures. Degenerative changes within the shoulders. IMPRESSION: There is a new 5.5 cm left perihilar airspace opacity. This may represent a pneumonia or pulmonary lesion. One-month chest ray follow-up recommended to ensure resolution. ACT 112: Positive. There are findings on this exam that require communication between the performing entity and the patient following Patient Test Result Information Act ([place] Act 112) guidelines. Electronically signed by: Ab Morrison M.D. 02/01/2024 11:15 AM ECG Additional Comments: ECG revealed NSR at 60 bpm; QTc 444 Code Status & VTE Plan Code Status Full code VTE Prophylaxis Plan VTE Prophylaxis will be ordered: Yes Supervising Physician Co-Signing Physician Notes Patient seen and examined, chart reviewed, case discussed with Ab Nicholas PA-C and I agree with the assessment and plan as above except as otherwise noted Labs and images reviewed 83yo M who presented for syncope. 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 Was standing at work when he became dizzy, diaphoretic, and pass out to the side. Had a similar episode due to dehydration 5 years ago. Coworkers caught him, did no hit his head. Unconcious for less than 1 minute. No seizure like activity. 1x prior seizure event due to dehydration. Volume contracted on ER assessment. Also with orthostasis. NO chest pain, chest pressure. He has had balance difficulties worked up as outpatient pending reevaluation for MRI. PT has had Lyme x3, was recently diagnosed in December with LYme and was palced on Augmentin (intolerant of doxy) but has had progressively worsened fatigued/lightheadedness, and balance dysfunction. EKG is without heart block/prolonged MT, he is bradycardic at the bedside but with chronotropic response. He does not have nuchal rigidity, photosensitivity, fever, chills to suggest meningitis. Does have diffuse joint aches which could be reflective of underlying Lyme. Will continue coverage and convert to Rocephin on admission. Echo pending. No meningeal symptoms on exam, nontoxic appearing. MRI pending. Empirically covered for Lyme with rocephin. DDx includes vasovagal/orthostatic, cerebellar CVA will treat as above. He does not appear meningeal at the bedside and will defer LP; if concern for neurologic Lyme involvement persist after above valuation treatment then can follow-up LP at that time. Agree with deferring for now. Patient denies shortness of breath and difficulty breathing, cough and pulmonary symptoms. Does have a 5.5 cm left perihilar opacity? Malignant versus infectious process. Patient is covered with Rocephin as noted. Will need interval follow-up x-ray/CT for reevaluation. Agree with assessment and management above. PG Care Time/CCT Total # of Minutes Spent Total Time Spent with Patient: Total time spent is greater than 50% in coordination of care (as documented) at patient's floor/unit and/or counseling patient: Coding [place] [address] INT INP/OBS CARE 3/75MIN Patient Type Established Medical Decision Making High Complexity Diagnoses Syncope R55 Neurological Lyme disease A69.20 CAD (coronary artery disease), [place] coronary artery I25.10 Depression F32.A Pulmonary lesion J98.4 Anemia D64.9 Central retinal vein occlusion of right eye H34.8112 Rheumatoid arthritis M06.9 Labile hypertension R09.89 Sjogrens syndrome M35.00 Orthostatic hypotension I95.1
[2024-02-01] MEDS: LACTATED RINGER'S 1,000 ML IV SCH (15:16)
[2024-02-01] MEDS: cefTRIAXone SODIUM 2,000 MG/50 ML BAG IV STA (15:50)
[2024-02-01] MEDS: PLASMA-LYTE A 1,000 ML IV SCH (15:51)
--- NOTE | 2024-02-01 16:12 | XCELERA ---
[id number]
--- OUTSIDE RECORDS SUMMARY | 2024-02-01 16:47 | External Medical Summary | Summary of Care ---
Author Name Unknown Organization [facility] Address [address] [facility] [place] [address] Phone [phone] Care Team Providers Care Trimming Operator Name Role Phone Gloriachristiano Hai Avinash SUE Primary Care Provider [phone] Reason for Visit * Reason Comments Follow Up 6 month follow up Encounter Details Date Type Department Care Team (Late st Contact Info) Description 01/30/2024 3:15 PM EDT Office Visit Ophthalmology, [facility] [address] [place] [address] Santi Campos DO [address] [place] [id number] Central retinal artery occlusion of right eye* Allergies Active Allergy Reactions Criticality Noted Date Comments Doxycycline Rash 01/23/2019 documented as of this encounter (statuses as of 01/30/2024) Medications Medication Sig Dispensed Refills Start Date End Date Status DAILY MULTIVITAMIN PO TABS Take 1 Tab by mouth daily. Active omeprazole (PRILOSEC) 20 MG CPDR Take 1 Capsule by mouth in the morning. 0 12/26/2018 Active Aspirin 81 MG Oral Tablet Delayed Release Take 1 Tablet by mouth in the morning. Active lisinopril (PRINIVIL) 20 MG Tablet Take 1 Tablet by mouth in the morning. 11/20/2019 Active BRILINTA 90 MG Tablet Take 1 Tablet by mouth in the morning and 1 Tablet before bedtime. 12/02/2019 Active Atorvastatin Calcium 40 MG Oral Tablet (LIPITOR) Take 1 Tablet by mouth in the morning. 05/25/2020 Active predniSONE 5 MG Oral Tablet (Deltasone) Take 1 Tablet by mouth in the morning. 04/19/2022 Active Metoprolol Succinate ER 25 MG Oral Tablet Extended Release 24 Hour (toPROL XL) Take 1 Tablet by mouth in the morning. 11/22/2022 Active Ezetimibe 10 MG Oral Tablet (Zetia) Take 1 Tablet by mouth in the morning. 11/05/2022 Active Cyanocobalamin 1000 MCG Oral Capsule Take 1 Capsule by mouth in the morning. 12/06/2021 Active Amoxicillin 500 MG Oral Capsule (Amoxil) TAKE 1 CAPSULE BY MOUTH THREE TIMES DAILY FOR 28 DAYS 01/04/2024 Active documented as of this encounter (statuses as of 01/30/2024) Active Problems Problem Noted Date Diagnosed Date Generalized osteoarthritis 11/11/2014 Osteoarthrosis, unspecified whether generalized or localized, lower leg 11/11/2014 Dermatitis 08/27/2002 Rosacea 01/22/2002 documented as of this encounter (statuses as of 01/30/2024) Resolved Problems Problem Noted Date Diagnosed Date Resolved Date Examination of participant in clinical trial 3 11/20/2008 Overview: Trial participant as of:02/10/2003 Project #: [id number] PI Name: Gentry Nelson PI [facility] Name: Tiffany Carcamo/Amanda Sidhu [facility] Pager Number: Contact [phone] regarding any serious medical event, if new Rx given, or billing question documented as of this encounter (statuses as of 01/30/2024) Immunizations Name Administration Dates Next Due Season Influenza, Quad, PF, Adjuvanted, 65+ Yrs, IM (FLUAD) 02/20/2020 Seasonal Influenza, Trivalent, Adjuvanted, 65+ y rs 04/10/2019 documented as of this encounter Social History Tobacco Use Types Packs/Day Years Used Date Smoking Tobacco: Never Smokeless Tobacco: Never Alcohol Use Standard Drinks/Week Comments Yes 0 (1 standard drink = 0.6 oz pur e alcohol) socially Utilities Answer Date Recorded Do you have trouble paying y our heating, water, or electric bill? (Adult - for ages 18 years and over) Not on file 12/05/2023 Is your family able to pay t he heat, water, or electric bill? (Household - for ages 0-17 years) Not on file 12/05/2023 Does your family have access to good internet? (Household - for ages 0-17 years) Not on file 12/05/2023 Social Connections Answer Date Recorded How often do you feel lonely or isolated from those around you? (Adult - for ages 18 years and over) Not on file 12/05/2023 Sex and Gender Information Value Date Recorded Sex Assigned at Not on file Gender Identity Not on file Sexual Orientation Not on file Job Start Date Occupation Industry Not on file Not on file Not on file documented as of this encounter Progress Notes * Santi Campos, DO - 01/30/2024 3:15 PM EDT [facility] [place] Nursing Notes: Sarahi Perez LPN 01/30/24 1519 Signed Tremaine Johnson is a 83 year old year old male who presents for CRVO OD. Last Office Visit: 10/19/2023 (in office), Visit date not found (telemedicine) Patient currently states no change in vision. Are you diabetic? No Do you drive? yes Base Eye Exam Visual Acuity (Snellen - Linear) Right Left Dist sc no vision 20/20 -2 Tonometry (Tonopen, 3:16 PM) Right Left Pressure 19 Pupils Dark Light Shape React APD Right 2 2 Irregular Minimal None Left 3 2 Round Brisk None Visual Gallardo (Counting fingers) Right Left Full Restrictions Total superior temporal, inferior temporal, superior nasal, inferior nasal deficiencies Extraocular Movement Right Left Full, Ortho Full, Ortho Neuro/Psych Oriented x3: Yes Dilation Both eyes: 0.5% Proparacaine @ 3:15 PM Dilation #2 Both eyes: 1.0% Mydriacyl, 2.5% Phenylephrine @ 3:15 PM Dilation #3 Both eyes: 1.0% Mydriacyl, 2.5% Phenylephrine @ 3:19 PM Dilation Comments Patient cautioned that effects of dilation may last 2-7 hours dependant upon individual reaction. It was discussed that driving while dilated is not recommended. EXTERNAL: The ocular adnexae are unremarkable. SLE: Lids/Lashes: wnl OU Conjunctiva/Sclera: quiet OU Cornea: trace edema OD; clear OS Anterior Chamber: deep and old khaki rbcs OD; deep and quiet OS Iris: mild rubeosis OD; normal OS; no NVI OS Lens: 4+ brunescent cataract OD; 2+NSC OS GONIOSCOPY - 10/06/2020: OD: open to CB, +trace NVA nasally and mild inferiorly w/ rbcs inferiorly OS: n/a Dilated fundus exam OD: Vitreous: old VH no view due to cataract and poor dilation prior dfe 11/29/22 showed optic nerve: poor view , prior exams [...] - STABLE, prior STABLE, prior improved/dry OS: 8-7-19: wnl, no cme/srfluid, +PVD - stable Fundus [...] OD - had carotid duplex 11/02/18 at [facility]--+plaque but no sig stenosis; copy sent to PCP 3. H/o BRVO OS -extramacular -asymptomatic -monitor -Recommend polycarbonate lenses at all times potential for eye injury exists. F/u 6 months - dilate OU x 2, no OCT Santi Campos DO [address] CC: [place], [place] PCP: Maria D Jimenez MD documented in this encounter Nursing Notes * Sarahi Perez LPN - 01/30/2024 3:06 PM EDT Tremaine Johnson is a 83 year old year old male who presents for CRVO OD. Last Office Visit: 10/19/2023 (in office), Visit date not found (telemedicine) Patient currently states no change in vision. Are you diabetic? No Do you drive? yes documented in this encounter Plan of Treatment Upcoming Encounters Date Type Department Care Team (Late st Contact Info) Description 08/05/2024 3:00 PM EST Office Visit Ophthalmology, [facility] [address] [place] [address] Santi Campos DO [address] [place] [address] Health Maintenance Due Date Last Done Comments Depression Screening 1952 DTaP,Tdap,and Td Vaccines (1 - Tdap) 1959 Zoster Vaccines (2 of 2) 06/22/2021 04/27/2021 COVID-19 Vaccine (1 - 2022-24 season) 2023 Influenza Vaccine (FLU shot) (#1) 2024 02/20/2020, 04/10/2019, 04/13/2018, Additional history exists Pneumococcal Vaccine: 65+ Years Completed 07/21/2018, 05/31/2016 HPV (Gardasil) Vaccine Aged Out No lo nger eligible based on patient's age to complete this topic Hepatitis B Vaccine Aged Out No longe r eligible based on patient's age to complete this topic MENINGOCOCCAL (MENACTRA/MENVEO) Aged Out No longer eligible based on patient's age to complete this topic documented as of this encounter Medical Devices Not on filedocumented as of this encounter Visit Diagnoses Diagnosis Central retinal artery occlusion of right eye- Primary Central artery occlusion of retina documented in this encounter Care Teams Trimming Operator Relationship Specialty Start Date End Date Hai France DO [address] [place] [address] PCP - General Family Medicine 10/19/23 documented as of this encounter
[2024-02-01] MEDS ORDERED: ACETAMINOPHEN 325 MG TAB PO PRN (17:05)
[2024-02-01] MEDS ORDERED: ONDANSETRON INJ 2 MG/ML 2 ML VIAL IV PRN (17:05)
[2024-02-02 07:21] LABS: Estimated Average Glucose 137 mg/dl; Hemoglobin A1C 6.4 % (4.5-5.6)
[2024-02-02 07:22] LABS: Basophils # (auto) 0.01 K/uL (0.00-0.20); Basophils % (auto) 0.2 %; Eosinophils # (auto) 0.02 K/uL (0.00-0.50); Eosinophils % (auto) 0.4 %; Hematocrit (blood only) 33.9 % (42.0-52.0); Hemoglobin 11.3 g/dl (14.0-18.0); Immature Granulocytes # (auto) 0.05 K/uL (0.01-0.20); Lymphocytes # (auto) 0.41 K/uL (1.20-3.40); Lymphocytes % (auto) 8.2 %; Mean Corpuscular Hemoglobin 30.8 pg (25.0-34.0); Mean Corpuscular Hgb Conc 33.3 g/dL (32.0-36.0); Mean Corpuscular Volume 92.4 fL (80.0-100.0); Mean Platelet Volume 9.2 fL (9.4-12.4); Monocytes # (auto) 0.45 K/uL (0.11-0.59); Neutrophils # (auto) 4.07 K/uL (1.40-6.50); Neutrophils % (auto) 81.2 %; Platelet Count 176 K/uL (130-400); RDW Coefficient of Variation 14.3 % (11.5-14.5); RDW Standard Deviation 48.7 fL (36.4-46.3); Red Blood Count 3.67 M/uL (4.70-6.10); White Blood Count 5.01 K/ul (4.8-10.8)
[2024-02-02 07:39] LABS: BUN Creatinine Ratio 27.8 (10-20); Calcium 8.3 mg/dl (8.6-10.3); Chol HDL Ratio 2.4 (0-5); Creatinine Clr Calc Pharmacy 59.8 ml/min; Est GFR (African American) 94.9 ml/min; Est GFR (Non-African American) 81.9 ml/min; Magnesium 1.8 mg/dl (1.7-2.4)
[2024-02-02] MEDS: ASPIRIN 81 MG ECTAB PO SCH (08:47)
[2024-02-02] MEDS: CLOPIDOGREL BISULFATE 75 MG TAB PO SCH (08:47)
[2024-02-02] MEDS: ATORVASTATIN 40 MG TAB PO SCH (08:47)
[2024-02-02] MEDS: amLODIPine BESYLATE 5 MG TAB PO SCH (08:47)
[2024-02-02] MEDS: EZETIMIBE 10 MG TAB PO SCH (08:47)
[2024-02-02] MEDS: FERROUS SULFATE 325 MG TAB PO SCH (08:48)
[2024-02-02] MEDS: SERTRALINE HCL 50 MG TABLET PO SCH (08:48)
[2024-02-02] MEDS: METOPROLOL SUCC 25MG EXT REL TAB PO SCH (08:48)
[2024-02-02] MEDS: PANTOprazole 40 MG TAB PO SCH (08:49)
[2024-02-02] MEDS: predniSONE 5 MG TAB PO SCH (08:49)
[2024-02-02] MEDS: GADOBUTROL 30ML VIAL IV ONE (12:36)
--- NOTE | 2024-02-02 12:53 | Magnetic Resonance Report ---
MRI OF THE BRAIN WITHOUT AND WITH IV CONTRAST CLINICAL HISTORY: balance deficits; h/o recurrent Lyme COMPARISON STUDY: Facial CT September 17, 2014. TECHNIQUE: Utilizing a 1.5 Anita magnet and dedicated coil, multiplanar, multiecho imaging of the br ain was performed pre and postcontrast administration. IV administration of 6 mL of Gadavist contras t was uneventful. FINDINGS: There are no foci of restricted diffusion to suggest acute infarct. No acute intracranial h emorrhage, midline shift or mass effect is present. Dilatation of the lateral ventricles is proportio nal to sulcal enlargement. This is likely due to atrophy. Basal cisterns are patent. There are no ext ra-axial collections. Flow-voids for the major intracranial vessels are present scattered white matte r T2 hyperintense foci suggest moderate small vessel disease. A small 1.1 cm nodular enhancing extra- axial focus overlying the left orbital roof and anterior left frontal lobe on axial T1 postcontrast i mage 11 of 24 favors a meningioma. There are no additional intracranial masses. Small mucous retentio n cysts within the maxillary sinuses are present. Calvarial signal is normal. IMPRESSION: 1. No acute intracranial findings. 2. Small left anterior cranial fossa meningioma. This is of doubtful significance. 3. Moderate atrophy and small vessel disease. ACT 112: Negative or not required by law. Electronically signed by: Chris De Santiago M.D. 02/02/2024 12:51 PM
--- NOTE | 2024-02-02 13:49 | Hospitalist Progress Note ---
Date of Service February 02, 2024 Assessment & Plan (1) Syncope: Plan: Patient syncopized on the morning of 01/31 No falls; sat down when he began to feel dizzy/diaphoretic and passed out for about 1 minute Witnessed; no seizure-like activity or strokelike symptoms prior to syncope Hx of syncope secondary to dehydration Orthostatic vitals ordered, pending Last echocardiogram in 2019; repeat ordered, pending While dehydration + orthostatic hypotension may have contributed to syncope this morning, neurological Lyme disease may be a large contributing factor (see #2) Continuous telemetry monitoring PT/OT evaluations appreciated Fall precautions A.m. 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 Disease on 01/02 Per son, history of Lyme disease x 3 From history, it appears that patient's new onset depression, feeling off balance, and difficulty concentrating are all tied to timeline of recent Lyme diagnosis He has been on outpatient amoxicillin TID due to doxycycline allergy (which leads to rash) Hold amoxicillin for now Start on Rocephin 2000 g IV q24h Patient does not exhibit meningeal signs on admission; afebrile; no fever Will defer LP at this time Brain MRI with and without contrast ordered for the morning of 02/01 (3) CAD (coronary artery disease), [place] coronary artery: Plan: S/p SUSANA x 3 Patient reports he ran out of aspirin recently, but is unsure when Restart aspirin daily Continue Plavix daily (4) Depression: Plan: Worse within the past month Recently started on Zoloft 2 weeks ago May be secondary to #2 (5) Pulmonary lesion: Plan: CXR noted a 5.5 cm left lung lesion; new from prior Clinically, patient denies any respiratory symptoms / covered with Rocephin in the event of infectious process Will require follow-up CXR/CT if indicated (6) Anemia: Plan: Chronic; Hgb 10.1 on arrival No signs of active bleeding on clinical exam Iron panel on 01/02 okay Continue iron supplementation Trend a.m. CBCs (7) Central retinal vein occlusion of right eye: Plan: Approximately 3 years ago (8) Rheumatoid arthritis: Plan: Continue prednisone 5 mg daily (9) Labile hypertension: (10) Sjogrens syndrome: (11) Orthostatic hypotension: Plan Disposition: Admit to MedSurg telemetry Full code Heart healthy diet VTE PPx: Teddy; ASA + Plavix Admission and Anticipated Discharge Date Admission Date: February 01, 2024 Physical Exam Physical Exam: General: no acute distress; lethargic; fatigued; non-toxic appearing; frail appearing; cooperative; SpO2 98% on RA HEENT: normocephalic, atraumatic; erythematous right eye; PERRLA w/ EOMs intact; vision and hearing intact; patient demonstrates ability to protrude and wiggle tongue without unilateral deficits Neck: supple; no lymphadenopathy; trachea midline; patient demonstrates ability to shrug shoulders at against resistance and rotate neck gently left and right without deficits Skin: warm, dry without signs of tenting; no cyanosis; no rashes, bruising, les ions, or erythema noted CV: chest wall NTP; RRR; S1/S2 normal; no murmurs/rubs/gallops; pulses intact and symmetric at radial, DP, and PT Lungs: no acute respiratory distress; symmetrical chest wall expansion; clear breath sounds across all lung coe w/o adventitious sounds; no wheezing ABD: Soft, NTP; BS present; no rebound/guarding; no distention MSK: no tics or fasciculations; no edema noted in the LEs b/l, nonerythematous; 5/5 manager reading strength bilaterally; strength is intact and symmetric in lower extremities bilaterally Neuro: A&Ox3; normal mood and affect; fluent speech, but slow to respond; no focal deficits; sensation grossly intact in the UEs/LEs b/l Results & Data Results & Data Vital Signs (Past 12 Hours) Vital Signs Temp Pulse Resp BP Pulse Ox Pulse Ox O2 Del Method 02/02/24 11:53 99 02/02/24 11:13 36.5 C 60 18 139/68 99 Room Air 02/02/24 07:51 36.5 C 71 18 138/55 L 96 Room Air 02/02/24 05:04 36.6 C 69 18 132/73 97 Room Air O2 Flow Rate 02/02/24 11:53 0 02/02/24 11:13 02/02/24 07:51 02/02/24 05:04 Laboratory Results Reviewed CBC Reviewed CMP Diagnostic Findings Chest X-Ray 02/01/24 10:36 XR chest 1V portable HISTORY: Chest pain, nonspecific COMPARISON: Chest 04/04/2023. FINDINGS: No pneumothorax. No pleural effusions. The correct silhouette is mildly enlarged. There is a focal left perihilar airspace opacity which is new from the prior study and measures 5.5 cm. The right lung is clear. No acute fractures. Degenerative changes within the shoulders. IMPRESSION: There is a new 5.5 cm left perihilar airspace opacity. This may represent a pneumonia or pulmonary lesion. One-month chest ray follow-up recommended to ensure resolution. ACT 112: Positive. There are findings on this exam that require communication between the performing entity and the patient following Patient Test Result Information Act ([place] Act 112) guidelines. Electronically signed by: Ab Morrison M.D. 02/01/2024 11:15 AM Brain MRI 02/02/24 08:00 MRI OF THE BRAIN WITHOUT AND WITH IV CONTRAST CLINICAL HISTORY: balance deficits; h/o recurrent Lyme COMPARISON STUDY: Facial CT September 17, 2014. TECHNIQUE: Utilizing a 1.5 Anita magnet and dedicated coil, multiplanar, multiecho imaging of the brain was performed pre and postcontrast administration. IV administration of 6 mL of Gadavist contrast was uneventful. FINDINGS: There are no foci of restricted diffusion to suggest acute infarct. No acute intracranial hemorrhage, midline shift or mass effect is present. Dilatation of the lateral ventricles is proportional to sulcal enlargement. This is likely due to atrophy. Basal cisterns are patent. There are no extra-axial collections. Flow-voids for the major intracranial vessels are present scattered white matter T2 hyperintense foci suggest moderate small vessel disease. A small 1.1 cm nodular enhancing extra-axial focus overlying the left orbital roof and anterior left frontal lobe on axial T1 postcontrast image favors a meningioma. There are no additional intracranial masses. Small mucous retention cysts within the maxillary sinuses are present. Calvarial signal is normal. IMPRESSION: 1. No acute intracranial findings. 2. Small left anterior cranial fossa meningioma. This is of doubtful significance. 3. Moderate atrophy and small vessel disease. ACT 112: Negative or not required by law. Electronically signed by: Chris De Santiago M.D. 02/02/2024 12:51 PM Echocardiogram 02/01/2024 Interpretation summary Left ventricular systolic function is normal. No regional wall abnormalities noted. There is mild concentric left ventricular hypertrophy. Left ventricular ejection fraction= 60-65%. There is mild mitral regurgitation. Compared with study of 09/26/2019, no significant change. PG Care Time/CCT Total # of Minutes Spent Total Time Spent with Patient: Total time spent is greater than 50% in coordination of care (as documented) at patient's floor/unit and/or counseling patient: Coding Diagnoses Syncope R55 Neurological Lyme disease A69.20 CAD (coronary artery disease), [place] coronary artery I25.10 Depression F32.A Pulmonary lesion J98.4 Anemia D64.9 Central retinal vein occlusion of right eye H34.8112 Rheumatoid arthritis M06.9 Labile hypertension R09.89 Sjogrens syndrome M35.00 Orthostatic hypotension I95.1
[2024-02-02] MEDS: cefTRIAXone SODIUM 2,000 MG/50 ML BAG IV SCH (14:30)
--- NOTE | 2024-02-02 15:17 | Electrocardiogram Report ---
Test Reason : Blood Pressure : */* mmHG Vent. Rate : 60 BPM Atrial Rate : 60 BPM P-R Int : 152 ms QRS Dur : 90 ms QT Int : 444 ms P-R-T Axes : 53 -5 41 degrees QTcB Int : 444 ms Normal sinus rhythm Normal ECG When compared with ECG of 29-Mar-2023 10:29, (unconfirmed) No significant change was found Confirmed by Carrington Najera ([id number]) on 02/02/2024 3:16:47 PM Referred By: REFERRED SELF Confirmed By: Carrington Najera
[2024-02-02 15:23] VITALS: BP 135/71; RESP 16; TEMP 98.2; O2SAT 98
--- NOTE | 2024-02-02 17:00 | Discharge Summary ---
Discharge Summary Date of Service February 02, 2024 Principal Dx & Hospital Course #1 = Principal Diagnosis (1) Syncope: Patient syncopized on the morning of 01/31 No falls; sat down when he began to feel dizzy/diaphoretic and passed out for about 1 minute Witnessed; no seizure-like activity or strokelike symptoms prior to syncope Hx of syncope secondary to dehydration Positive orthostatic vital signs -- educated patient on orthostatic hypotension and how to manage Echocardiogram 02/01/2024 showed no regional wall abnormalities, EF= 60-65%. Compared with echo from September 2019, no significant change. While dehydration + orthostatic hypotension may have contributed this syncopal episode, neurological Lyme disease may be a large contributing factor (see #2) (2) Neurological Lyme disease: Dx of Lyme Disease on 01/02 Per son, history of Lyme disease x 3 From history, it appears that patient's new onset depression, feeling off balance, and difficulty concentrating are all tied to timeline of recent Lyme diagnosis He has been on outpatient amoxicillin TID due to doxycycline allergy (which leads to rash) Given ceftriaxone while hospitalized Patient did not exhibit meningeal signs on admission; afebrile; no fever -- deferred LP at this time Brain MRI with and without contrast showed no acute intracranial findings. Amoxicillin continued on discharge (3) CAD (coronary artery disease), bois forte coronary artery: S/p SUSANA x 3 Patient reports he ran out of aspirin recently, but is unsure when Restart aspirin daily Continue Plavix daily (4) Depression: Worse within the past month Recently started on Zoloft 2 weeks ago May be secondary to #2 (5) Pulmonary lesion: CXR noted a 5.5 cm left lung lesion; new from prior Clinically, patient denies any respiratory symptoms / covered with Rocephin in the event of infectious process Will require follow-up CXR/CT if indicated (6) Anemia: Chronic; Hgb 10.1 on arrival No signs of active bleeding on clinical exam Iron panel on 01/02 okay Continue iron supplementation (7) Central retinal vein occlusion of right eye: Approximately 3 years ago (8) Rheumatoid arthritis: Continue prednisone 5 mg daily Plan CODE STATUS: Full code Notes For Next Care Provider Patient presented after syncopal episode at work, likely multifactorial including dehydration, orthostatic hypotension, and possibly neuro Lyme. Patient was not taking aspirin prior to hospitalization, reporting that he ran out. Aspirin was restarted, but recommend ensuring that patient is continuing to take. Chest x-ray on admission noted a 5.5 cm left lung lesion that is new. Recommend follow-up CXR/CT as indicated. Medication Changes From Visit Restarted aspirin Admission HPI Per Admitting Provider Tremaine is a an 83-year-old male with PMH of BPH, prediabetes, GERD, Sjogren syndrome, CAD s/p SUSANA, and labile hypertension. He presented via EMS following a syncopal episode at work on 01/31. Around 9:30 AM, patient was standing but reports he started feel dizzy and diaphoretic. He then sat down in his chair and syncopized to 1 side; this was witnessed and he was caught by a coworker. He did not fall or injure his head. He was out for approximately 1 to 2 minutes. Witnesses did not note any seizure-like activity such as tongue biting, loss of urinary continence, or jerking. Witness and patient deny any strokelike activity prior to syncope such as unilateral deficits, facial droop, or slurred speech. Patient denies history of stroke, but does note he had an "eye stroke" 3 years ago. He does have a past history of syncope; he reports he fainted in an airport in [place] 5 years ago; when he went to the hospital they assumed it was secondary to dehydration. Patient denies any recent falls or injuries to the head or neck. Patient reports he took all of his regular morning medications today. He was diagnosed with Lyme for the third time approximately 1 month ago and was placed on Augmentin (he does not do well on doxycycline due to rashes). Son at the bedside also reports that he has been fe eling increasingly depressed recently. He was placed on Zoloft 2 weeks ago and reports he has been feeling off. Patient is on prednisone 5 mg daily for his arthritis and joint pain (which also might be secondary to Lyme). He reports he is supposed to be taking aspirin, but ran out; he is unsure when he ran out. Good compliance with Plavix. History of 2 heart stents. He ambulates with a cane as needed. Last BM was this morning. He does report feeling off balance, but denies dizziness like the room is spinning. He had an ear flush at his PCPs office a couple weeks ago, but does not believe this was contributing to his symptoms. Patient does endorse change in focus; difficulty concentrating; and some brain fog/cognitive deficits x 1 month. He reports that he has no energy. He denies smoking, tobacco use, or recent alcohol use. Patient manages his own medicine at home. Patient's vitals are stable at time of admission. ED course: ROS: Patient endorses feeling off balance (especially after standing), fatigue, difficulty concentrating / cognitive deficits x 1 month, dry mouth, syncope x 1, ringing in ears x 2 years, and diarrhea (patient attributes to Augmentin). Patient denies fever, chills, night-sweats, dizziness, lightheadedness, headaches, difficulty swallowing, changes in vision (loss of vision, blurry vision, or photophobia), neck stiffness, facial droop, slurred speech, chest pain, chest palpitations, SOB, pleuritic CP, abdominal pain, N/V/D, burning with urination, blood in the urine/stool, seizure-like activity (loss of continence, tongue biting, or jerking), or numbness/tingling in the arms or legs. Admission Exam Per Admitting Provider General: no acute distress; lethargic; fatigued; non-toxic appearing; frail appearing; cooperative; SpO2 98% on RA HEENT: normocephalic, atraumatic; erythematous right eye; PERRLA w/ EOMs intact; vision and hearing intact; patient demonstrates ability to protrude and wiggle tongue without unilateral deficits Neck: supple; no lymphadenopathy; trachea midline; patient demonstrates ability to shrug shoulders at against resistance and rotate neck gently left and right without deficits Skin: warm, dry without signs of tenting; no cyanosis; no rashes, bruising, lesions, or erythema noted CV: chest wall NTP; RRR; S1/S2 normal; no murmurs/rubs/gallops; pulses intact and symmetric at radial, DP, and PT Lungs: no acute respiratory distress; symmetrical chest wall expansion; clear breath sounds across all lung coe w/o adventitious sounds; no wheezing ABD: Soft, NTP; BS present; no rebound/guarding; no distention MSK: no tics or fasciculations; no edema noted in the LEs b/l, nonerythematous; 5/5 senior drafter strength bilaterally; strength is intact and symmetric in lower extremities bilaterally Neuro: A&Ox3; normal mood and affect; fluent speech, but slow to respond; no focal deficits; sensation grossly intact in the UEs/LEs b/l Discharge Exam General: No acute distress, nondiaphoretic, frail-appearing elderly male. Skin: The skin was without rashes, erythema, edema, or bruising. Cardiac: Regular rate and rhythm without murmurs gallops or rubs. Pulm: Clear to auscultation bilaterally without wheezes, rales or rhonchi. No respiratory distress. 98% on room air. Abdominal: Soft, nontender, nondistended. Bowel sounds present. Neuro: A&O x3. No focal neurological deficits. Discharge Plan Discharge Items Patient Disposition: Home - Self-Care Reason For Visit: SYNCOPE Discharge Diagnosis: Syncopal episode Activity: Resume your previous activity Non-emergency contact: Primary Care Provider Call non-emergency contact if: you have any medication questions and your symptoms worsen Follow-up/Referrals: Hai France DO [Primary Care Provider] - 02/06/24 10:00 am Diet: Heart Healthy Addtl Attending Provider Instructions: Mr. Johnson, You were admitted to the hospital after a syncopal episode at work. This was most likely due to a combination of factors including dehydration, orthostatic hypotension, and possibly neuro Lyme. Orthostatic hypotension is low blood pressure when you stand up from sitting or lying down. It causes symptoms such as dizziness, lightheadedness, blurry vision, fainting, falling. To help prevent symptoms of orthostatic hypotension: Change positions slowly from lying to standing. When getting out of bed, sit on the side of bed with your legs down for at least 30 seconds before standing. This gives your body time to adjust to the position change. Drink plenty of fluids. Please follow-up with your PCP. Your appointment is scheduled for 02/06/24 at 10:00 AM. It was a pleasure taking care of you while you were in the hospital, Eloisa Singh PA-C Pending Studies at Discharge: No Stand-Alone Forms: My [facility] Caregivers, Smoking Cessation Medications and DC Order Prescriptions: Continued clopidogrel 75 mg tablet 75 mg PO QAM Qty: 90 3RF metoprolol succinate 25 mg tablet extended release 24 hr 25 mg PO QAM Qty: 90 3RF prednisone 5 mg tablet 5 mg PO QAM Qty: 90 3RF omeprazole magnesium [Prilosec OTC] 20 mg tablet,delayed release (DR/EC) 20 mg PO QAM Qty: 90 1RF cyanocobalamin (vitamin B-12) 1,000 mcg capsule 2,000 mcg PO QAM Qty: 60 0RF Rx Instructions: otc, not on list from pharmacy 01/31 amoxicillin 500 mg tablet 500 mg PO TID 28 Days Qty: 84 0RF sertraline 50 mg tablet 50 mg PO DAILY Qty: 30 2RF Rx Instructions: 02/01/24: should be taking 50 mg po daily 01/18/24:take 1/2 tab x 1 week and increase to 1 tab if tolerating acetaminophen [Tylenol Extra Strength] 500 mg tablet 1,000 mg PO Q6H PRN (Reason: Pain) Rx Instructions: otc, not on list from pharmacy 01/31 ferrous sulfate 325 mg (65 mg iron) tablet 325 mg PO QAM Rx Instructions: Not on list from pharmacy 01/31 triamcinolone acetonide 0.025 % cream 1 applic topical TID PRN (Reason: rash) Qty: 454 0RF Rx Instructions: filled 01/09/24 cholecalciferol (vitamin D3) [Vitamin D3] 10 mcg (400 unit) Tablet 10 mcg PO QAM Rx Instructions: otc, not on list from pharmacy 01/31 ezetimibe [Zetia] 10 mg tablet 10 mg PO QAM aspirin 81 mg Tablet,Delayed Release (Dr/Ec) 81 mg PO DAILY Qty: 0 0RF Rx Instructions: otc, not on list from pharmacy 01/31 atorvastatin 40 mg tablet 40 mg PO QAM Rx Instructions: TAKE 1 TABLET BY MOUTH IN THE MORNING FOR HYPERLIPEDEMIA amlodipine 5 mg tablet 10 mg PO DAILY Discharge Orders: Discharge Order (Routine); Ordered 02/02/24 Ordered By: Eloisa Alcantara/Other Patient Handouts: A1C, Orthostatic Hypotension Admission Data Admit Date/Time: 02/01/24 14:28 Attending Provider: Ramiro Gilbert Admit Provider: Eliazar Tejeda Primary Care Provider: Hai France Other Providers: Eliazar Tejeda Hospital Stay Data Consultations 02/01/24 12:37 ED Decision to Admit Stat Diagnostic Imagining Performed Chest X-Ray 02/01/24 10:36 XR chest 1V portable HISTORY: Chest pain, nonspecific COMPARISON: Chest 04/04/2023. FINDINGS: No pneumothorax. No pleural effusions. The correct silhouette is mildly enlarged. There is a focal left perihilar airspace opacity which is new from the prior study and measures 5.5 cm. The right lung is clear. No acute fractures. Degenerative changes within the shoulders. IMPRESSION: There is a new 5.5 cm left perihilar airspace opacity. This may represent a pneumonia or pulmonary lesion. One-month chest ray follow-up recommended to ensure resolution. ACT 112: Positive. There are findings on this exam that require communication between the performing entity and the patient following Patient Test Result Information Act ([place] Act 112) guidelines. Electronically signed by: Ab Morrison M.D. 02/01/2024 11:15 AM Brain MRI 02/02/24 08:00 MRI OF THE BRAIN WITHOUT AND WITH IV CONTRAST CLINICAL HISTORY: balance deficits; h/o recurrent Lyme COMPARISON STUDY: Facial CT September 17, 2014. TECHNIQUE: Utilizing a 1.5 Anita magnet and dedicated coil, multiplanar, multiecho imaging of the brain was performed pre and postcontrast administration. IV administration of 6 mL of Gadavist contrast was uneventful. FINDINGS: There are no foci of restricted diffusion to suggest acute infarct. No acute intracranial hemorrhage, midline shift or mass effect is present. Dilatation of the lateral ventricles is proportional to sulcal enlargement. This is likely due to atrophy. Basal cisterns are patent. There are no extra-axial collections. Flow-voids for the major intracranial vessels are present scattered white matter T2 hyperintense foci suggest moderate small vessel disease. A small 1.1 cm nodular enhancing extra-axial focus overlying the left orbital roof and anterior left frontal lobe on axial T1 postcontrast image favors a meningioma. There are no additional intracranial masses. Small mucous retention cysts within the maxillary sinuses are present. Calvarial signal is normal. IMPRESSION: 1. No acute intracranial findings. 2. Small left anterior cranial fossa meningioma. This is of doubtful significance. 3. Moderate atrophy and small vessel disease. ACT 112: Negative or not required by law. Electronically signed by: Chris De Santiago M.D. 02/02/2024 12:51 PM Pending Results Patient Have Any Pending Studies at Discharge: No Discharge Instructions Given to Patient (Per Discharging Provider) Mr. Johnson, Abdirashid were admitted to the hospital after a syncopal episode at work. This was most likely due to a combination of factors including dehydration, orthostatic hypotension, and possibly neuro Lyme. Orthostatic hypotension is low blood pressure when you stand up from sitting or lying down. It causes symptoms such as dizziness, lightheadedness, blurry vision, fainting, falling. To help prevent symptoms of orthostatic hypotension: Change positions slowly from lying to standing. When getting out of bed, sit on the side of bed with your legs down for at least 30 seconds before standing. This gives your body time to adjust to the position change. Drink plenty of fluids. Please follow-up with your PCP. Your appointment is scheduled for 02/06/24 at 10:00 AM. It was a pleasure taking care of you while you were in the hospital, Eloisa Singh PA-C Total Time Total Time Spent Total Time Spent (In Minutes): Greater than 30 minutes spent completing this discharge process including direct patient care, medication reconciliation, documentation, review of labs and images, and coordination of care. Coding Level of Care Code 47765 INP/OBS DISCH >30 MIN Diagnoses Syncope R55 Neurological Lyme disease A69.20 CAD (coronary artery disease), bois forte coronary artery I25.10 Depression F32.A Pulmonary lesion J98.4 Anemia D64.9 Central retinal vein occlusion of right eye H34.8112 Rheumatoid arthritis M06.9
[2024-02-02 17:15] VITALS: PULSE 56
== END 2024-02-02 17:36 | disposition home or self-care (01) | DRG 869 ==
LOC: ED 10:23 → INTOOBSV 14:28 → SUATTDRO 14:28 → 2N 14:28